=== PATIENT | female | born 1985 | race Caucasian/White ===

== ENCOUNTER 2016-04-05 01:48 | Emergency (ER) | payer OTHER ==
[~2016-04-05] VITALS: Ht 157.5 cm; Wt 62.4 kg
[~2016-04-05 01:48] MED LIST: IBUP-1449 PO; PENI-82 PO
[2016-04-05 01:55] VITALS: TEMP 36.9; Ht 157.5 cm; Wt 62.4 kg
[2016-04-05] MEDS ORDERED: KETOROLAC TROMETHAMINE 30 MG/ML VIAL IV STA (02:29)
[2016-04-05] MEDS ORDERED: ALBUT/IPRATROP 3MG/0.5MG NEB 3 ML VIAL INH STA (02:29)
[2016-04-05 02:33] LABS: BASO % 0.5 %; BASO ABS # 0.04 K/uL (0-0.2); COMPLETE YES; EOS % 1.8 %; HEMATOCRIT 38.6 % (37-47); IG% 0.1 %; LYMPH % 39.4 %; LYMPH ABS # 3.27 K/uL (1.2-3.4); MEAN CELL VOLUME 78.8 fL (80-100); MEAN CORPUSCULAR HEMOGLOBIN 26.7 pg (25-34); MEAN CORPUSCULAR HGB CONC 33.9 g/dl (32-36); MEAN PLATELET VOLUME 10.9 fL (7.4-10.4); MONO % 9.5 %; NEUT % 48.7 %; PLATELET COUNT 268 K/uL (130-400); WHITE BLOOD COUNT 8.31 K/uL (4.8-10.8)
--- NOTE | 2016-04-05 02:34 | EMERGENCY ROOM VISIT NOTE ---
History Report prepared by Paula: Priyanka Davis Under the Supervision of: Dr. Lebron Byrd D.O. First contact with patient: 01:51 Chief Complaint: CHEST PAIN Stated Complaint: CHEST PAIN Nursing Triage Summary: Pt presents als for evaluation of chest pain starting 1 hour prior to arrival. Radiates into right neck. Productive cough for yellow sputum. History of Present Illness The patient is a 30 year old female who presents to the Emergency Room with complaints of constant right sided chest pain for the past hour. She was getting ready to go to sleep when her pain started. It quickly worsened. She states that the pain is present all the time with occasional sharp waves of pain. She rates her pain as a 10/10 in severity. The patient's pain radiates into her right shoulder and neck. She took Percocet [employer] for pain. Taking a deep breath exacerbates her pain. She notes a cough with productive yellow sputum that just started tonight. She has not been around anyone with influenza. She reports some nausea. The patient denies vomiting and any personal history of blood clots. She has never had pain like this before. Her LNMP was March 09. She was brought to the ED by ambulance. She was given 4 aspirin and nitro en route that did not alleviate her pain. Source of History: patient Onset: 1 hour ago Position: chest (right) Symptom Intensity: 10/10 Quality: sharp Timing: constant, worsening Modifying Factors (Worsening): breathing Associated Symptoms: + cough (productive), + nausea, No vomiting Note: Pt denies any personal history of blood clots. Review of Systems See HPI for pertinent positives & negatives. A total of 10 systems reviewed and were otherwise negative. Past Medical & Surgical Medical Problems: (1) Acute liver failure (2) BREECH PRESENTAT-DELIVER (3) Deliver-Single Liveborn (4) DENTAL DISORDER NOS (5) FEM PELV INFLAM DIS NOS (6) Hepatitis C (7) Prev Delivry W/ Or W/O Ment Antepart Cond Family History FH: HTN (hypertension) FH: cancer FH: diabetes mellitus FH: seizures Heart disease Social History Smoking Status: Current Every Day Smoker Alcohol Use: none Drug Use: none Marital Status: single Housing Status: lives with family Occupation Status: employed Current/Historical Medications Scheduled Albuterol Hfa (Ventolin Hfa), 1 PUFF INH Q4 Allergies Coded Allergies: Tramadol (Verified Adverse Reaction, Intermediate, HEADACHE-MIGRAINES, ) Physical Exam Vital Signs Date Time Temp Pulse Resp B/P Pulse Ox O2 Delivery O2 Flow Rate FiO2 04/05/16 04:42 88 18 121/68 99 04/05/16 02:44 Room Air 04/05/16 02:44 Room Air 04/05/16 02:08 86 04/05/16 01:55 36.9 100 18 119/71 98 Room Air Physical Exam GENERAL: Patient is awake, alert, somewhat anxious appearing and uncomfortable. EYES: The conjunctivae are clear. The pupils are round and reactive. EARS, NOSE, MOUTH AND THROAT: The nose is without any evidence of any deformity. Mucous membranes are moist tongue is midline NECK: The neck is nontender and supple. RESPIRATORY: Splinting respirations were noted without evidence of wheezing rhonchi or rales. CARDIOVASCULAR: Regular rate and rhythm noted there no murmurs rubs or gallops normal S1 normal S2 GASTROINTESTINAL: The abdomen is soft. Bowel sounds are present in all quadrants. Abdomen is nontender MUSCULOSKELETAL/EXTREMITIES: There is no evidence of gross deformity full range of motion is noted in the hips and shoulders SKIN: There is no obvious evidence of any rash. There are no petechiae, pallor or cyanosis noted. NEUROLOGIC: Patient is awake alert and oriented x3 Medical Decision & Procedures ER Provider Diagnostic Interpretation: Chest x-ray as interpreted by myself reveals no free air, no pneumothorax, no infiltrate, no acute disease. Laboratory Results 04/05/16 01:45 Red Blood Count 4.90, Mean Corpuscular Volume 78.8, Mean Corpuscular Hemoglobin 26.7, Mean Corpuscular Hemoglobin Concent 33.9, Mean Platelet Volume 10.9, Neutrophils (%) (Auto) 48.7, Lymphocytes (%) (Auto) 39.4, Monocytes (%) (Auto) 9.5, Eosinophils (%) (Auto) 1.8, Basophils (%) (Auto) 0.5, Neutrophils # (Auto) 4.05, Lymphocytes # (Auto) 3.27, Monocytes # (Auto) 0.79, Eosinophils # (Auto) 0.15, Basophils # (Auto) 0.04 04/05/16 01:45 Test 04/05/16 01:45 04/05/16 02:00 White Blood Count 8.31 K/uL (4.8-10.8) Red Blood Count 4.90 M/uL (4.2-5.4) Hemoglobin 13.1 g/dL (12.0-16.0) Hematocrit 38.6 % (37-47) Mean Corpuscular Volume 78.8 fL (80-100) Mean Corpuscular Hemoglobin 26.7 pg (25-34) Mean Corpuscular Hemoglobin Concent 33.9 g/dl (32-36) Platelet Count 268 K/uL (130-400) Mean Platelet Volume 10.9 fL (7.4-10.4) Neutrophils (%) (Auto) 48.7 % Lymphocytes (%) (Auto) 39.4 % Monocytes (%) (Auto) 9.5 % Eosinophils (%) (Auto) 1.8 % Basophils (%) (Auto) 0.5 % Neutrophils # (Auto) 4.05 K/uL (1.4-6.5) Lymphocytes # (Auto) 3.27 K/uL (1.2-3.4) Monocytes # (Auto) 0.79 K/uL (0.11-0.59) Eosinophils # (Auto) 0.15 K/uL (0-0.5) Basophils # (Auto) 0.04 K/uL (0-0.2) RDW Standard Deviation 38.9 fL (36.4-46.3) RDW Coefficient of Variation 13.7 % (11.5-14.5) Immature Granulocyte % (Auto) 0.1 % Immature Granulocyte # (Auto) 0.01 K/uL (0.00-0.02) Prothrombin Time 11.0 SECONDS (9.0-12.0) Prothromb Time International Ratio 1.0 (0.9-1.1) Activated Partial Thromboplast Time 26.0 SECONDS (21.0-31.0) Partial Thromboplastin Ratio 1.0 Anion Gap 10.0 mmol/L (3-11) Est Creatinine Clear Calc Drug Dose 104.7 ml/min Estimated GFR () 134.8 Estimated GFR (Non- 116.3 BUN/Creatinine Ratio 8.9 (10-20) Calcium Level 8.8 mg/dl (8.5-10.1) Total Bilirubin 0.3 mg/dl (0.2-1) Aspartate Amino Transf (AST/SGOT) 124 U/L (15-37) Alanine Aminotransferase (ALT/SGPT) 215 U/L (12-78) Alkaline Phosphatase 74 U/L (45-117) Troponin I < 0.015 ng/ml (0-0.045) Total Protein 8.0 gm/dl (6.4-8.2) Albumin 3.9 gm/dl (3.4-5.0) Globulin 4.1 gm/dl (2.5-4.0) Albumin/Globulin Ratio 1.0 (0.9-2) Human Chorionic Gonadotropin, Qual NEG (NEG) Urine Color YELLOW Urine Appearance CLEAR (CLEAR) Urine pH 8.0 (4.5-7.5) Urine Specific [place] 1.009 (1.000-1.030) Urine Protein NEG (NEG) Urine Glucose (UA) NEG (NEG) Urine Ketones NEG (NEG) Urine Occult Blood 2+ (NEG) Urine Nitrite NEG (NEG) Urine Bilirubin NEG (NEG) Urine Urobilinogen NEG (NEG) Urine Leukocyte Esterase NEG (NEG) Urine WBC (Auto) 5-10 /hpf (0-5) Urine RBC (Auto) 10-30 /hpf (0-4) Urine Hyaline Casts (Auto) 1-5 /lpf (0-5) Urine Epithelial Cells (Auto) >30 /lpf (0-5) Urine Bacteria (Auto) 2+ (NEG) Laboratory results per my review. Medications Administered Medications (Trade) Dose Ordered Sig/Aury Route Start Time Stop Time Status Last Admin Dose Admin Ketorolac Tromethamine (Toradol Inj) 30 mg NOW STAT IV 04/05/16 02:29 04/05/16 02:30 DC 04/05/16 02:47 30 MG Albuterol/ Ipratropium (Duoneb) 3 ml NOW STAT INH 04/05/16 02:29 04/05/16 02:30 DC 04/05/16 02:47 3 ML ECG Indication: chest pain Rate (beats per minute): 91 Rhythm: normal sinus Findings: no acute ischemic change, no ectopy Comparison ECG Date: 05/27/15 Change: no significant change ED Course 0217: The patient was evaluated in room A12B. A complete history and physical examination were performed. 0229: Duoneb 3 ml INH, Toradol 30 mg IV 0413: I reassessed the patient at this time. She is feeling better and resting comfortably. I discussed the results and treatment plan with the patient. I answered all pertaining questions that she had. She expressed understanding and verbalized agreement. The patient will be discharged home. 0415: Oxycodone HCl 1 homepack PO Medical Decision Differential diagnosis: Etiologies such as cardiac ischemia, aortic dissection, pulmonary embolism, pneumonia, pneumothorax, musculoskeletal, infections, pericarditis, myocarditis , esophageal rupture, gastrointestinal, as well as others were entertained. Nursing notes reviewed. The patient is a 30-year-old female who presented to the emergency department for an evaluation of chest pain. The patient developed right-sided chest pain. The pain was very reproducible especially with deep breathing. The patient was not tachycardic or hypoxic. Her d-dimer was negative. Her EKG did not show any acute changes from previous and her cardiac biomarkers were negative. She was treated with IV pain medication and a DuoNeb in the emergency department. On subsequent reevaluation she was feeling much better and sleeping comfortably. I discussed the patient's laboratory and radiographic studies with her. I discussed the limitations of the emergency department workup for chest pain with her. At this time she was encouraged to rest and avoid any strenuous activity. She was also encouraged to call her family doctor in the morning to schedule a follow-up appointment. She was also encouraged to return to the emergency Department immediately if symptoms change worsen or the need arises. Impression Primary Impression: Right-sided chest pain Additional Impression: Pleurisy Scribe Attestation The scribe's documentation has been prepared under my direction and personally reviewed by me in its entirety. I confirm that the note above accurately reflects all work, treatment, procedures, and medical decision making performed by me. Departure Information Dispostion Home / Self-Care Prescriptions Albuterol Hfa (VENTOLIN HFA) 200 Puffs/[id number] Mcg Aers 1 PUFF INH Q4, #1 INHALER Prov: Lebron Byrd, DO 04/05/16 Referrals Angela Santizo (PCP) Forms HOME CARE DOCUMENTATION FORM, IMPORTANT VISIT INFORMATION, Work Instructions Patient Instructions [facility], [place] Additional Instructions Continue using Motrin and Tylenol as directed for pain. Call your family doctor in the morning to schedule a follow-up appointment. Rest and avoid any strenuous activity. Have your liver function studies rechecked again in 1 week and cousin were elevated in the emergency department this evening. Problem Qualifiers
[2016-04-05 02:47] LABS: PREG INTERNAL NEGATIVE QC NEG CLEAR BACKGROUND; PREG INTERNAL POSITIVE QC POS CONTROL LINE
[2016-04-05 02:50] LABS: ALT/SGPT 215 U/L (12-78); AST/SGOT 124 U/L (15-37); BLOOD UREA NITROGEN 6 mg/dl (7-18); BUN/CREATININE RATIO 8.9 (10-20); CALCIUM 8.8 mg/dl (8.5-10.1); CARBON DIOXIDE 24 mmol/L (21-32); CHLORIDE 107 mmol/L (98-107); CREATININE 0.67 mg/dl (0.60-1.20); GLUCOSE 90 mg/dl (70-99); POTASSIUM 3.6 mmol/L (3.5-5.1); SODIUM 141 mmol/L (136-145)
[2016-04-05 02:54] LABS: ALKALINE PHOSPHATASE 74 U/L (45-117)
[2016-04-05 03:50] LABS: URINE APPEARANCE CLEAR (CLEAR); URINE BILIRUBIN NEG (NEG); URINE COLOR YELLOW; URINE EPITHELIAL CELL AUTO >30 /lpf (0-5); URINE NITRITE NEG (NEG); URINE SPECIFIC GRAVITY 1.009 (1.000-1.030); UROBILINOGEN NEG (NEG)
[2016-04-05 03:53] LABS: MANUAL MICROSCOPIC REQUIRED? NO; REVIEW REQ? NO
[2016-04-05] MEDS ORDERED: VNTHFA/IN INH (04:15)
[2016-04-05] MEDS ORDERED: OXYCODONE IR HOME PACK PO ONE (04:15)
[2016-04-05 04:42] VITALS: BP 121/68; PULSE 88; O2SAT 99
--- NOTE | 2016-04-05 07:13 | DIAGNOSTIC IMAGING REPORT ---
SINGLE VIEW CHEST CLINICAL HISTORY: Dyspnea. Atypical chest pain. FINDINGS: An AP, portable, upright chest radiograph is compared to study dated 11/27/2015 and correlated with chest CT dated 11/19/2015. The examination is degraded by portable technique and patient rotation. The cardiomediastinal silhouette is unremarkable. The lungs and pleural spaces are clear. No pneumothorax is seen. The bony thorax is grossly intact. IMPRESSION: No active disease in the chest. Electronically signed by: Jameel Mckeon M.D. 04/05/2016 7:11 AM Dictated Date/Time: 04/05/2016 7:11 AM
== END 2016-04-05 04:42 | disposition home or self-care (01) ==
LOC: EDBD 01:48 → C.EDA 01:49
DX: R07.9 Chest pain, unspecified (principal); R09.1 Pleurisy; F17.200 Nicotine dependence, unspecified, uncomplicated; Z86.19 Personal history of other infectious and parasitic diseases; Z82.49 Family history of ischemic heart disease and other diseases of the circulatory system; Z83.3 Family history of diabetes mellitus; Z82.0 Family history of epilepsy and other diseases of the nervous system

== ENCOUNTER 2016-06-24 22:44 | Emergency (ER) | payer OTHER ==
[~2016-06-24] VITALS: Ht 157.5 cm; Wt 63.9 kg
[~2016-06-24 22:44] MED LIST changes: -IBUP-1449 PO; -PENI-82 PO; +VNTHFA/IN INH
[2016-06-24 22:55] VITALS: TEMP 37; Ht 157.5 cm; Wt 63.9 kg
[2016-06-24] MEDS ORDERED: KETOROLAC TROMETHAMINE 60 MG/2 ML VIAL IM STA (23:17)
--- NOTE | 2016-06-25 00:22 | EMERGENCY ROOM VISIT NOTE ---
History Report prepared by Paula: Yaw Zuluaga Under the Supervision of: Dr. Man Solis D.O. First contact with patient: 23:13 Chief Complaint: FACIAL PAIN/INJURY Stated Complaint: FELL HIT HEAD AND FACE AND CHIPPED TOOTH BAD History of Present Illness The patient is a 31 year old female who presents to the Emergency Room with complaints of persistent headaches secondary to a fall that occurred 2 days ago. The patient was walking down her steps when she fell face foreword. Associated symptoms include pain to left side of face, and feeling pressure behind her left eye. The patient adds that she chipped her tooth and cut her lip during the fall as well. She rates her discomfort an 8/10 in intensity. Source of History: patient Onset: 2 days ago Position: head Symptom Intensity: 8/10 Timing: other (Persistent ) Modifying Factors (Relieving): other (None ) Note: Associated symptoms include pain to left side of face, and feeling pressure behind her left eye Review of Systems See HPI for pertinent positives & negatives. A total of 10 systems reviewed and were otherwise negative. Past Medical & Surgical Medical Problems: (1) Acute liver failure (2) BREECH PRESENTAT-DELIVER (3) Deliver-Single Liveborn (4) DENTAL DISORDER NOS (5) FEM PELV INFLAM DIS NOS (6) Hepatitis C (7) Prev Delivry W/ Or W/O Ment Antepart Cond Family History FH: HTN (hypertension) FH: cancer FH: diabetes mellitus FH: seizures Heart disease Social History Smoking Status: Current Every Day Smoker Alcohol Use: none Drug Use: none Marital Status: single Housing Status: lives with family Occupation Status: employed Current/Historical Medications No Active Prescriptions or Reported Meds Allergies Coded Allergies: Tramadol (Verified Adverse Reaction, Intermediate, HEADACHE-MIGRAINES, 06/24) Physical Exam Vital Signs Date Time Temp Pulse Resp B/P Pulse Ox O2 Delivery O2 Flow Rate FiO2 06/25/16 00:32 95 18 106/76 99 06/24/16 22:55 37.0 105 19 129/80 98 Room Air Physical Exam CONSTITUTIONAL/VITAL SIGNS: Reviewed / noted above. GENERAL: Non-toxic in appearance. INTEGUMENTARY: Warm, dry, and [place]. HEAD: Normocephalic. EYES: without scleral icterus or trauma. ENT/OROPHARYNX: clear and moist. LYMPHADENOPATHY/NECK: Is supple without lymphadenopathy or meningismus. RESPIRATORY: Lungs clear and equal. CARDIOVASCULAR: Regular rate and rhythm. GI/ABDOMEN: Soft and nontender. No organomegaly or pulsatile mass. No rebound or guarding. Normal bowel sounds. EXTREMITIES: Warm and well perfused. BACK: No CVA tenderness. NEUROLOGICAL: Intact without focal deficits. PSYCHIATRIC: normal affect. MUSCULOSKELETAL: Normally developed with good muscle tone. Medical Decision & Procedures ER Provider Diagnostic Interpretation: CT report per my review and statrad interpretation; CT HEAD: No intracranial hemorrhage or skull fracture. Radiologist: Joey Easton M.D. Medications Administered Medications (Trade) Dose Ordered Sig/Aury Route Start Time Stop Time Status Last Admin Dose Admin Ketorolac Tromethamine (Toradol Inj) 60 mg NOW STAT IM 06/24/16 23:17 06/24/16 23:18 DC 06/24/16 23:38 60 MG ED Course 2313: Previous medical records were reviewed. The patient was evaluated in room B12. A complete history and physical examination was performed. 2317: Ordered Toradol Injection 60 mg IM. 0032: On reevaluation, the patient is resting more comfortably. I discussed the results and findings with the patient. She verbalized agreement of the treatment plan. She was discharged home. Medical Decision Differential includes close head injury, intracranial bleed, facial trauma, cervical spine trauma, chest and thoracic trauma, abdominal and intra-abdominal trauma, spine neurologic trauma, extremity trauma. . This is a 31-year-old female who presents to the ED with a chief complaint of pain in her head after slipping and falling down some steps. She states that she hit the back of her head on the steps. She states this occurred 2 days ago. Her vital signs are normal. Physical exam did not reveal any obvious trauma. CT scan of the brain did not show any acute process. She was treated with Toradol IM. She is felt to be stable for discharge. Impression Primary Impression: Head contusion Scribe Attestation The scribe's documentation has been prepared under my direction and personally reviewed by me in its entirety. I confirm that the note above accurately reflects all work, treatment, procedures, and medical decision making performed by me. Departure Information Dispostion Home / Self-Care Prescriptions No Active Prescriptions or Reported Meds Referrals Angela Santizo (PCP) Patient Instructions My [facility] Additional Instructions Follow-up with your doctor for further care and evaluation in 1-2 days. Return to the emergency department for worsening or new symptoms or any concerns. You have been examined and treated today on an emergency basis only. This is not a substitute for, or an effort to provide, complete comprehensive medical care. It is impossible to recognize and treat all injuries or illnesses in a single emergency department visit. It is therefore important that you follow up closely with your doctor. Call as soon as possible for an appointment. Take Ibuprofen 600mg every 6 hours for pain as needed.
[2016-06-25 00:32] VITALS: BP 106/76; PULSE 95; O2SAT 99
--- NOTE | 2016-06-25 07:16 | DIAGNOSTIC IMAGING REPORT ---
CT SCAN OF THE BRAIN WITHOUT IV CONTRAST CLINICAL HISTORY: Fall with head injury. COMPARISON STUDY: CT of the brain dated 05/31/2012. TECHNIQUE: Unenhanced axial CT scan of the brain is performed from the vertex to the skull base. Automated dose control exposure was utilized. CT DOSE: 537.48 mGy.cm FINDINGS: Brain parenchyma: The brain parenchyma is normal in appearance. There is no hemorrhage, mass effect, or evidence of acute territorial ischemia by CT criteria. [place]-white matter is preserved. No extra-axial fluid collection is seen. Ventricles, sulci, cisterns: Normal in configuration. Intracranial vasculature: The visualized intracranial vasculature at the skull base is normal in appearance. Calvarium: There is no depressed calvarial fracture. Sinuses and mastoids: The visualized paranasal sinuses are clear. The mastoid air cells are well pneumatized. Orbits: The bony orbits are grossly intact. IMPRESSION: No acute intracranial abnormality. Electronically signed by: Jameel Mckeon M.D. 06/25/2016 7:14 AM Dictated Date/Time: 06/25/2016 7:13 AM
[2016-12-19] MEDS ORDERED: OXYC-57 PO (14:01)
== END 2016-06-25 00:33 | disposition home or self-care (01) ==
LOC: C.EDB 22:46
DX: S00.93XA Contusion of unspecified part of head, initial encounter (principal); W10.8XXA Fall (on) (from) other stairs and steps, initial encounter; B19.20 Unspecified viral hepatitis C without hepatic coma; K76.9 Liver disease, unspecified; F17.200 Nicotine dependence, unspecified, uncomplicated; Z88.8 Allergy status to other drugs, medicaments and biological substances; Z82.49 Family history of ischemic heart disease and other diseases of the circulatory system; Z80.9 Family history of malignant neoplasm, unspecified; Z83.3 Family history of diabetes mellitus; Z82.0 Family history of epilepsy and other diseases of the nervous system

== ENCOUNTER 2016-11-13 11:58 | Emergency (ER) | payer OTHER ==
[~2016-11-13] VITALS: Ht 157.5 cm; Wt 66.9 kg
[2016-11-13 12:06] VITALS: TEMP 36.7; Ht 157.5 cm; Wt 66.9 kg
[2016-11-13] MEDS ORDERED: ONDANSETRON INJ 2 MG/ML 2 ML VIAL IV STA (12:13)
[2016-11-13] MEDS ORDERED: SODIUM CHLORIDE 0.9% 1000ML 1,000 ML IV STA (12:13)
[2016-11-13] MEDS ORDERED: KETOROLAC TROMETHAMINE 30 MG/ML VIAL IV STA (12:13)
--- NOTE | 2016-11-13 12:22 | EMERGENCY ROOM VISIT NOTE ---
History Report prepared by Paula: Daya Villagomez Under the Supervision of: Dr. Jameel Anand M.D. First contact with patient: 12:09 Chief Complaint: ABDOMINAL PAIN Stated Complaint: KIDNEY PAIN, LOWER ABDOMINAL PAIN History of Present Illness The patient is a 31 year old female who presents to the Emergency Room with complaints of sharp right back pain which radiates to her abdomen beginning yesterday. The patient has a history of kidney stones and states her current pain feels similar to when she had kidney stones. She ranks her pain as a 7/10. The patient notes nausea, burning when peeing, and a slight fever. She denies vomiting and diarrhea. The patient has a history of a cholecystectomy. Source of History: patient Onset: yesterday Position: abdomen Symptom Intensity: 7/10 Quality: sharp Associated Symptoms: + fevers, + nausea, + abdominal pain, + urinary symptoms, No vomiting, No diarrhea Review of Systems See HPI for pertinent positives & negatives. A total of 10 systems reviewed and were otherwise negative. Past Medical & Surgical Medical Problems: (1) Acute liver failure (2) BREECH PRESENTAT-DELIVER (3) Deliver-Single Liveborn (4) DENTAL DISORDER NOS (5) FEM PELV INFLAM DIS NOS (6) Hepatitis C (7) Prev Delivry W/ Or W/O Ment Antepart Cond Surgical Problems: (1) Hx of cholecystectomy Family History FH: HTN (hypertension) FH: cancer FH: diabetes mellitus FH: seizures Heart disease Social History Smoking Status: Former Smoker Alcohol Use: none Drug Use: none Marital Status: single Housing Status: lives with family Occupation Status: employed Current/Historical Medications Scheduled PRN Oxycodone Ir (Roxicodone Ir), 1 TAB PO Q4H PRN for Pain Allergies Coded Allergies: Tramadol (Verified Adverse Reaction, Intermediate, HEADACHE-MIGRAINES, ) Physical Exam Vital Signs Date Time Temp Pulse Resp B/P (MAP) Pulse Ox O2 Delivery O2 Flow Rate FiO2 11/13/16 14:53 73 18 107/67 97 11/13/16 14:04 71 18 104/75 100 Room Air 11/13/16 12:06 36.7 110 16 107/68 98 Room Air Physical Exam GENERAL: Patient is in no acute distress. HEENT: No acute trauma, normocephalic atraumatic, mucous membranes moist, no nasal congestion, no scleral icterus. NECK: No stridor, no adenopathy, no meningismus, trachea is midline. LUNGS: Clear to auscultation bilaterally, no wheeze, no rhonchi, breath sounds equal. HEART: Without murmurs gallops or rubs, regular rate and rhythm. ABDOMEN: Soft, nontender, bowel sounds positive, no hernias, no peritonitis. BACK: Mild right flank discomfort with percussion, pain also present with palpation. EXTREMITIES: No cyanosis or edema, full range of motion of all the joints without pain or difficulty, no signs for acute trauma. NEUROLOGIC: Oriented x 3, no acute motor or sensory deficits, no focal weakness. SKIN: No rash, no jaundice, no diaphoresis. Medical Decision & Procedures ER Provider Diagnostic Interpretation: Radiology results as stated below per my review and radiologist interpretation: RENAL ULTRASOUND FINDINGS: The right kidney measures 10.8 cm in maximal dimension and the left measures 11.1 cm. There is no hydronephrosis or hydroureter. Renal echogenicity, size and cortical thickness are normal. Both ureteral jets were identified. No renal calculi or masses are identified by sonography. Incidental note is made of a 4.9 x 3.8 x 3.7 cm right ovarian cyst that contains a few thin septations. IMPRESSION: 1. Normal sonographic appearance of the kidneys. No hydronephrosis. 2. 4.9 cm right renal cyst which contains a few thin septations. Electronically signed by: Shaan Cortez M.D. KUB FINDINGS: The bowel gas pattern is non-obstructive. There is no organomegaly. The previously noted punctate left-sided renal calculi are not seen on today's study. Renal shadows are partially obscured by formed colonic stool. There are phleboliths within the pelvis. No pneumoperitoneum or pneumatosis. No fracture. Cholecystectomy clips are noted. Mild convex left curvature of the lumbar spine is noted. IMPRESSION: 1. Previously noted punctate left renal calculi are not identified. No definite ureterolithiasis seen. 2. Nonobstructive bowel gas pattern. Electronically signed by: Brandon Bowie M.D. Laboratory Results 11/13/16 12:22 11/13/16 12:22 Test 11/13/16 12:20 11/13/16 12:22 Urine Color YELLOW Urine Appearance CLOUDY (CLEAR) Urine pH 6.5 (4.5-7.5) Urine Specific [place] 1.018 (1.000-1.030) Urine Protein NEG (NEG) Urine Glucose (UA) NEG (NEG) Urine Ketones NEG (NEG) Urine Occult Blood 3+ (NEG) Urine Nitrite NEG (NEG) Urine Bilirubin NEG (NEG) Urine Urobilinogen NEG (NEG) Urine Leukocyte Esterase NEG (NEG) Urine WBC (Auto) 10-30 /hpf (0-5) Urine RBC (Auto) >30 /hpf (0-4) Urine Hyaline Casts (Auto) 1-5 /lpf (0-5) Urine Epithelial Cells (Auto) >30 /lpf (0-5) Urine Bacteria (Auto) 1+ (NEG) Urine Yeast (Auto) (NONE PRSENT) Red Blood Count 5.52 M/uL (4.2-5.4) Mean Corpuscular Volume 80.6 fL (80-100) Mean Corpuscular Hemoglobin 25.2 pg (25-34) Mean Corpuscular Hemoglobin Concent 31.2 g/dl (32-36) RDW Standard Deviation 40.3 fL (36.4-46.3) RDW Coefficient of Variation 13.7 % (11.5-14.5) Mean Platelet Volume 11.0 fL (7.4-10.4) Anion Gap 7.0 mmol/L (3-11) Est Creatinine Clear Calc Drug Dose 105.6 ml/min Estimated GFR () 133.2 Estimated GFR (Non- 114.9 BUN/Creatinine Ratio 16.6 (10-20) Calcium Level 9.3 mg/dl (8.5-10.1) Total Bilirubin 0.3 mg/dl (0.2-1) Direct Bilirubin < 0.1 mg/dl (0-0.2) Aspartate Amino Transf (AST/SGOT) 30 U/L (15-37) Alanine Aminotransferase (ALT/SGPT) 46 U/L (12-78) Alkaline Phosphatase 74 U/L (45-117) Total Protein 8.8 gm/dl (6.4-8.2) Albumin 3.9 gm/dl (3.4-5.0) Lipase 130 U/L (73-393) Human Chorionic Gonadotropin, Qual NEG (NEG) Laboratory results reviewed by me. Medications Administered Medications (Trade) Dose Ordered Sig/Aury Route Start Time Stop Time Status Last Admin Dose Admin Ondansetron HCl (Zofran Inj) 4 mg NOW STAT IV 11/13/16 12:13 11/13/16 12:19 DC 11/13/16 12:49 4 MG Sodium Chloride 1,000 ml @ 999 mls/hr Q1H1M STAT IV 11/13/16 12:13 11/13/16 13:13 DC 11/13/16 12:49 999 MLS/HR Morphine Sulfate (MoRPHine SULFATE INJ) 4 mg Q15M PRN IV 11/13/16 12:15 11/13/16 15:17 DC 11/13/16 14:08 4 MG Ketorolac Tromethamine (Toradol Inj) 30 mg NOW STAT IV 11/13/16 12:13 11/13/16 12:19 DC 11/13/16 12:49 30 MG ED Course 1212: The patient was evaluated in room B3B. A complete history and physical exam was performed. 1213: Toradol Inj 30 mg Iv, Sodium Chloride 1000 ml @ 999 mls/hr IV, Zofran Inj 4 mg IV. 1215: Morphine Sulfate 4 mg IV. 1530: I reevaluated on the patient she states she is feeling fine and is ready to go home. 1545: Reevaluated the patient. Discussed results and discharge instructions: She verbalized understanding and agreement. The patient is ready for discharge. Medical Decision Differential diagnosis includes but is not limited too: renal colic, UTI or pyelonephritis, musculoskeletal pain, hydronephrosis, and renal failure. There is no leukocytosis or concerning anemia. No significant electrolyte abnormality, kidney failure or hepatitis. There is no pancreatitis. Urinalysis shows hematuria and what seems to be contamination, no infection. KUB does not show any ureteral stones. Renal ultrasound does not show hydronephrosis. A cyst was seen on the right kidney. The patient received IV Toradol, IV saline, IV Zofran and IV morphine, she feels improved. The cause for the pain is unclear. She may be passing a small ureteral stone. Her pain could be musculoskeletal. I'm discharging her with rest, hydration, she will strain her urine. If things are worsening, she will return for reassessment. Outpatient family doctor recheck was suggested this week. [place] Drug Monitoring [place] Search Results: patient reviewed within database, no issues identified Medication Reconcilliation Current Medication List: was personally reviewed by me Blood Pressure Screening Patient's blood pressure: Normal blood pressure Impression Primary Impression: Right flank pain Additional Impression: Hematuria Scribe Attestation The scribe's documentation has been prepared under my direction and personally reviewed by me in its entirety. I confirm that the note above accurately reflects all work, treatment, procedures, and medical decision making performed by me. Departure Information Dispostion Home / Self-Care Prescriptions Oxycodone Ir (Roxicodone Ir) 5 Mg Tab 1 TAB PO Q4H Y for Pain, #8 TAB Prov: Jameel Anand M.D. 11/13/16 Referrals No Doctor, Assigned (PCP) Forms Call Back Authorization, HOME CARE DOCUMENTATION FORM, IMPORTANT VISIT INFORMATION Patient Instructions My [facility] [place] Additional Instructions motrin and or tylenol for pain heat to the area may help oxy ir 1 tab every 4 hours as needed for severe pain see opal peace for recheck this week for the kidney cyst and the blood in the urine strain all the urine for a stone return for fever, vomiting or uncontrolled pain Problem Qualifiers
[2016-11-13 12:47] LABS: HEMATOCRIT 44.5 % (37-47); MEAN CELL VOLUME 80.6 fL (80-100); MEAN CORPUSCULAR HEMOGLOBIN 25.2 pg (25-34); MEAN CORPUSCULAR HGB CONC 31.2 g/dl (32-36); PLATELET COUNT 274 K/uL (130-400); RED BLOOD COUNT 5.52 M/uL (4.2-5.4); WHITE BLOOD COUNT 8.29 K/uL (4.8-10.8)
[2016-11-13 12:49] LABS: URINE APPEARANCE CLOUDY (CLEAR); URINE BILIRUBIN NEG (NEG); URINE COLOR YELLOW; URINE EPITHELIAL CELL AUTO >30 /lpf (0-5); URINE NITRITE NEG (NEG); URINE PH 6.5 (4.5-7.5); URINE SPECIFIC GRAVITY 1.018 (1.000-1.030); UROBILINOGEN NEG (NEG); ZZUR CULT IF INDIC CLEAN CATCH YES
[2016-11-13 12:53] LABS: MANUAL MICROSCOPIC REQUIRED? NO; REVIEW REQ? YES
[2016-11-13 13:07] LABS: ALT/SGPT 46 U/L (12-78); BLOOD UREA NITROGEN 11 mg/dl (7-18); BUN/CREATININE RATIO 16.6 (10-20); CALCIUM 9.3 mg/dl (8.5-10.1); CARBON DIOXIDE 24 mmol/L (21-32); CHLORIDE 108 mmol/L (98-107); CREATININE 0.68 mg/dl (0.60-1.20); GLUCOSE 96 mg/dl (70-99); POTASSIUM 3.9 mmol/L (3.5-5.1); SODIUM 139 mmol/L (136-145)
[2016-11-13] MEDS: MoRPHine SULFATE 4 MG/ML 1 ML CARP\\VIAL IV PRN ×2 (13:08→14:08)
[2016-11-13 13:10] LABS: ALKALINE PHOSPHATASE 74 U/L (45-117); AST/SGOT 30 U/L (15-37)
[2016-11-13 13:18] LABS: PREG INTERNAL NEGATIVE QC NEG CLEAR BACKGROUND; PREG INTERNAL POSITIVE QC POS CONTROL LINE
--- NOTE | 2016-11-13 13:40 | DIAGNOSTIC IMAGING REPORT ---
KUB HISTORY: Acute right flank pain, posse stone COMPARISON: CT abdomen and pelvis 02/06/2016 FINDINGS: The bowel gas pattern is non-obstructive. There is no organomegaly. The previously noted punctate left-sided renal calculi are not seen on today's study. Renal shadows are partially obscured by formed colonic stool. There are phleboliths within the pelvis. No pneumoperitoneum or pneumatosis. No fracture. Cholecystectomy clips are noted. Mild convex left curvature of the lumbar spine is noted. IMPRESSION: 1. Previously noted punctate left renal calculi are not identified. No definite ureterolithiasis seen. 2. Nonobstructive bowel gas pattern. Electronically signed by: Brandon Bowie M.D. 11/13/2016 1:38 PM Dictated Date/Time: 11/13/2016 1:36 PM
--- NOTE | 2016-11-13 14:11 | DIAGNOSTIC IMAGING REPORT ---
RENAL ULTRASOUND CLINICAL HISTORY: Right flank pain. Possible hydronephrosis. COMPARISON STUDY: Renal ultrasound October 09, [address] of the abdomen and pelvis February 06, 2016. TECHNIQUE: Sonography of the kidneys and the urinary bladder was performed. FINDINGS: The right kidney measures 10.8 cm in maximal dimension and the left measures 11.1 cm. There is no hydronephrosis or hydroureter. Renal echogenicity, size and cortical thickness are normal. Both ureteral jets were identified. No renal calculi or masses are identified by sonography. Incidental note is made of a 4.9 x 3.8 x 3.7 cm right ovarian cyst that contains a few thin septations. IMPRESSION: 1. Normal sonographic appearance of the kidneys. No hydronephrosis. 2. 4.9 cm right renal cyst which contains a few thin septations. Electronically signed by: Shaan Cortez M.D. 11/13/2016 2:10 PM Dictated Date/Time: 11/13/2016 1:58 PM
[2016-11-13] MEDS ORDERED: OXYC1TAB3 PO (14:46)
[2016-11-13 14:53] VITALS: BP 107/67; PULSE 73; O2SAT 97
[2016-12-19] MEDS ORDERED: OXYC-57 PO (14:01)
== END 2016-11-13 14:56 | disposition home or self-care (01) ==
LOC: C.EDB 11:59
DX: R10.30 Lower abdominal pain, unspecified (principal); R31.9 Hematuria, unspecified; N28.1 Cyst of kidney, acquired; B19.20 Unspecified viral hepatitis C without hepatic coma; Z90.49 Acquired absence of other specified parts of digestive tract; Z87.891 Personal history of nicotine dependence; Z88.8 Allergy status to other drugs, medicaments and biological substances; Z82.49 Family history of ischemic heart disease and other diseases of the circulatory system; Z80.9 Family history of malignant neoplasm, unspecified; Z83.3 Family history of diabetes mellitus; Z82.0 Family history of epilepsy and other diseases of the nervous system

== ENCOUNTER → 2016-12-12 | Outpatient (CLI) | payer OTHER ==
[~2016-12-12] MED LIST changes: +OXYC-57 PO; -VNTHFA/IN INH
== END | disposition home or self-care (01) ==
LOC: C.PAPS 14:08
PROVIDERS: ATTEND Obstetrics & Gynecology
DX: Z01.419 Encounter for gynecological examination (general) (routine) without abnormal findings (principal)

== ENCOUNTER → 2016-12-12 | Outpatient (CLI) | payer OTHER ==
[2016-12-12 14:21] LABS: URINE APPEARANCE CLEAR (CLEAR); URINE BILIRUBIN NEG (NEG); URINE COLOR YELLOW; URINE NITRITE NEG (NEG); URINE PH 7.5 (4.5-7.5); URINE SPECIFIC GRAVITY 1.018 (1.000-1.030); UROBILINOGEN NEG (NEG)
[2016-12-12 14:27] LABS: MANUAL MICROSCOPIC REQUIRED? NO; REVIEW REQ? NO
[2016-12-15 01:27] LABS: CHLAMYDIA TRACH RNA*** NOT DETECTED (NOT DETECTED); GC (NEIS GONORRHOEAE)RNA** NOT DETECTED (NOT DETECTED)
== END | disposition home or self-care (01) ==
LOC: C.LABSPEC 13:43
PROVIDERS: ATTEND Obstetrics & Gynecology
DX: N89.8 Other specified noninflammatory disorders of vagina (principal); N39.0 Urinary tract infection, site not specified

== ENCOUNTER → 2016-12-19 | Day surgery (SDC) | payer OTHER ==
[2016-11-21 15:30] VITALS: Ht 157.5 cm; Wt 61.4 kg
[2016-12-12 12:37] LABS: HEMATOCRIT 37.4 % (37-47); MEAN CELL VOLUME 80.8 fL (80-100); MEAN CORPUSCULAR HEMOGLOBIN 26.6 pg (25-34); MEAN CORPUSCULAR HGB CONC 32.9 g/dl (32-36); MEAN PLATELET VOLUME 11.3 fL (7.4-10.4); PLATELET COUNT 254 K/uL (130-400); RED BLOOD COUNT 4.63 M/uL (4.2-5.4); WHITE BLOOD COUNT 8.45 K/uL (4.8-10.8)
--- NOTE | 2016-12-16 21:04 | HISTORY & PHYSICAL EXAMINATION ---
DATE OF ADMISSION: 12/19/2016 CHIEF COMPLAINT: Abdominal mass and dysmenorrhea. HISTORY OF PRESENT ILLNESS: The patient is a 31-year-old white female 3, para 3, whose last menstrual period was 12/02/2016. Her menses have been extremely painful. She is status post 3 sections. She had a tubal ligation done with her last . The patient complains of an abdominal lump, which she has had for at least 6 months. It is very tender to touch. ALLERGIES: THE PATIENT REPORTS AN ALLERGY TO ULTRAM. MEDICATIONS: The patient takes no medications at this time. ILLNESSES: The patient is presently being treated for Gardnerella vaginalis. She gives a history of hepatitis C. She has also been treated for cervical dysplasia in the past. PAST SURGICAL HISTORY: The patient is status post LEEP of the cervix, 3 C-sections as above and a tubal ligation. She has also undergone laparoscopic cholecystectomy. FAMILY HISTORY: Her father had prostate cancer. Her sister has diabetes and heart problems. Her brother has diabetes. Her aunt had ovarian cancer and breast cancer. She has an uncle with lung cancer. SOCIAL HISTORY: The patient smokes cigarettes, one half pack per day. She denies drinking alcohol or using drugs. PHYSICAL EXAMINATION: VITAL SIGNS: Height 5 foot 2-3/4 inches, weight 144 pounds. HEENT: Grossly within normal limits. NECK: Supple without masses. CHEST: Her lungs are clear without wheezing. HEART: Regular rate and rhythm. No murmurs, gallops or rubs. ABDOMEN: Soft. Along her suprapubic scar, there is a 1-2 cm mass just to the right of midline. This is tender to palpation. It seems to be rather superficial to muscle and fascia. PELVIC: External genitalia normal. Vagina pink and stimulated moderate amount of thin white discharge. Cervix, no lesions visible. Uterus within normal limits and some tenderness to palpation. Adnexa mild tenderness bilaterally. No masses palpable. EXTREMITIES: No cyanosis, clubbing or edema. IMPRESSION: 1. Abdominal wall mass. 2. Chronic dysmenorrhea. PLAN: The patient is for removal of a scar mass as well as diagnostic laparoscopy with possible operative laparoscopy to include placement of the scope into the abdomen with or without lysis of adhesions, laser ablation, fulguration or excision of endometrial implants. The patient is aware of the risks of infection, bleeding, possible recurrence of her scar mass, possible perforation of the uterus, possible injury to internal organs requiring additional surgery or treatment, possible persistence of chronic dysmenorrhea. The patient is aware of the risks of no surgery and the option of not performing surgery as well as the option for medical treatment of her dysmenorrhea. WERO
[~2016-12-19] VITALS: Ht 157.5 cm; Wt 61.4 kg
[~2016-12-19] MED LIST changes: +ATROPINE SULFATE 0.1 MG/ML 5ML SYR IV PRN; +DEXAMETHASONE SOD INJ 4 MG/ML VIAL ONE; +EpHEDrine SULFATE INJ 50 MG/ML AMP IV PRN; +FENTANYL CITRATE INJ 50 MCG/1 ML 2 ML VIAL ONE; +FLUMAZENIL 0.1 MG/1 ML 10 ML VIAL IV PRN; +GLYCOPYRROLATE INJ 0.2 MG/ML VIAL ONE; +HYDROmorphone INJ 2 MG/ML SYR/VIAL IV PRN; +KETOROLAC TROMETHAMINE 30 MG/ML VIAL ONE; +LABETALOL HCL IV 5 MG/ML 20ML IV PRN; +LACTATED RINGER'S 1000ML 1,000 ML IV SCH; +LIDOCAINE HCL 2% 2 ML VIAL (20MG/ML) ONE; +MEPERIDINE HCL 25 MG/ML CARP IV PRN; +MIDAZOLAM HCL 1 MG/ML 2ML VIAL ONE; +NALOXONE HCL 0.4 MG/1 ML VIAL/CARP IV PRN; +NEOSTIGMINE METHYLSULFATE 5 MG/5 ML SYR ONE; +ONDANSETRON INJ 2 MG/ML 2 ML VIAL IV PRN; +ONDANSETRON INJ 2 MG/ML 2 ML VIAL ONE; +OXYCODONE/ACETAMINOPHEN 5-325 TAB PO PRN; +PHENYLEPHRINE 100MCG/ML 5ML SYR IV PRN; +PROPOFOL IV EMULSION 10 MG/ML 20 ML VIAL IV ONE; +ROCURONIUM BROMIDE 10 MG/ML 5 ML VIAL IV ONE; +SODIUM CHLORIDE 0.9% 1000ML 1,000 ML IV SCH
--- NOTE | 2016-12-19 11:38 | History & Physical Bridge - SC ---
H&P Re-Evaluation Bridge Note: I have examined the patient, reviewed the History & Physical and in the interval since the performance of the History & Physical I have noted the following changes of clinical significance: No changes noted
--- NOTE | 2016-12-19 13:40 | [facility] Post Operative Brief Note ---
Immediate Operative Summary Operative Date Dec 19, 2016. Pre-Operative Diagnosis Abdominal Wall Lump, Dysmenorrhea Post-Operative Diagnosis Same with pathology pending. Pelvic adhesions, right ovarian cyst Procedure(s) Performed Diagnostic Laparoscopy With Lysis of Adhesions And Removal Of Scar Mass Surgeon Dr Paulino Beef Cattle Farmer Surgeon(s) None Estimated Blood Loss 25ml Findings See dictated note. Specimens A: Scar Mass Complication(s) None Disposition Recovery Room / PACU
--- NOTE | 2016-12-19 13:54 | Discharge Instructions-SurgCtr ---
Discharge Instructions Date of Service Dec 19, 2016. Visit Reason for Visit: Abdominal Wall Lump, Dysmenorrhea Discharge Discharge Diagnosis / Problem: S/P excision of abdominal wall lump, diagnositic laparoscopy Discharge Goals Goal(s): Diagnostic testing, Therapeutic intervention Activity Recommendations Activity Limitations: per Instructions/Follow-up section Anesthesia . Post Anesthesia Instructions: If you have had General Anesthesia or IV Sedation: * Do not drive today. * Resume driving when surgeon permits. * Do not make important decisions or sign legal documents today. * Call surgeon for: 1. Temperature elevations greater than 101 degrees F. 2. Uncontrollable pain. 3. Excessive bleeding. 4. Persistent nausea and vomiting. 5. Medication intolerance (nausea, vomiting or rash). * For nausea and vomiting use only clear liquids such as: tea, soda, bouillon until nausea subsides, then gradually increase diet as tolerated. * If you have any concerns or questions, call your surgeon's office. If physician is unavailable and it is an emergency, call 911 or go to the nearest emergency room. . Instructions / Follow-Up Instructions / Follow-Up ACTIVITY RECOMMENDATIONS: * Rest the first 2-3 days. You should be back to your normal activity levels by day 3. * No heavy lifting for 2 weeks. * No intercourse, tampons or douching for 2 weeks. * You may shower in 24 hours. * Do not drive anytime that you are taking narcotic pain medicines. RETURN TO SCHOOL/WORK: * May return to school or work after 3 days. DIET: Nausea may occur in the immediate post-operative period. If so, take clear liquids such as tea, bouillon, apple juice until all nausea has subsided, then resume usual diet. MEDICATIONS: Resume previous medications unless instructed otherwise by your surgeon. Ibuprofen 200mg 2-3 tablets every 4-6 hours as needed -- OR -- Aleve 2 tablets every 8-12 hours as needed for post-operative discomfort Medications are over the counter. Tylenol may be used if above medications are contraindicated or not preferred. Medication should be taken with food or milk. Do not take on an empty stomach. SPECIAL CARE INSTRUCTIONS: * Check temperature twice daily for one week. report any elevation over 101 degrees. * You may experience some vagina spotting and/or bleeding. This is normal for 1 -2 weeks and should not be heavier than a normal period. If it is unusual in amount, call your physician. * Post-operative discomfort may consist of a sore throat, a "bloated" feeling and pain in the shoulders. these are normal symptoms, which usually only last for 2-3 days. * Remove band-aids tomorrow and shower. Use new bandaids daily for 3-4 days. FOLLOW UP VISIT: Call your doctor's office for a post-operative 3-4 week visit if not already scheduled. Call [phone] Diet Recommendations Home Diet: resume previous diet Procedures Procedures Performed: Diagnostic Laparoscopy With Lysis of Adhesions And Removal Of Scar Mass Pending Studies Studies pending at discharge: yes List of pending studies: The office will call you with the pathology report on the scar lump. Medical Emergencies . Who to Call and When: Medical Emergencies: If at any time you feel your situation is an emergency, please call 911 immediately. . Non-Emergent Contact Non-Emergency issues call your: Pharmaceutical Officer Call Non-Emergent contact if: temperature is above 100.5, wound has increased drainage, wound has increased redness, wound has increased pain . . "Provider Documentation" section prepared by Maranda Paulino. . [place] Drug Monitoring [place] Search Results: patient reviewed within database Drug Monitoring Findings: Prescriptions for narcotics noted and discussed with patient.
[2016-12-19] MEDS: FENTANYL CITRATE INJ 50 MCG/1 ML 2 ML VIAL IV PRN ×4 (14:04→14:22)
[2016-12-19 14:42] VITALS: TEMP 36.6
--- NOTE | 2016-12-19 14:46 | OPERATIVE REPORT ---
DATE OF OPERATION: 12/19/2016 PREOPERATIVE DIAGNOSES: Abdominal wall lump at section scar and chronic dysmenorrhea. POSTOPERATIVE DIAGNOSES: Same with pathology pending. Pelvic adhesions and right ovarian cyst. PROCEDURES: Excision of section scar mass and diagnostic laparoscopy with lysis of adhesions. DESCRIPTION OF PROCEDURE: The patient was taken to the operating room, where general anesthesia was administered. After an adequate level was obtained, she was placed in dorsal lithotomy position. Abdomen, vulva, vagina, and cervix were prepped with Betadine solution. The patient was draped. Hulka clamp was inserted into the uterus and a Hannon catheter placed in the bladder, so that the bladder could drain during the procedure. A scalpel was then used to make a 3-cm incision over the area of the scar mass. The incision was carried down through the subcutaneous tissues, both bluntly and sharply. It was finally possible to remove the hard mass. The mass itself felt approximately 1.5 cm in diameter, though tissue removed was a 2-3 cm in size. Fascia was palpated following removal of this mass and there was no defect palpable. Subcutaneous tissues were reapproximated with interrupted sutures of 3-0 Vicryl. A subcuticular stitch of 3-0 Vicryl was placed to close the skin. Diagnostic laparoscopy was then carried out. An incision was made at the lower edge of the umbilicus extending inferiorly. The incision was carried down through the subcutaneous tissue to the fascia. Fascia was incised vertically at the midline. The fascial incision was extended approximately 2-2.5 cm. The peritoneum was entered sharply. The sheath for the scope was then placed and the abdomen insufflated with CO2. The scope was placed. There was a thick band of adhesions across the anterior wall of the abdomen, no more than about 6 cm inferior to the umbilical incision. It was possible to get beyond the adhesions on the left side of the abdomen and it was possible to visualize the pelvic organs from there. A 1 cm incision was made suprapubically and a trocar and port inserted under direct visualization. Probe was used through this port to help visualize the pelvic organs. The uterus appeared normal. The right fallopian tube appeared normal, although the right ovary appeared to be enlarged with a benign appearing cyst. There were no excrescences or papillations on the external surface of the cyst. The left fallopian tube was adherent to the left side of the pelvic wall, but otherwise normal in appearance. It should be noted that both fallopian tubes showed evidence of prior tubal. The left ovary appeared normal with evidence of a corpus luteum cyst. There was no obvious evidence of endometriosis in the pelvis. There was another smaller band of omentum adherent to the anterior abdominal wall in the right lower quadrant. After photos were taken, a decision was made to try to lyse the adhesions of the fallopian tube and the small band of adhesions in the right lower quadrant. This was done with the ball tip and a hook tip wire cautery. There was no unexpected bleeding. It should be noted that the appendix was visualized and appeared normal. In examining the wide band of omental adhesions inferior to the umbilicus, a decision was made by me that the risk of bleeding and possible injury to bowel in attempting to lyse the adhesions would not be worth the risk. At this point, the procedure was ended. Gas was allowed to escape from the abdomen. The fascia was closed with 2 sutures of 0 Vicryl. The subcutaneous sutures of 3-0 Vicryl were placed at the umbilical incision. Steri-Strips and Band-Aids were placed on the wounds. The patient tolerated the procedure well. ESTIMATED BLOOD LOSS: Less than 25 mL. I attest to the content of the Intraoperative Record and any orders documented therein. Any exceptions are noted below. WERO
--- NOTE | 2016-12-19 15:05 | Anesthesia Progress Nt - [facility] ---
Anesthesia Post Op Note Date & Time Dec 19, 2016 at 15:05 Vital Signs Pain Intensity: 3 Vital Signs Past 12 Hours Date Time Temp Pulse Resp B/P (MAP) Pulse Ox O2 Delivery O2 Flow Rate FiO2 12/19/16 14:42 36.6 68 16 120/86 (97) 100 Room Air 12/19/16 14:37 36.4 71 20 123/73 99 Room Air 12/19/16 14:31 73 18 12/19/16 14:31 74 18 112/76 98 12/19/16 14:29 115/59 12/19/16 14:26 61 10 12/19/16 14:26 60 10 115/59 100 12/19/16 14:21 65 12 12/19/16 14:21 65 12 108/66 100 12/19/16 14:16 59 14 114/70 100 12/19/16 14:16 58 14 12/19/16 14:11 62 16 12/19/16 14:11 61 16 100 12/19/16 14:10 125/78 12/19/16 14:07 103/56 12/19/16 14:06 82 15 12/19/16 14:06 82 15 100 12/19/16 14:01 73 25 110/87 100 12/19/16 14:01 73 25 12/19/16 13:56 71 13 12/19/16 13:56 72 13 100 12/19/16 13:55 114/69 12/19/16 13:51 72 20 100 12/19/16 13:51 73 20 12/19/16 13:50 115/78 12/19/16 13:49 118/76 12/19/16 13:48 36.5 76 16 118/76 98 Room Air 12/19/16 13:48 80 98 12/19/16 13:48 80 12/19/16 11:04 36.8 77 16 108/62 (77) 98 Room Air Notes Mental Status: alert / awake / arousable, participated in evaluation Pt Amnestic to Procedure: Yes Nausea / Vomiting: adequately controlled Pain: adequately controlled Airway Patency, RR, SpO2: stable & adequate BP & HR: stable & adequate Hydration State: stable & adequate Anesthetic Complications: no major complications apparent
[2016-12-19 15:23] VITALS: BP 127/78; PULSE 81; O2SAT 100
== END | disposition home or self-care (01) ==
LOC: X.SURG 10:37
PROVIDERS: ATTEND Obstetrics & Gynecology
DX: R19.00 Intra-abdominal and pelvic swelling, mass and lump, unspecified site (principal); N94.6 Dysmenorrhea, unspecified; N80.9 Endometriosis, unspecified; B19.20 Unspecified viral hepatitis C without hepatic coma; Z98.890 Other specified postprocedural states; Z98.51 Tubal ligation status; Z90.49 Acquired absence of other specified parts of digestive tract; Z83.3 Family history of diabetes mellitus; Z82.49 Family history of ischemic heart disease and other diseases of the circulatory system; Z80.3 Family history of malignant neoplasm of breast; F17.200 Nicotine dependence, unspecified, uncomplicated

== ENCOUNTER 2016-12-21 13:32 | Emergency (ER) | payer OTHER ==
[~2016-12-21] VITALS: Ht 157.5 cm; Wt 68.7 kg
[~2016-12-21 13:32] MED LIST changes: -ATROPINE SULFATE 0.1 MG/ML 5ML SYR IV PRN; -DEXAMETHASONE SOD INJ 4 MG/ML VIAL ONE; -EpHEDrine SULFATE INJ 50 MG/ML AMP IV PRN; -FENTANYL CITRATE INJ 50 MCG/1 ML 2 ML VIAL ONE; -FLUMAZENIL 0.1 MG/1 ML 10 ML VIAL IV PRN; -GLYCOPYRROLATE INJ 0.2 MG/ML VIAL ONE; -HYDROmorphone INJ 2 MG/ML SYR/VIAL IV PRN; -KETOROLAC TROMETHAMINE 30 MG/ML VIAL ONE; -LABETALOL HCL IV 5 MG/ML 20ML IV PRN; -LACTATED RINGER'S 1000ML 1,000 ML IV SCH; -LIDOCAINE HCL 2% 2 ML VIAL (20MG/ML) ONE; -MEPERIDINE HCL 25 MG/ML CARP IV PRN; -MIDAZOLAM HCL 1 MG/ML 2ML VIAL ONE; -NALOXONE HCL 0.4 MG/1 ML VIAL/CARP IV PRN; -NEOSTIGMINE METHYLSULFATE 5 MG/5 ML SYR ONE; -ONDANSETRON INJ 2 MG/ML 2 ML VIAL IV PRN; -ONDANSETRON INJ 2 MG/ML 2 ML VIAL ONE; -OXYCODONE/ACETAMINOPHEN 5-325 TAB PO PRN; -PHENYLEPHRINE 100MCG/ML 5ML SYR IV PRN; -PROPOFOL IV EMULSION 10 MG/ML 20 ML VIAL IV ONE; -ROCURONIUM BROMIDE 10 MG/ML 5 ML VIAL IV ONE; -SODIUM CHLORIDE 0.9% 1000ML 1,000 ML IV SCH
[2016-12-21 13:34] VITALS: TEMP 36.9; Ht 157.5 cm; Wt 68.7 kg
[2016-12-21] MEDS ORDERED: PERCOCET HOME PACK PO ONE (14:00)
[2016-12-21] MEDS ORDERED: OXYCODONE/ACETAMINOPHEN 5-325 TAB PO ONE (14:00)
--- NOTE | 2016-12-21 14:18 | EMERGENCY ROOM VISIT NOTE ---
History Report prepared by Paula: Manny Grove Under the Supervision of: Dr. Sin Luis D.O. First contact with patient: 13:42 Chief Complaint: OTHER COMPLAINT Stated Complaint: COMPLICATIONS FROM SURGERY History of Present Illness The patient is a 31 year old female who presents to the Emergency Room with complaints of constant abdominal pain starting earlier today. The patient states that she had abdominal surgery two days ago, and today she fell and tried to catch herself. She states that she felt something tear, and she states that it hurts all around the area. Source of History: patient Onset: this morning Position: abdomen Quality: other (tear) Timing: constant Note: Associated symptoms: fall Review of Systems See HPI for pertinent positives & negatives. A total of 10 systems reviewed and were otherwise negative. Past Medical & Surgical Medical Problems: (1) Acute liver failure (2) BREECH PRESENTAT-DELIVER (3) Deliver-Single Liveborn (4) DENTAL DISORDER NOS (5) FEM PELV INFLAM DIS NOS (6) Hepatitis C (7) Prev Delivry W/ Or W/O Ment Antepart Cond Surgical Problems: (1) Hx of cholecystectomy Family History FH: HTN (hypertension) FH: cancer FH: diabetes mellitus FH: seizures Heart disease Social History Smoking Status: Current Every Day Smoker Alcohol Use: none Drug Use: none Marital Status: single Housing Status: lives with family Occupation Status: employed Current/Historical Medications No Active Prescriptions or Reported Meds Allergies Coded Allergies: Tramadol (Verified Adverse Reaction, Intermediate, HEADACHE-MIGRAINES, 12/21/16) Physical Exam Vital Signs Date Time Temp Pulse Resp B/P (MAP) Pulse Ox O2 Delivery O2 Flow Rate FiO2 12/21/16 13:34 36.9 110 16 121/83 99 Room Air Physical Exam CONSTITUTIONAL/VITAL SIGNS: Reviewed / noted above. GENERAL: Non-toxic in appearance. INTEGUMENTARY: Warm, dry, and [place]. HEAD: Normocephalic. EYES: without scleral icterus or trauma. ENT/OROPHARYNX: clear and moist. LYMPHADENOPATHY/NECK: Is supple without lymphadenopathy or meningismus. RESPIRATORY: Lungs clear and equal. CARDIOVASCULAR: Regular rate and rhythm. GI/ABDOMEN: Some post-surgical changes in the abdomen without evidence of new injury related to a fall. Soft and nontender. No organomegaly or pulsatile mass. No rebound or guarding. Normal bowel sounds. EXTREMITIES: Warm and well perfused. BACK: No midline tenderness to the spine. N obvious redness, bruising, or tenderness. No CVA tenderness. NEUROLOGICAL: Intact without focal deficits. PSYCHIATRIC: normal affect. MUSCULOSKELETAL: Normally developed with good muscle tone. Medical Decision & Procedures Medications Administered Medications (Trade) Dose Ordered Sig/Aury Route Start Time Stop Time Status Last Admin Dose Admin Oxycodone/ Acetaminophen (Percocet 5-325mg Tab) 1 tab NOW ONCE PO 12/21/16 14:00 12/21/16 14:01 DC 12/21/16 14:05 1 TAB ED Course 1342: Previous medical records were reviewed. The patient was evaluated in room B7. A complete history and physical examination was performed. 1400: Oxycodone/ Acetaminophen 1 Home Pack PO, Oxycodone/Acetaminophen 1 Tab PO Medical Decision Differential includes close head injury, intracranial bleed, facial trauma, cervical spine trauma, chest and thoracic trauma, abdominal and intra-abdominal trauma, spine neurologic trauma, extremity trauma. This is a 31-year-old female who presents to the ED after slipping down her steps. The patient states that she had laparoscopic surgery a couple of days ago. I did review that record. The patient states that she slipped down a few steps today causing some increased discomfort in her abdomen where she had the surgery. The actual incisions look well. There is no obvious trauma to the patient's back or buttocks. She has no ecchymosis, redness or obvious deformity. There is no tenderness to palpation the back or midline. No obvious abnormalities are noted to the abdomen other than the expected postsurgical changes with some mild ecchymosis and clean incisions. Abdomen was slightly tender in the areas of the incision. The patient did not strike her head or lose consciousness. After exam, there is no obvious injuries. She is felt to be stable for discharge. She has run out of her Percocet that was provided to her with discharge. She was given a Percocet here and a Percocet home pack. Medication Reconcilliation Current Medication List: was personally reviewed by me Blood Pressure Screening Patient's blood pressure: Normal blood pressure Impression Primary Impression: Fall Additional Impression: Pain Scribe Attestation The scribe's documentation has been prepared under my direction and personally reviewed by me in its entirety. I confirm that the note above accurately reflects all work, treatment, procedures, and medical decision making performed by me. Departure Information Dispostion Home / Self-Care Prescriptions No Active Prescriptions or Reported Meds Referrals Angela Santizo (PCP) Forms HOME CARE DOCUMENTATION FORM, IMPORTANT VISIT INFORMATION, WORK / SCHOOL INSTRUCTIONS Patient Instructions My [facility] Additional Instructions Follow-up with your doctor for further care and evaluation in 1-2 days. Return to the emergency department for worsening or new symptoms or any concerns. You have been examined and treated today on an emergency basis only. This is not a substitute for, or an effort to provide, complete comprehensive medical care. It is impossible to recognize and treat all injuries or illnesses in a single emergency department visit. It is therefore important that you follow up closely with your doctor. Call as soon as possible for an appointment. Percocet provided. No driving within 6 hours of use. Do not take additional Tylenol while taking Percocet. Problem Qualifiers
[2016-12-21 14:42] VITALS: BP 120/81; PULSE 98; O2SAT 99
== END 2016-12-21 14:45 | disposition home or self-care (01) ==
LOC: C.EDB 13:33
DX: R52 Pain, unspecified (principal); W19.XXXA Unspecified fall, initial encounter; B19.20 Unspecified viral hepatitis C without hepatic coma; Z82.49 Family history of ischemic heart disease and other diseases of the circulatory system; Z83.3 Family history of diabetes mellitus; Z82.0 Family history of epilepsy and other diseases of the nervous system; F17.200 Nicotine dependence, unspecified, uncomplicated

== ENCOUNTER 2017-01-14 15:15 | Emergency (ER) | payer OTHER ==
[~2017-01-14] VITALS: Ht 157.5 cm; Wt 66.4 kg
[2017-01-14 15:25] VITALS: TEMP 36.8; Ht 157.5 cm; Wt 66.4 kg
[2017-01-14] MEDS ORDERED: KETOROLAC TROMETHAMINE 60 MG/2 ML VIAL IM STA (16:19)
[2017-01-14 16:34] LABS: URINE APPEARANCE CLEAR (CLEAR); URINE BILIRUBIN NEG (NEG); URINE COLOR YELLOW; URINE NITRITE NEG (NEG); URINE SPECIFIC GRAVITY 1.009 (1.000-1.030); UROBILINOGEN NEG (NEG); ZZUR CULT IF INDIC CLEAN CATCH YES
[2017-01-14 16:35] LABS: URINE EPITHELIAL CELL AUTO >30 /lpf (0-5)
[2017-01-14 16:37] LABS: MANUAL MICROSCOPIC REQUIRED? NO; REVIEW REQ? YES
--- NOTE | 2017-01-14 17:03 | EMERGENCY ROOM VISIT NOTE ---
ED Visit Note First contact with patient: 16:09 CHIEF COMPLAINT: RLQ abdominal pain, right ovarian cyst, dysuria, hematuria, urinary urgency/frequency HISTORY OF PRESENT ILLNESS: This 31-year-old female patient presents to the emergency department ambulatory, with her mother, complaining of right lower quadrant abdominal pain, right flank pain, dysuria, urinary frequency, urinary hesitancy, and hematuria. She states she was seen at [facility] last week for similar symptoms because she thought she may have a kidney stone. The patient states a CT scan of her Abdomen and pelvis was performed and she was told she has a 6cm ovarian cyst. Patient states her abdominal pain has been present and intermittent since last week. She states the urinary symptoms began at approximately 1:30 AM. States at this time, she was awoken to go to the bathroom, and as she was urinating, she heard a "clunk" sound in the toilet. She states she looked in the toilet and there was nothing there. She describes nausea associated with her symptoms. She states she constantly feels like she has to urinate, however when she goes she is only able to go a small amount, and continues to have urinary retention. The patient denies any fever, chills, chest pain, dyspnea, dizziness, lightheadedness, vomiting, diarrhea, constipation, pus in her urine, or other concerning symptoms. REVIEW OF SYSTEMS: A 10 system review of systems was performed with positives and pertinent negatives listed in the history of present illness. All other systems were reviewed and are negative. ALLERGIES: Tramadol MEDICATIONS: Clindamycin, penicillin, amoxicillin. The patient states she is on all 3 of these antibiotics which have been prescribed by her oral surgeon in [place]. She states she was instructed to take all of these medications twice daily for 2 weeks. PMH: Dental abscess SOCIAL HISTORY: The patient lives locally with family. She denies drug, alcohol use. She admits to smoking approximately one half pack cigarettes per day. PHYSICAL EXAM: VITALS: Vitals are noted on the nurse's note and reviewed by myself. Vital signs stable. GENERAL: This is a 31-year-old white female, in no acute distress, nondiaphoretic, well-developed well-nourished. SKIN: The skin was without rashes, erythema, edema, or bruising. There is no tenting of the skin. Capillary reflex less than 2 seconds. HEAD: Normocephalic atraumatic. EARS: External auditory canals clear, tympanic membranes pearly bryant without erythema or effusion bilaterally. EYES: Pupils equal round and reactive to light and accommodation. Conjunctivae without injection, sclerae without icterus. Extraocular movements intact. NOSE: Patent, turbinates without inflammation or discharge. No sinus tenderness. MOUTH: Mucous membranes moist. Tonsils are not enlarged. Pharynx without erythema or exudate. Uvula midline. Airway patent. Tongue does not deviate. NECK: Supple without nuchal rigidity. No lymphadenopathy. No thyromegaly. Cervical spine is nontender. No JVD. HEART: Regular rate and rhythm without murmurs gallops or rubs. LUNGS: Clear to auscultation bilaterally without wheezes, rales or rhonchi. No dullness to percussion. No retractions or accessory muscle use. ABDOMEN: Positive bowel sounds x 4. Normal tympanic percussion. The patient does complain of tenderness in the right lower quadrant and right flank. Otherwise, the abdomen was soft, nontender, without masses or organomegaly. Martin sign negative. No guarding or rebound tenderness. MUSCULOSKELETAL: No muscle atrophy, erythema, or edema noted. Full range of motion without joint tenderness in all extremities. No tenderness to palpation. Normal gait. Strength 5/5 throughout. NEURO: Patient was alert and oriented to person place and time. Normal sensation to light and sharp touch. Deep tendon reflexes 2+ throughout. No focal neurological deficits. RADIOLOGY: PELVIC COMPLETE NON OB CLINICAL HISTORY: Right flank pain/Right ovarian cyst on CT at PAIN COMPARISON STUDY: 09/26/2015 FINDINGS: The uterus measured 8.0 cm. The endometrial stripe measured 12 mm with a trace amount central canal fluid. The right ovary measured 7 x 6 cm with normal vascular flow. This dimension include a 6 x 7 cm septated cyst. The left ovary measured 2.8 cm maximum dimension with normal vascular flow. There is no ultrasonographic evidence of ovarian torsion. It should be noted that ovarian torsion can be present with normal Doppler ultrasonographic findings. There was no evidence of pathologic free pelvic fluid. IMPRESSION: 1 7 x 6 cm septated right ovarian cyst. 2. Mild endometrial thickening at 12 mm which may indicate the secretory phase of menstrual cycle. 3. Remainder the study is unremarkable. 4. Monitoring of the dominant right ovarian septated cyst is suggested The above report was generated using voice recognition software. It may contain grammatical, syntax or spelling errors. Electronically signed by: Arie Martinez M.D. 01/14/2017 5:35 PM Dictated Date/Time: 01/14/2017 5:33 PM RENAL ULTRASOUND CLINICAL HISTORY: Right flank pain/pressure, dysuria. COMPARISON STUDY: Renal ultrasound November 13, [address] of the abdomen and pelvis February 06, 2016. TECHNIQUE: Sonography of the kidneys and the urinary bladder was performed. FINDINGS: The right kidney measures 10.6 cm in maximal dimension and the left measures 11.1 cm. There is no hydronephrosis. No calculi or masses are identified by sonography. No bladder abnormality is identified by sonography. IMPRESSION: Normal sonographic appearance of the kidneys. No hydronephrosis. Electronically signed by: Shaan Cortez M.D. 01/14/2017 5:31 PM Dictated Date/Time: 01/14/2017 5:29 PM EMERGENCY DEPARTMENT COURSE: The patient was seen and evaluated as above. Patient was given 60 mg Toradol IM. Urinalysis did show mild bacteria, white blood cells, and moderate blood. Ultrasound of the pelvis including retroperitoneal ultrasound was performed and revealed the 6 cm right ovarian cyst, but no other abnormalities. I do feel that the patient's symptoms are related to an early urinary tract infection, which could be why her urinalysis does not reveal any significant abnormalities at this time. I discussed all these findings with the patient, which is when she told me that she is currently on 3 antibiotics for a dental infection. I did consult with the patient's pharmacy in [place], and was advised that the only antibiotic they had from the oral surgeon in [place] was clindamycin 150 mg to be taken 4 times daily. They state this was just refilled 2 days ago. They state the last prescription for penicillin was the beginning of November and was for a 7 day course, and states the last prescription for amoxicillin that they felt was in January of last year. I discussed this with the patient, and advised her that there is no reason for her to be taking all 3 of the antibiotics she is currently taking, and advised her that she is currently taking them incorrectly. I encouraged the patient to take the clindamycin 4 times daily as prescribed and discontinue all other antibiotics. I did obtain records from [facility] due to recent CT scan. She was seen on 01/10 for painful urination and urgency, associated with RLQ abdominal pain. While in the emergency department, the patient was given morphine for pain management. Her labs were unremarkable, and urinalysis revealed only a small amount of ketones and trace blood. CT scan showed only a single simple right ovarian cyst which was not ruptured. This measured 6 cm. There was no surrounding inflammatory change. There were no kidney stones noted. The patient was discharged home with a prescription for Vicodin and was encouraged to follow up with her PCP today. The patient states she does not have a PCP, but does have a line prep cook. She has not scheduled an appointment. The patient will be started on Bactrim to cover for her urinary tract infection symptoms. She was encouraged to take this medication in addition to the clindamycin. Advised her to use Tylenol and/or Motrin to help with pain. She was encouraged to follow up this week outpatient with her line prep cook regarding follow-up and management of the ovarian cyst. Discharge instructions were reviewed and the patient was discharged home in good condition. I did review PDMP due to patient's complaints of pain and visit to several hospitals and providers in the past few days. The patient does have multiple prescriptions for narcotics from multiple providers, which were all filled at multiple different pharmacies over the past year. I am slightly concerned for possible drug-seeking behavior. The patient will not receive narcotics prescription today. I attest that I have personally reviewed the patient's current medication list. Patient was found to have normal blood pressure on screening and does not require follow-up. DIFFERENTIAL DIAGNOSIS: Urinary tract infection, hydronephrosis, pyelonephritis , nephrolithiasis, ovarian cyst, ovarian torsion, abscess, malignancy, and others DIAGNOSIS: Dysuria, ovarian cyst Problem List Medical Problems: (1) Acute liver failure Status: Resolved (2) BREECH PRESENTAT-DELIVER Status: Resolved (3) Deliver-Single Liveborn Status: Resolved (4) DENTAL DISORDER NOS Status: Resolved (5) FEM PELV INFLAM DIS NOS Status: Resolved (6) Hepatitis C Status: Chronic (7) Prev Delivry W/ Or W/O Ment Antepart Cond Status: Resolved Surgical Problems: (1) Hx of cholecystectomy Status: Chronic Current/Historical Medications Scheduled Sulfa/Trimethoprim (Bactrim Ds 800MG/160MG), 1 TAB PO BID Allergies Coded Allergies: Tramadol (Verified Adverse Reaction, Intermediate, HEADACHE-MIGRAINES, 12/21/16) Vital Signs Date Time Temp Pulse Resp B/P (MAP) Pulse Ox O2 Delivery O2 Flow Rate FiO2 01/14/17 17:37 65 18 89/62 98 Room Air 01/14/17 15:25 36.8 103 20 123/87 99 Room Air Laboratory Results Test 01/14/17 16:15 Urine Color YELLOW Urine Appearance CLEAR (CLEAR) Urine pH 8.0 (4.5-7.5) Urine Specific Raven 1.009 (1.000-1.030) Urine Protein NEG (NEG) Urine Glucose (UA) NEG (NEG) Urine Ketones NEG (NEG) Urine Occult Blood 3+ (NEG) Urine Nitrite NEG (NEG) Urine Bilirubin NEG (NEG) Urine Urobilinogen NEG (NEG) Urine Leukocyte Esterase NEG (NEG) Urine WBC (Auto) 5-10 /hpf (0-5) Urine RBC (Auto) 0-4 /hpf (0-4) Urine Hyaline Casts (Auto) 1-5 /lpf (0-5) Urine Epithelial Cells (Auto) >30 /lpf (0-5) Urine Bacteria (Auto) 1+ (NEG) Urine Test NEG (NEG) Medications Administered Medications (Trade) Dose Ordered Sig/Aury Route Start Time Stop Time Status Last Admin Dose Admin Ketorolac Tromethamine (Toradol Inj) 60 mg NOW STAT IM 01/14/17 16:19 01/14/17 16:20 DC 01/14/17 16:30 60 MG Departure Information Impression Primary Impression: Dysuria Dispostion Home / Self-Care Condition GOOD Prescriptions Sulfa/Trimethoprim (Bactrim Ds 800MG/160MG) Tab 1 TAB PO BID for 7 Days, #14 TAB Prov: Pam Malone, RON 01/14/17 Referrals No Doctor, Assigned (PCP) Patient Instructions ED Cyst Ovarian, ED UTI Cystitis Female, My [facility] Additional Instructions You have been treated in the Emergency Department for a Urinary Tract Infection (UTI). You have been prescribed Bactrim to be taken twice daily for 7 days. This is an antibiotic. All antibiotics have the potential to cause diarrhea. Stop this medication and contact a medical provider if you were to develop any significant adverse side effects including: wheezing, shortness of breath, passing out, vomiting, or a diffuse rash. Always take antibiotics as directed and COMPLETE the ENTIRE course regardless of the improvement of your symptoms. As discussed, for your dental infection, you should only be taking one antibiotic. It appears that your oral surgeon prescribed clindamycin to be taken 4 times daily. Please only take this medication in addition to the Bactrim which I have prescribed for your urinary tract infection. Please discontinue penicillin and amoxicillin which you were also on. Drink plenty of water and stay well hydrated. As with any trip to the Emergency Department, you should follow-up with your Primary Care Provider/Office Communication Professor from today's visit. I do recommend you follow up with your line prep cook this week regarding the ovarian cyst and urinary tract infection symptoms. Return to the emergency department if your symptoms persist despite treatment plan outlined above or if the following symptoms occur: increased fevers, chills , low back pain, nausea/vomiting, or blood in your urine.
--- NOTE | 2017-01-14 17:32 | DIAGNOSTIC IMAGING REPORT ---
RENAL ULTRASOUND CLINICAL HISTORY: Right flank pain/pressure, dysuria. COMPARISON STUDY: Renal ultrasound November 13, [address] of the abdomen and pelvis February 06, 2016. TECHNIQUE: Sonography of the kidneys and the urinary bladder was performed. FINDINGS: The right kidney measures 10.6 cm in maximal dimension and the left measures 11.1 cm. There is no hydronephrosis. No calculi or masses are identified by sonography. No bladder abnormality is identified by sonography. IMPRESSION: Normal sonographic appearance of the kidneys. No hydronephrosis. Electronically signed by: Shaan Cortez M.D. 01/14/2017 5:31 PM Dictated Date/Time: 01/14/2017 5:29 PM
[2017-01-14 17:37] VITALS: BP 89/62; PULSE 65; O2SAT 98
--- NOTE | 2017-01-14 17:37 | DIAGNOSTIC IMAGING REPORT ---
PELVIC COMPLETE NON OB CLINICAL HISTORY: Right flank pain/Right ovarian cyst on CT at [facility] PAIN COMPARISON STUDY: 09/26/2015 FINDINGS: The uterus measured 8.0 cm. The endometrial stripe measured 12 mm with a trace amount central canal fluid. The right ovary measured 7 x 6 cm with normal vascular flow. This dimension include a 6 x 7 cm septated cyst. The left ovary measured 2.8 cm maximum dimension with normal vascular flow. There is no ultrasonographic evidence of ovarian torsion. It should be noted that ovarian torsion can be present with normal Doppler ultrasonographic findings. There was no evidence of pathologic free pelvic fluid. IMPRESSION: 1 7 x 6 cm septated right ovarian cyst. 2. Mild endometrial thickening at 12 mm which may indicate the secretory phase of menstrual cycle. 3. Remainder the study is unremarkable. 4. Monitoring of the dominant right ovarian septated cyst is suggested The above report was generated using voice recognition software. It may contain grammatical, syntax or spelling errors. Electronically signed by: Arie Martinez M.D. 01/14/2017 5:35 PM Dictated Date/Time: 01/14/2017 5:33 PM
[2017-01-14] MEDS ORDERED: SULF800T23 PO (18:05)
== END 2017-01-14 18:19 | disposition home or self-care (01) ==
LOC: C.EDB 15:16 → C.EDD 18:19
DX: R30.0 Dysuria (principal)

== ENCOUNTER → 2017-02-11 | Outpatient (CLI) | payer OTHER | END | disposition home or self-care (01) | LOC: C.LAB1850 14:43 | PROVIDERS: ATTEND Obstetrics & Gynecology | DX: N83.299 Other ovarian cyst, unspecified side (principal) ==

== ENCOUNTER → 2017-02-14 | Outpatient (CLI) | payer OTHER ==
[~2017-02-14] MED LIST changes: +HYDR-5688 PO; -OXYC-57 PO
== END | disposition home or self-care (01) ==
LOC: C.PATHSPEC 15:34
PROVIDERS: ATTEND Obstetrics & Gynecology
DX: N92.0 Excessive and frequent menstruation with regular cycle (principal)

== ENCOUNTER 2017-02-16 15:07 | Emergency (ER) | payer OTHER ==
[~2017-02-16] VITALS: Ht 157.5 cm; Wt 63.6 kg
[2017-02-16 15:10] VITALS: TEMP 36.6; Ht 157.5 cm; Wt 63.6 kg
[2017-02-16] MEDS ORDERED: SODIUM CHLORIDE 0.9% 1000ML 1,000 ML IV STA (15:29)
[2017-02-16] MEDS ORDERED: MoRPHine SULFATE 10 MG/ML CARP/VIAL IV STA (15:29)
[2017-02-16] MEDS ORDERED: ONDANSETRON INJ 2 MG/ML 2 ML VIAL IV STA (15:29)
[2017-02-16 15:58] LABS: URINE APPEARANCE CLEAR (CLEAR); URINE BILIRUBIN NEG (NEG); URINE COLOR ORANGE; URINE EPITHELIAL CELL AUTO >30 /lpf (0-5); URINE NITRITE NEG (NEG); URINE PH 7.5 (4.5-7.5); URINE SPECIFIC GRAVITY 1.014 (1.000-1.030); UROBILINOGEN NEG (NEG)
[2017-02-16 15:59] LABS: MANUAL MICROSCOPIC REQUIRED? NO; REVIEW REQ? NO
[2017-02-16 16:01] VITALS: O2SAT 99
[2017-02-16 16:15] LABS: BASO % 0.5 %; BASO ABS # 0.04 K/uL (0-0.2); COMPLETE YES; EOS % 1.2 %; HEMATOCRIT 40.6 % (37-47); IG% 0.1 %; LYMPH % 32.2 %; LYMPH ABS # 2.41 K/uL (1.2-3.4); MEAN CELL VOLUME 81.9 fL (80-100); MEAN CORPUSCULAR HEMOGLOBIN 26.6 pg (25-34); MEAN CORPUSCULAR HGB CONC 32.5 g/dl (32-36); MEAN PLATELET VOLUME 11.3 fL (7.4-10.4); MONO % 5.9 %; NEUT % 60.1 %; PLATELET COUNT 267 K/uL (130-400); RED BLOOD COUNT 4.96 M/uL (4.2-5.4); WHITE BLOOD COUNT 7.48 K/uL (4.8-10.8)
[2017-02-16 16:27] LABS: BUN/CREATININE RATIO 11.6 (10-20); CALCIUM 8.9 mg/dl (8.5-10.1); CREATININE 0.61 mg/dl (0.60-1.20); POTASSIUM 3.7 mmol/L (3.5-5.1)
[2017-02-16 16:29] LABS: ALB/GLOB RATIO 0.8 (0.9-2)
--- NOTE | 2017-02-16 17:14 | DIAGNOSTIC IMAGING REPORT ---
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 FINDINGS: TRANSABDOMINAL: Anteflexed uterus measures 8.0 x 4.2 x 5.2 cm. Endometrium measures 5 mm. Large cystic structure of the right ovary redemonstrated. Arterial inflow to the bilateral ovaries is documented. TRANSVAGINAL: Uterus measures 8.5 x 4.0 x 5.0 cm. No myometrial mass lesion identified. Endometrium measures 0.6 cm and is homogeneous. scar noted. Nabothian cysts are seen. Mild amount of free pelvic fluid is noted within the cul-de-sac and adjacent to the left ovary. The left ovary measures 3.4 x 2.2 x 3.4 cm and is unremarkable with normal-appearing follicles and arterial inflow documented. Large septated cystic structure of the right adnexa is noted measuring up to 7.1 x 4.6 x 7.8 cm, previously measuring 6 x 7 cm. Right ovary measures 7.1 x 5.4 x 8.7 cm demonstrates arterial inflow. IMPRESSION: 1. Large septated cyst of the right ovary redemonstrated measuring up to 7.8 cm which appears stable from comparison considering difference in measurement technique. Follow-up study in 2 menstrual cycles is recommended to document resolution. 2. Unremarkable sonographic appearance of the left ovary. No evidence of ovarian torsion. 3. Unremarkable sonographic appearance of the uterus and endometrium. 4. Trace free pelvic fluid, likely physiologic. The above report was generated using voice recognition software. It may contain grammatical, syntax or spelling errors. Electronically signed by: Brandon Bowie M.D. 02/16/2017 5:13 PM Dictated Date/Time: 02/16/2017 5:08 PM
[2017-02-16 17:27] LABS: INR 1.1 (0.9-1.1); PROTHROMBIN TIME (PATIENT) 11.8 SECONDS (9.0-12.0)
[2017-02-16] MEDS ORDERED: MoRPHine SULFATE 4 MG/ML 1 ML CARP\\VIAL IV STA (18:06)
--- NOTE | 2017-02-16 18:07 | EMERGENCY ROOM VISIT NOTE ---
History First contact with patient: 15:14 Chief Complaint: VAGINAL BLEEDING Stated Complaint: MASSIVE ABD PAIN, BLEEDING, NAUSEA History of Present Illness The patient is a 31 year old female who presents to the Emergency Room with complaints of right sided abdominal pain and heavy vaginal bleeding for the past 3 days. Patient has a known large right ovarian cyst that she has had for several months, she states she is supposed to have a hysterectomy done to remove the cyst and her uterus for abnormal uterine bleeding, but this has not yet been scheduled. She states that she had a colposcopy procedure by her cafe associate 3 days ago, ever since that time she has had vaginal bleeding and increased right-sided abdominal pain. She states her last menstrual period was 2 weeks ago, she is not due for her period yet. She states that she has been having bright red bleeding with some clots, but no heavy bleeding, she has been changing her pad 3-4 times a day. She describes her abdominal pain as constant , sharp and cramping, worse with certain positions and movement, better with rest, 8/10. She has been taking ibuprofen for the pain with minimal relief. She denies any symptoms of fevers, chills, headache, chest pain, shortness of breath, back pain, vomiting, diarrhea, dysuria or urinary frequency, rash. Review of Systems A complete 10 point review of systems was reviewed with the patient with pertinent positives and negatives as per history of present illness. All else were negative. Past Medical/Surgical History Medical Problems: (1) Acute liver failure (2) BREECH PRESENTAT-DELIVER (3) Deliver-Single Liveborn (4) DENTAL DISORDER NOS (5) FEM PELV INFLAM DIS NOS (6) Hepatitis C (7) Prev Delivry W/ Or W/O Ment Antepart Cond Surgical Problems: (1) Hx of cholecystectomy Family History FH: HTN (hypertension) FH: cancer FH: diabetes mellitus FH: seizures Heart disease Social History Smoking Status: Current Every Day Smoker Alcohol Use: none Drug Use: none Marital Status: single Housing Status: lives with family Occupation Status: employed Current/Historical Medications Scheduled PRN Hydrocodone/Acetaminophen 5MG/325MG ([place] 5MG/325MG), 1 TABLET PO Q6H PRN for Pain Allergies Reviewed in chart Physical Exam Vital Signs Date Time Temp Pulse Resp B/P (MAP) Pulse Ox O2 Delivery O2 Flow Rate FiO2 02/16/17 19:12 91 105/67 98 02/16/17 17:28 81 116/74 100 Room Air 02/16/17 16:07 77 02/16/17 16:01 99 Room Air 02/16/17 15:10 36.6 123 20 131/86 95 Room Air Physical Exam CONSTITUTIONAL: No acute distress. Mildly dehydrated, but otherwise well appearing and well nourished. Alert and oriented X 4 with normal affect. HEENT: Normocephalic, atraumatic. Pupils equal, round and reactive to light, EOMI. TMs normal. Pharynx normal. Tacky mucous membranes NECK: Supple, full active range of motion without discomfort. RESPIRATORY: Clear to auscultation bilaterally with no wheezing, crackles, rhonchi or stridor. Equal expansion bilaterally. CARDIOVASCULAR: Regular rate and rhythm with no murmurs, rubs or gallops. Normal peripheral perfusion. No edema. GASTROINTESTINAL: Moderately tender in the right lower quadrant and suprapubic area, no guarding or rebound tenderness. Soft, nondistended. Bowel sounds present in all quadrants. GENITOURINARY: VULVA: No ulcers, vesicles or atrophy. VAGINA: Clear discharge , no foul odor, small amount of dark blood and small clots. CERVIX: Closed, pink, nontender, no cervical motion tenderness, no purulent discharge. UTERUS: Normal size, nontender. ADNEXA: Right adnexal tenderness and fullness. No masses or tenderness of the left adnexa. A nurse was present as a med aide during the examination. MUSCULOSKELETAL: Full range of motion of all joints without discomfort. INTEGUMENTARY: No rash or other significant dermatologic conditions noted. NEUROLOGIC: Cranial nerves II-XII grossly intact. No focal neurologic deficits noted. Medical Decision & Procedures Laboratory Results 02/16/17 15:52 Red Blood Count 4.96, Mean Corpuscular Volume 81.9, Mean Corpuscular Hemoglobin 26.6, Mean Corpuscular Hemoglobin Concent 32.5, Mean Platelet Volume 11.3, Neutrophils (%) (Auto) 60.1, Lymphocytes (%) (Auto) 32.2, Monocytes (%) (Auto) 5.9, Eosinophils (%) (Auto) 1.2, Basophils (%) (Auto) 0.5, Neutrophils # (Auto) 4.49, Lymphocytes # (Auto) 2.41, Monocytes # (Auto) 0.44, Eosinophils # (Auto) 0.09, Basophils # (Auto) 0.04 02/16/17 15:52 Test 02/16/17 15:40 02/16/17 15:52 02/16/17 17:08 Urine Color ORANGE Urine Appearance CLEAR (CLEAR) Urine pH 7.5 (4.5-7.5) Urine Specific [place] 1.014 (1.000-1.030) Urine Protein NEG (NEG) Urine Glucose (UA) NEG (NEG) Urine Ketones NEG (NEG) Urine Occult Blood 3+ (NEG) Urine Nitrite NEG (NEG) Urine Bilirubin NEG (NEG) Urine Urobilinogen NEG (NEG) Urine Leukocyte Esterase NEG (NEG) Urine WBC (Auto) 1-5 /hpf (0-5) Urine RBC (Auto) 0-4 /hpf (0-4) Urine Hyaline Casts (Auto) 0 /lpf (0-5) Urine Epithelial Cells (Auto) >30 /lpf (0-5) Urine Bacteria (Auto) NEG (NEG) Urine Test NEG (NEG) White Blood Count 7.48 K/uL (4.8-10.8) Red Blood Count 4.96 M/uL (4.2-5.4) Hemoglobin 13.2 g/dL (12.0-16.0) Hematocrit 40.6 % (37-47) Mean Corpuscular Volume 81.9 fL (80-100) Mean Corpuscular Hemoglobin 26.6 pg (25-34) Mean Corpuscular Hemoglobin Concent 32.5 g/dl (32-36) Platelet Count 267 K/uL (130-400) Mean Platelet Volume 11.3 fL (7.4-10.4) Neutrophils (%) (Auto) 60.1 % Lymphocytes (%) (Auto) 32.2 % Monocytes (%) (Auto) 5.9 % Eosinophils (%) (Auto) 1.2 % Basophils (%) (Auto) 0.5 % Neutrophils # (Auto) 4.49 K/uL (1.4-6.5) Lymphocytes # (Auto) 2.41 K/uL (1.2-3.4) Monocytes # (Auto) 0.44 K/uL (0.11-0.59) Eosinophils # (Auto) 0.09 K/uL (0-0.5) Basophils # (Auto) 0.04 K/uL (0-0.2) RDW Standard Deviation 43.5 fL (36.4-46.3) RDW Coefficient of Variation 14.6 % (11.5-14.5) Immature Granulocyte % (Auto) 0.1 % Immature Granulocyte # (Auto) 0.01 K/uL (0.00-0.02) Anion Gap 7.0 mmol/L (3-11) Est Creatinine Clear Calc Drug Dose 114.9 ml/min Estimated GFR () 138.1 Estimated GFR (Non- 119.1 BUN/Creatinine Ratio 11.6 (10-20) Calcium Level 8.9 mg/dl (8.5-10.1) Total Bilirubin 0.3 mg/dl (0.2-1) Aspartate Amino Transf (AST/SGOT) 40 U/L (15-37) Alanine Aminotransferase (ALT/SGPT) 110 U/L (12-78) Alkaline Phosphatase 70 U/L (45-117) Total Protein 8.3 gm/dl (6.4-8.2) Albumin 3.7 gm/dl (3.4-5.0) Globulin 4.6 gm/dl (2.5-4.0) Albumin/Globulin Ratio 0.8 (0.9-2) Prothrombin Time 11.8 SECONDS (9.0-12.0) Prothromb Time International Ratio 1.1 (0.9-1.1) Activated Partial Thromboplast Time 26.6 SECONDS (21.0-31.0) Partial Thromboplastin Ratio 1.0 Medications Administered Medications (Trade) Dose Ordered Sig/Aury Route Start Time Stop Time Status Last Admin Dose Admin Ondansetron HCl (Zofran Inj) 4 mg NOW STAT IV 02/16/17 15:29 02/16/17 15:35 DC 02/16/17 15:59 4 MG Sodium Chloride 1,000 ml @ 999 mls/hr Q1H1M STAT IV 02/16/17 15:29 02/16/17 16:29 DC 02/16/17 15:29 999 MLS/HR Morphine Sulfate (MoRPHine SULFATE INJ) 4 mg NOW STAT IV 02/16/17 15:29 02/16/17 15:35 DC 02/16/17 15:59 4 MG Morphine Sulfate (MoRPHine SULFATE INJ) 4 mg NOW STAT IV 02/16/17 18:06 02/16/17 18:07 DC 02/16/17 18:17 4 MG Acetaminophen/ Hydrocodone Bitart ([place] 5/325mg Home Pack) 1 homepack UD ONCE PO 02/16/17 19:00 02/16/17 19:01 DC 02/16/17 19:07 1 HOMEPACK Medical Decision CC: Patient presenting with complaint of pelvic pain and vaginal bleeding Interpretation of Labs: No leukocytosis, no anemia, no significant electrolyte abnormality, normal renal function, normal liver enzymes. UA negative for infection, urine negative. Differential Diagnosis: Includes, but not limited to dysfunctional uterine bleeding, ovarian cyst, ovarian torsion, PID, infection secondary to colposcopy , anemia, chronic pain, among others. Medication Reconciliation: I attest that I have personally reviewed the patient' s current medication list. Vital signs review: I reviewed the patient's vital signs and interpret them as follows: T: Afebrile; BP: Normotensive; HR: Tachycardic; RR: Within normal limits; Pulse Ox: Within normal limits on room air. Blood pressure screening: The patient was found to have normal blood pressure on screening and does not require follow-up for repeat blood pressure check. Summary: Patient was evaluated at bedside, history and physical exam performed. Patient is alert and oriented, no acute distress but does appear uncomfortable and in pain. Patient is tender in the right lower abdomen and suprapubic area. Orders were placed at bedside for labs, UA and , IV fluids for hydration, IV morphine and Zofran for pain and nausea, pelvic ultrasound to evaluate for ovarian torsion and other abnormalities. Patient discussed with Dr. Luis, who agrees with my assessment and plan. Labs reviewed as above, no significant abnormalities. She is not anemic. Pelvic exam is unremarkable, no active bleeding, no cervical motion tenderness or purulent discharge to suggest infection. Pelvic ultrasound appears largely unchanged from previous imaging. I spoke on the phone with Dr. Grimaldo, FAMILY SUPPORT WORKER, and discussed all lab and ultrasound results. She will arrange for the patient to follow up closely this week. Patient reassessed multiple times throughout ED stay, the patient reports improved pain and nausea. Tachycardia improved after IV fluids and pain management. Patient was updated on all results and plan for discharge home, she was also encouraged to keep her follow-up with FAMILY SUPPORT WORKER. Patient was given strict return precautions should her symptoms worsen, she verbalized understanding. She was provided with a small prescription of Pres[place] for pain management, and was advised to follow-up with her PCP for any further pain management needs. The patient was discharged home in stable condition and ambulatory. Impression Primary Impression: Vaginal bleeding Additional Impression: Right ovarian cyst Departure Information Dispostion Home / Self-Care Condition GOOD Prescriptions Hydrocodone/Acetaminophen 5MG/325MG ([place] 5MG/325MG) Tab 1 TABLET PO Q6H Y for Pain, #10 TAB For Initial Treatment Prov: Jasmyne George CRNP 02/16/17 Referrals No Doctor, Assigned (PCP) Karis Grimaldo M.D. Patient Instructions ED Bleed Irregular Vaginal, My [facility] Additional Instructions Please keep your follow-up with your OB office as scheduled for your repeat ultrasound this week. They will call you to set up any additional follow-up appointments. You may take ibuprofen 600 mg every 6-8 hours as needed for pain. Do not take more than 2400 mg in a 24 hour period. For severe pain, you may take the [place], one tablet every 6 hours. This is a narcotic, do not drive, operate machinery, or drink alcohol while you are taking this medication. This is a temporary medication to help manage your acute pain, and will not be continued by your FAMILY SUPPORT WORKER provider. Please return to the ER for worsening symptoms, including sudden severe or worsening pain, persistent heavy bleeding (soaking through 2 or more pads/ tampons per hour), fever/chills, severe dizziness or passing out, or any other concerns. Work Instructions Return To Work: 1 day Problem Qualifiers
[2017-02-16] MEDS ORDERED: HYDR-5688 PO (18:59)
[2017-02-16] MEDS ORDERED: NORCO 5/325MG HOME PACK PO ONE (19:00)
[2017-02-16 19:12] VITALS: BP 105/67; PULSE 91; O2SAT 98
== END 2017-02-16 19:14 | disposition home or self-care (01) ==
LOC: C.EDB 15:08 → C.EDC 19:14
DX: N93.9 Abnormal uterine and vaginal bleeding, unspecified (principal); N83.201 Unspecified ovarian cyst, right side; K72.00 Acute and subacute hepatic failure without coma; B19.20 Unspecified viral hepatitis C without hepatic coma; Z82.49 Family history of ischemic heart disease and other diseases of the circulatory system; Z80.9 Family history of malignant neoplasm, unspecified; Z83.3 Family history of diabetes mellitus; F17.210 Nicotine dependence, cigarettes, uncomplicated

== ENCOUNTER → 2017-02-19 | Outpatient (CLI) | payer OTHER ==
[~2017-02-19] MED LIST changes: +ACET500T58 PO; +AMOX500C3 PO; +AMX500 PO; +GABA-113 PO; +MTR500 PO; +OXYC1TAB3 PO; +RXC/5 PO; +RXC5 PO
== END | disposition home or self-care (01) ==
LOC: C.LAB 13:29
PROVIDERS: ATTEND Urology
DX: R31.0 Gross hematuria (principal)

== ENCOUNTER → 2017-02-22 | Outpatient (CLI) | payer OTHER ==
[~2017-02-22] MED LIST changes: -ACET500T58 PO; -AMOX500C3 PO; -GABA-113 PO; -MTR500 PO; +OPTIRAY 320 IV PRN; -RXC/5 PO; -RXC5 PO
--- NOTE | 2017-02-22 11:54 | DIAGNOSTIC IMAGING REPORT ---
CT ABD/PELVIS COMBO CLINICAL HISTORY: R31.0 gross hematuria COMPARISON STUDY: None. TECHNIQUE: Unenhanced images were obtained through the abdomen and pelvis. The patient was injected with 50 cc Optiray 320. After 5 minute delay, the patient was reimaged in a dynamic helical fashion during the additional administration of 69 cc of Optiray 320. A dose lowering technique was utilized adhering to the principles of ALARA. CT DOSE: 810.06 mGycm FINDINGS: Lower chest: The heart is normal in size and configuration, without pericardial effusion. The lung bases and pleural spaces are clear. Liver: The contrast-enhanced liver is normal in size, contour, and attenuation. There is no intrahepatic biliary ductal dilatation. The hepatic veins and portal veins are patent. Gallbladder: Surgically absent Spleen: Normal in size and attenuation. Pancreas: Unremarkable. Adrenal glands: Unremarkable. Kidneys: No renal, ureteral, or bladder calculi are visualized. No renal masses are visualized. No collecting system lesions are visualized. 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 2 ureters can be followed down to near the level of the ureterovesical junction. I suspect but am not certain that the 2 ureters join distally. There is no hydronephrosis. No ureteral filling defects are visualized. Bowel: There are no transition zones indicate bowel obstruction. There is no acute diverticulitis. The appendix appears normal. Peritoneum: There is trace free fluid likely physiologic. There is no free intraperitoneal air. Vasculature: The abdominal aorta is normal in course and caliber. Adenopathy: None. Pelvic viscera: There is a large septated 9 cm cystic pelvic mass located anterior to the uterus in the midline. This likely originates from the right ovary. This was described on a prior ultrasound study dated February 16, 2017. This was not present on the prior CT scan dated 02/06/2016. Normal appearing left ovarian follicles are visualized. Skeletal structures: No destructive osseous lesions are seen. IMPRESSION: 1. No renal, ureteral, or bladder calculi identified 2. No renal masses identified 3. 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 I suspect but am not certain that the 2 ureters join distally. 4. No uroepithelial lesions are visualized 5. Large septated cystic pelvic mass, likely of right ovarian origin. This measures 9 cm in maximal diameter. Gynecological follow-up is recommended. Electronically signed by: Dale Araujo M.D. 02/22/2017 11:52 AM Dictated Date/Time: 02/22/2017 11:42 AM
== END | disposition home or self-care (01) ==
LOC: C.CTS 10:50
PROVIDERS: ATTEND Urology
DX: R31.0 Gross hematuria (principal); R93.8 Abnormal findings on diagnostic imaging of other specified body structures; R19.09 Other intra-abdominal and pelvic swelling, mass and lump

== ENCOUNTER 2017-02-27 12:23 | Emergency (ER) | payer OTHER ==
[~2017-02-27] VITALS: Ht 157.5 cm; Wt 63.5 kg
[~2017-02-27 12:23] MED LIST changes: -AMX500 PO; -OPTIRAY 320 IV PRN; -OXYC1TAB3 PO
[2017-02-27 12:37] VITALS: TEMP 36.9; Ht 157.5 cm; Wt 63.5 kg
[2017-02-27] MEDS ORDERED: AMOXICILLIN 250 MG CAP PO STA (12:56)
[2017-02-27] MEDS ORDERED: LIDOCAINE/EPINEPHRINE 1% 20 ML VIAL INFIL STA (12:56)
--- NOTE | 2017-02-27 13:31 | EMERGENCY ROOM VISIT NOTE ---
ED Visit Note First contact with patient: 12:41 Chief Complaint: "Tooth went through lip". History of Present Illness: This patient is a 31-year-old female who presents to the Emergency Department via private vehicle accompanied by friend for evaluation of their left facial laceration. Patient sustained the laceration while ascending a flight of steps and tripped over her socks following for striking her face off of the steps. They report a moderate amount of bleeding initially. They report no loss of consciousness. They deny any headache, visual disturbance, nausea, vomiting, or neck pain. \\Patient rates her current discomfort as a 6/10. She is unsure of her tetanus status but declines immunization today. Medications: As noted below Allergies: Tramadol PMH: Liver failure SHx: Patient lives locally. ROS: All pertinent positive and negative review of systems are appropriately documented in the History of Present Illness. Physical Exam: VITAL SIGNS - Vital signs and nursing notes were reviewed. Stable. GENERAL -31-year-old female appearing her stated age. Communicates well with provider and answers questions appropriately. SKIN - There is a 0.75 cm laceration noted to the left external upper lip as well as a 2 cm intraoral laceration is communicating with this. The edges gape apart with traction. There is minimal active bleeding appreciated. No deep structures including vessels, musculature, or bony structures are appreciated. No retained tooth. HEAD - Normocephalic. No Lincoln's Sign or Raccoon's Eyes. EYES -no hyphema. EARS - No deformities of external structures noted on gross examination bilaterally. NOSE - Midline and without cyanosis. No epistaxis or clear watery discharge noted. S MOUTH/OROPHARYNX - Without perioral cyanosis. There is a dental fracture of tooth #10 the left lateral cuspid. This appears to have pierced the skin treating the communicate laceration. ED Course: Patient was seen and evaluated by myself. Patient had no focal neurological deficits. Patient's exam is otherwise unremarkable. Patient reports no headaches , visual disturbances, nausea, vomiting, or over-lethargy. Risks and benefits of performing primary wound closure versus no repair were discussed with the patient who verbalizes understanding. Verbal consent was obtained prior to performing the procedure. 4 cc of 1% buffered lidocaine with epinephrine was used to anesthetize the intraoral and external facial laceration. The wound was cleansed and prepped in the typical sterile fashion utilizing normal saline and Betadine. The wound was sterilely draped. Once proper anesthetization was established, the wound was further examined and demonstrated no deep involvement and no retained tooth product. The wound was copiously irrigated with normal saline and Betadine. The wound was closed using one simple, 6-0 nylon suture externally and 2, 6-0 Vicryl sutures with the wound edges being well approximated. She'll be given amoxicillin for infection prophylaxis secondary to the communicating laceration and dental fracture. She'll be given oxycodone for the pain associated with a dental fracture. She was also given wax to help with the exposed fractured tooth. Patient tolerated the procedure well. No complications were met. The wound was cleansed and dressed with a Bacitracin dressing. Patient educated on worrisome symptoms for return visit to the Emergency Department. Patient discharged to home in good condition. She is to follow with her dentist. IMPRESSION: Closed Head Injury In the evaluation and treatment of this patient, the following differential diagnoses were considered: Concussion, Contrecoup Injury, Brain Tumor, Depression, Encephalitis, Hypothyroidism, Meningitis, CVA, TIA, Migraine, Cluster Headache, Intracranial Abnormality, Intracranial Hemorrhage, Subdural Hematoma, Subarachnoid Hemorrhage, Hydrocephalus. Problem List Medical Problems: (1) Acute liver failure Status: Resolved (2) BREECH PRESENTAT-DELIVER Status: Resolved (3) Deliver-Single Liveborn Status: Resolved (4) DENTAL DISORDER NOS Status: Resolved (5) FEM PELV INFLAM DIS NOS Status: Resolved (6) Hepatitis C Status: Chronic (7) Prev Delivry W/ Or W/O Ment Antepart Cond Status: Resolved Surgical Problems: (1) Hx of cholecystectomy Status: Chronic Current/Historical Medications Scheduled Amoxicillin (Amoxicillin), 500 MG PO TID Scheduled PRN Oxycodone Ir (Roxicodone Ir), 1-2 TAB PO Q4H PRN for Pain Allergies Coded Allergies: Tramadol (Verified Adverse Reaction, Intermediate, HEADACHE-MIGRAINES, 12/21/16) Vital Signs Date Time Temp Pulse Resp B/P (MAP) Pulse Ox O2 Delivery O2 Flow Rate FiO2 02/27/17 13:59 87 127/75 99 02/27/17 12:37 36.9 91 20 111/70 100 Room Air Medications Administered Medications (Trade) Dose Ordered Sig/Aury Route Start Time Stop Time Status Last Admin Dose Admin Amoxicillin (Amoxil Cap) 500 mg NOW STAT PO 02/27/17 12:56 02/27/17 12:58 DC 02/27/17 13:08 500 MG Departure Information Impression Primary Impression: Facial laceration Dispostion Home / Self-Care Condition GOOD Prescriptions Oxycodone Ir (Roxicodone Ir) 5 Mg Tab 1-2 TAB PO Q4H Y for Pain, #15 TAB For Initial Treatment Prov: Bari Mcqueen PA-C 02/27/17 Amoxicillin (Amoxicillin) 500 Mg Cap 500 MG PO TID for 5 Days, #15 TABS Prov: Brai Mcqueen PA-C 02/27/17 Referrals No Doctor, Assigned (PCP) Patient Instructions My [facility] [address] Additional Instructions Discharge Instructions: You have received 1 sutures on your face that will need to be removed the other 2 will dissolve. These sutures are NOT dissolvable and WILL need to be removed by a health care provider in 6-7 days. You can return to the Emergency Department or contact your Primary Care Provider to have the sutures removed. Amoxicillin every 8 hours for infection prevention next tablet around 10 pm. Oxy IR for pain. NO driving while on this. Proper wound care is essential for adequate wound healing and infection prevention. You can shower and clean the wound with soap and water. Do not scour over the wound, pat dry with a towel. Do not submerse the wound (i.e. bathe or dish wash) until the sutures have been removed. You can use an antibiotic ointment with a dressing over the wound for the next 2-3 days. After this time you may leave the wound dry and open to the air. If crust develops over the wound you can use a Q-tip to apply a 1:1 peroxide:water solution to clean the wound. Look for signs of infection of the wound including: increased pain, swelling, foul discharge, streaking, or increased temperature. If any of these are noticed you should return to the Emergency Department for further assessment and treatment. As with any laceration you may have received nerve damage to the surrounding tissues. This damage may or may not be permanent. You should keep the area covered with sunscreen for the first 6 months to 1 year when at risk for exposure to help minimize scarring. You can also use scar reducing creams or Vitamin E oil to help minimize scarring. Please follow up with dentist for tooth Return to the emergency department if your symptoms worsen despite treatment course outlined above.
[2017-02-27] MEDS ORDERED: AMX500 PO (13:32)
[2017-02-27] MEDS ORDERED: OXYC1TAB3 PO (13:32)
[2017-02-27 13:59] VITALS: BP 127/75; PULSE 87; O2SAT 99
[2017-02-28] MEDS ORDERED: OXYC1TAB3 PO (13:48)
[2017-02-28] MEDS ORDERED: AMOX500C3 PO (13:48)
[2017-02-28] MEDS ORDERED: ACET500T58 PO (13:50)
== END 2017-02-27 13:45 | disposition home or self-care (01) ==
LOC: C.EDB 12:23 → C.EDD 13:45
DX: S01.511A Laceration without foreign body of lip, initial encounter (principal); S02.5XXA Fracture of tooth (traumatic), initial encounter for closed fracture; W10.9XXA Fall (on) (from) unspecified stairs and steps, initial encounter

== ENCOUNTER 2017-03-08 09:18 | Observation (INO) | payer OTHER ==
[2017-02-28 13:50] VITALS: BMI 25.0
--- NOTE | 2017-02-28 13:53 | PAT Medication Instructions ---
Service Date Feb 28, 2017. Current Home Medication List Acetaminophen (Acetaminophen), 1 TAB PO UD PRN for Pain Amoxicillin (Amoxil), 1 CAP PO TID Oxycodone Ir (Roxicodone Ir), 5 MG PO Q4 PRN for Pain Medication Instructions For Your Scheduled Surgery - Continue as directed: Amoxicillin (Amoxil), 1 CAP PO TID - Take the following medications the morning of surgery with a sip of water OTHERWISE NOTHING TO EAT OR DRINK AFTER MIDNIGHT: Acetaminophen (Acetaminophen), 1 TAB PO UD PRN for Pain (may take if needed up to 4 hours prior to surgery) Oxycodone Ir (Roxicodone Ir), 5 MG PO Q4 PRN for Pain (may take if needed up to 4 hours prior to surgery) Amoxicillin (Amoxil), 1 CAP PO TID (if still taking) - Take the following medications as scheduled the night before surgery: Acetaminophen (Acetaminophen), 1 TAB PO UD PRN for Pain Oxycodone Ir (Roxicodone Ir), 5 MG PO Q4 PRN for Pain Amoxicillin (Amoxil), 1 CAP PO TID (if still taking) If you have any questions please call us at [phone] or [phone] or [phone]
[2017-02-28 14:05] LABS: BASO % 0.2 %; BASO ABS # 0.02 K/uL (0-0.2); EOS % 1.1 %; EOS ABS # 0.09 K/uL (0-0.5); HEMATOCRIT 38.7 % (37-47); HEMOGLOBIN 12.7 g/dL (12.0-16.0); IG# 0.01 K/uL (0.00-0.02); LYMPH % 28.6 %; MEAN CELL VOLUME 80.6 fL (80-100); MEAN CORPUSCULAR HEMOGLOBIN 26.5 pg (25-34); MEAN CORPUSCULAR HGB CONC 32.8 g/dl (32-36); MEAN PLATELET VOLUME 10.8 fL (7.4-10.4); MONO % 8.1 %; MONO ABS # 0.65 K/uL (0.11-0.59); NEUT % 61.9 %; NEUT ABS # 4.97 K/uL (1.4-6.5); PLATELET COUNT 225 K/uL (130-400); RED CELL DISTRIBUTION WIDTH CV 14.5 % (11.5-14.5); RED CELL DISTRIBUTION WIDTH SD 42.6 fL (36.4-46.3); WHITE BLOOD COUNT 8.04 K/uL (4.8-10.8)
[~2017-03-08] VITALS: Ht 157.5 cm; Wt 63.9 kg
[~2017-03-08 09:18] MED LIST changes: +ACET500T58 PO; +AMOX500C3 PO; +ATROPINE SULFATE 0.1 MG/ML 5ML SYR IV PRN; +CEFAZOLIN 2000MG IV PUSH 10 ML IV SCH; +EpHEDrine SULFATE INJ 50 MG/ML AMP IV PRN; +FENTANYL CITRATE INJ 50 MCG/1 ML 2 ML VIAL IV PRN; -HYDR-5688 PO; +LACTATED RINGER'S 1000ML 1,000 ML IV SCH; +ONDANSETRON INJ 2 MG/ML 2 ML VIAL IV PRN; +OXYC-90 PO; +PROMETHAZINE HCL INJ 12.5 MG in SODIUM CHLORIDE 0.9% 50ML 50 ML IV PRN
[2017-03-08 09:48] VITALS: PULSE 74; TEMP 36.7; Ht 157.5 cm; Wt 63.9 kg
[2017-03-08] MEDS ORDERED: GABA-113 PO (10:12)
[2017-03-08] MEDS ORDERED: RXC/5 PO (11:12)
--- NOTE | 2017-03-08 11:14 | History & Physical Bridge Note ---
H&P Re-Evaluation Bridge Note: I have examined the patient, reviewed the History & Physical and in the interval since the performance of the History & Physical I have noted the following changes of clinical significance: No changes noted. I reviewed her pa pdmp reports. she claims that due to allergy to tylenol (due to history of liver failure) she has not filled the multiple about 50tabs of tylenol based narcotic that she has been prescribed. I will call ja[facility] pharmacy to confirm. We will give her small prescription of narcotic alone, oxycodone, given to her friend Asim Ojeda the prescription to fill in case of late discharge today.
[2017-03-08] MEDS ORDERED: MIDAZOLAM HCL 1 MG/ML 2ML VIAL ONE (11:43)
[2017-03-08] MEDS ORDERED: HYDROmorphone INJ 2 MG/ML SYR/VIAL ONE ×2 (11:43→13:57)
[2017-03-08] MEDS ORDERED: FENTANYL CITRATE INJ 50 MCG/1 ML 2 ML VIAL ONE ×4 (11:43→15:07)
[2017-03-08] MEDS ORDERED: METHYLENE BLUE 0.5% 10 ML VIAL ONE (12:46)
[2017-03-08] MEDS ORDERED: BUPIVACAINE 0.5 % 5 MG/1 ML MPF 30ML VIAL ONE (12:47)
[2017-03-08] MEDS ORDERED: KETAMINE HCL INJ 50 MG/ML 10 ML VIAL ONE (13:41)
[2017-03-08] MEDS ORDERED: LIDOCAINE HCL 2% 2 ML VIAL (20MG/ML) ONE (13:44)
[2017-03-08] MEDS ORDERED: NEOSTIGMINE METHYLSULFATE 5 MG/5 ML SYR ONE (13:44)
[2017-03-08] MEDS ORDERED: DEXAMETHASONE SOD INJ 4 MG/ML VIAL ONE (13:44)
[2017-03-08] MEDS ORDERED: ONDANSETRON INJ 2 MG/ML 2 ML VIAL ONE (13:44)
[2017-03-08] MEDS ORDERED: PROPOFOL IV EMULSION 10 MG/ML 20 ML VIAL IV ONE (13:44)
[2017-03-08] MEDS ORDERED: GLYCOPYRROLATE INJ 0.2 MG/ML VIAL ONE (13:44)
[2017-03-08] MEDS ORDERED: SURGICEL ABSORB HEMOSTAT 2IN X 14IN TOP ONE (14:29)
--- NOTE | 2017-03-08 14:59 | Discharge Instructions ---
Discharge Instructions Date of Service Mar 08, 2017. Admission Reason for Admission: Ovarian Cyst Complex, Menorrhagia, Endometriosis Discharge Discharge Diagnosis / Problem: after surgery Discharge Goals Goal(s): Routine recovery after surgery Activity Recommendations Activity Limitations: as noted below . Instructions / Follow-Up Instructions / Follow-Up POST OPERATIVE: BOWEL FUNCTION/MEDICATIONS: 1. Constipation pain and discomfort are the most common complaints 5-7 days after surgery. Points 2-6 address the things that can help. 2. Chewing gum can help stimulate the gut and help improve digestion and motility. 3. Milk of Magnesia 1-2 times per day until return of bowel function. 4. Colace is a stool softener that helps. Taking this 2-3 times per day until bowel function returns to normal is highly recommended. 5. Dulcolax is a laxative that may be used if several days have passed without a bowel movement. Alternatively Miralax may be used daily instead. 6. Drink plenty of fluids as this will also reduce constipation. 7. Narcotic pain medications will be prescribed by your physician. They are safe to use and we encourage you to use them. If you are not allergic, ibuprofen will also be prescribed. Many patients will be able to transition off of the narcotic medications to ibuprofen by postoperative day 3. ACTIVITY RECOMMENDATIONS: 1. Get plenty of rest and listen to your body. If you are tired, take a nap. 2. You may shower, but do not take a tub bath until you see your doctor at the 2 week post operative visit. 3. Absolutely NO intercourse and nothing in the vagina until you are examined by your doctor at the 8 week visit. At that visit it will be determined when such activities can be resumed. This can range from 6-12 weeks after your surgery depending on healing time. 4. The main physical activity in the first week should be walking. By the second week you can slowly increase activity. There are no limits on walking up and down stairs. 5. Do not lift more than 5-10 lbs for 4 weeks. Remember the "one-handed rule", i.e. if you can lift something with only one hand it's likely okay. 6. Minimize tobacco shaker like vacuuming and exercising for 4 weeks. "Overdoing it" can lead to incisions not healing, pain and vaginal bleeding , so again, listen to your body. 7. Driving can be resumed when you feel able. Do not drive within 24 hours of taking a narcotic medication. EXPECTATIONS: 1. Vaginal spotting, bleeding and discharge are common after surgery. There may even be an odor to the discharge which is often related to sutures used in the vagina. If you experience heavy vaginal bleeding, call the office number day or night [phone]. 2. Bladder discomfort is common after surgery from the catheter. This usually resolves in 1-2 weeks. 3. By the end of the 3rd or 4th week you should be feeling much better. It may take up to 6 weeks for your energy levels to return to normal. 4. Narcotic medications have side effects such as: dizziness, headache, nausea and/or vomiting. If you suspect your pain medication is causing problems, call our office and we may be able to prescribe an alternate medication. 5. The skin incisions are often covered with a liquid bandage. This will gradually peel off over time. CALL THE OFFICE IF YOU HAVE ANY OF THE FOLLOWIN. Temperature of 101 degrees or higher. 2. Severe abdominal or pelvic pain not relieved by pain medication. 3. Persistent nausea or vomiting. 4. Increased pain with urination or difficulty urinating. 5. Bright red bleeding that soaks more than 1 pad per hour. CONTACT PHONE NUMBERS: Main Office: [phone] Surgical Nurse: [phone] extension [phone] FOLLOW-UP: Post-Operative Appointments: * Individual instructions will have been given about the timing of your first examination, but this is usually at the end of the second week home. * You will need to call the office at soon after discharge to make the appointment for your post-op check-up if it has not already been scheduled. * Additional information regarding activity, sexual intercourse and when to return to work will be given at this appointment. WE WISH YOU A SPEEDY RECOVERY! Current Hospital Diet Patient's current hospital diet: Discharge Diet Recommended Diet: Regular Diet Procedures Procedures Performed: Total Laparoscopic Hysterectomy, Right Salpingo-Oophorectomy, Left Salpingectomy, Lysis of Adhesions, Cystoscopy DaVinci Pending Studies Studies pending at discharge: yes List of pending studies: pathology Medical Emergencies . Who to Call and When: Medical Emergencies: If at any time you feel your situation is an emergency, please call 911 immediately. . Non-Emergent Contact Non-Emergency issues call your: Pre Wave Assembler . . "Provider Documentation" section prepared by Cristal Oscar. . VTE Core Measure Inpt VTE Proph given/why not?: SCD's [place] Drug Monitoring Program Search Results: patient reviewed within database, see additional documentation ([facility], pt took home all narcotic scripts that they have filled. this is counter to what patient told me which was when the script had acetominophen she did not have filled. )
[2017-03-08] MEDS ORDERED: KETOROLAC TROMETHAMINE 30 MG/ML VIAL IV. PRN (15:00)
[2017-03-08] MEDS ORDERED: PROMETHAZINE HCL INJ 25 MG in SODIUM CHLORIDE 0.9% 50ML 50 ML IV PRN (15:00)
[2017-03-08] MEDS ORDERED: OXYCODONE HCL IR 5 MG TAB (IMMEDIATE RELEASE) PO PRN (15:00)
[2017-03-08] MEDS ORDERED: IBUPROFEN 600 MG TAB PO PRN ×2 (15:00)
[2017-03-08] MEDS ORDERED: SIMETHICONE 80 MG CHEW PO PRN (15:00)
[2017-03-08] MEDS ORDERED: ONDANSETRON 4MG OD TAB PO PRN (15:00)
[2017-03-08] MEDS ORDERED: HYDROmorphone INJ 1 MG/ML SYR ONE (15:06)
--- NOTE | 2017-03-08 15:09 | [facility] Post Operative Brief Note ---
Immediate Operative Summary Operative Date Mar 08, 2017. Pre-Operative Diagnosis Menorrhagia, Right Ovarian Cyst, complex, Dysmenorrhea, Bladder Pain, Endometriosis Post-Operative Diagnosis Menorrhagia, Right Ovarian Cyst, complex, Dysmenorrhea, Bladder Pain, History of Endometriosis, Pelvic omental adhesions Procedure(s) Performed Total Laparoscopic Hysterectomy, Right Salpingo-Oophorectomy, Left Salpingectomy, Lysis of Adhesions, Cystoscopy Juan Jose Surgeon Dr. Cristal Oscar Welding Specialist Surgeon(s) Dr. Roberto Carlos Suarez Estimated Blood Loss 10 mL Findings uterus top normal size, mobile in pelvis. nl left ovary. bilateral fallopian tubes normal appearing except for evidence of tubal ligation. right ovary enlarged, mobile, smooth capsule and contained clear fluid, about 6x7cm size. no evidence of endometriosis. nl liver edge. omental adhesions both filmy and dense to anterior midline abdominal wall. cystoscopy finding with nl ureteral jets x 3, 2 on left and one on right. also normal dome. Fluids (cc crystalloids) 1600 Specimens Permanent specimens A: Uterus, cervix, right fallopian tube, right ovary, left fallopian tube Drains fontanez Anesthesia general Complication(s) None Disposition Recovery Room / PACU
--- NOTE | 2017-03-08 15:31 | OPERATIVE REPORT ---
DATE OF OPERATION: 03/08/2017 PREOPERATIVE DIAGNOSES: 1. Menorrhagia. 2. Complex ovarian cyst on the right. 3. Dysmenorrhea. 4. Bladder pain. 5. History of endometriosis. POSTOPERATIVE DIAGNOSIS: 1. Same. 2. Omental adhesions. PROCEDURES: 1. Total laparoscopic hysterectomy. 2. Right salpingo-oophorectomy. 3. Left salpingectomy. 4. Lysis of adhesions. 5. Cystoscopy. 6. Robotic assistance. SURGEON: Dr. Cristal Oscar. HOLLOW HANDLE BENCH WORKER: Dr. Filiberto Suarez. INTRAVENOUS FLUIDS: 1,500 mL. ESTIMATED BLOOD LOSS: 10 mL. FINDINGS: Uterus top normal size, mobile in the pelvis. Normal left ovary and fallopian tube. Fallopian tubes both consistent with prior tubal ligation. The right ovary enlarged filling pelvis but mobile. No adhesions of the ovary. Surface looks smooth. Clear fluid extruding upon puncture of the ovarian cyst. No evidence of endometriosis implants. Omental adhesions to the anterior abdominal wall in the midline, some dense and some filmy. Cystoscopy findings with normal bladder filling and normal ureteral jets x3, 2 on the left side and 1 on the right. INDICATIONS: A 31-year-old 3, para 3 with a history of abnormal uterine bleeding including menometrorrhagia as well as a persistent right complex ovarian cyst who desires surgical management. The patient had seen Dr. Paulino and recently underwent a laparoscopy after having a lesion of her scar removed that was thought to be endometriosis. She has painful periods and was offered a diagnostic laparoscopy at the same time. She had a large right ovarian cyst and endometriosis at that time. She had a persistence of a right-sided ovarian cyst that was thought to be complex of 6 x 7 cm. She complained of intolerable bleeding with her period and had a previous history of a tubal ligation. She desired removal of her uterus for management of her heavy menses and was well aware of her options for management of that diagnosis. In addition, she desired removal of the right ovary because of persistent right ovarian cyst. PROCEDURE: The patient was taken to the operating room and identified. After adequate general anesthesia was obtained, she was placed in the dorsal lithotomy position and prepped and draped in the usual sterile fashion. A weighted speculum and anterior retractor used to visualize the cervix after Hannon catheter was placed under sterile conditions. The cervix was grasped in its anterior lip with an Allis clamp. A single interrupted suture of 0 Vicryl was placed at the 3 o'clock position. The cervix was sequentially dilated using Hegar dilators to 23. The uterus sounded to 9 cm. The FFFavsare uterine manipulator was gently placed through the cervical os into the uterine cavity and its balloon was inflated. Its initial cup was tied down and stabilizing cup was secured. All vaginal retractors were then removed. Attention was then turned to the patient's abdomen. A supraumbilical skin incision was made with a scalpel. The Veress needle was placed intraperitoneally with an opening pressure of 1 mmHg. A CO2 pneumoperitoneum was created. The optical trocar 12 mm was then placed under direct visualization into the peritoneal cavity. The patient was placed in steep Trendelenburg. The abdominal findings were as noted above. The right upper quadrant was inspected with a normal liver edge noted. The uterus was manipulated and the findings are as noted above. Two da Loco trocar sites left and right of the midline were created by first creating skin incisions and then placing under direct visualization da Loco trocar. The da Loco robot was then brought to the patient's bedside and the appropriate instrument arms were connected to the appropriate trocars. The camera was introduced. The monopolar temo was brought through instrument arm #1 and a fenestrated bipolar cautery was brought through instrument arm #2. The adhesions in the midline were taken down with care and there was no evidence of bowel contents in the adhesions. It was purely dense adhesions related to omental fat. Once these were taken down, the ureter was seen coursing well below the planned operative site on the right side. The infundibulopelvic ligament was identified and coagulated in sequence with the bipolar cautery. The monopolar temo were then used to cut the ligament as well as the remaining round ligament broad ligament attachments. The anterior and posterior leaves of the broad ligament on the right side were then opened up into and the bladder flap was begun from the right side across the midline. The uterine artery pedicle was skeletonized and it was coagulated in sequence with the bipolar cautery. Attention was then turned to the patient's left fallopian tube which was dissected in its mesosalpinx. The ureters were seen coursing well away from the planned operative site on the left side. 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 The uterine ovarian ligament, round ligament attachments were further coagulated and transected. The anterior and posterior leaves of the broad ligament on the left side were dissected and the bladder flap was begun from the left side towards the midline. The uterine artery pedicles were skeletonized. They were coagulated and then transected. The cardinal ligament attachments were further coagulated and transected after the bladder was reflected well away from the planned operative site. The colpotomy anteriorly was completely cleared. Attention was returned to the right uterine artery pedicle which was further coagulated and transected. The cardinal ligament attachments on this side were then coagulated and transected. The planned anterior colpotomy site was completely cleared. The colpotomy was begun from the posterior cuff. It was carried around circumferentially and the cervix was carved away from the upper vagina. The specimen was brought out vaginally. A sponge was then replaced in the vagina to allow for maintenance of the pneumoperitoneum. Small bleeding sites were coagulated. The 2-0 V-Loc 90 suture was brought in through the vagina and the #1 instrument arm was replaced with a large needle hire car driver. The vaginal cuff was then closed in the routine fashion using the suture material and back stitches were placed. The large needle hire car driver was removed from instrument arm #1 and a scissor followed by a needle hire car driver was used through this trocar site to remove the needle. The suction news videotape editor was then brought in through this site and the pelvis was irrigated. Small bleeding sites were noted and coagulated. Hemostasis was good. The pneumoperitoneum was allowed to be released and hemostasis was good. There was small oozing from the right aspect of the vaginal cuff and therefore a small amount of Surgicel was applied to this area by bringing it through the trocar on the right and laying it down using the instrument on the left. At this point the procedure was terminated. All the instruments were removed. The robot was undocked and moved away from the patient's bedside. The CO2 gas was allowed to escape from the patient's abdomen. The patient was returned to the supine position and the trocars had been removed. The fascia was reapproximated at the supraumbilical incision site using a single interrupted suture of 0 Vicryl. All incision sites were injected with Marcaine and then stitched in a subcuticular fashion with 4-0 Vicryl. Dermabond was applied. A new Hannon catheter had been placed after cystoscopy was performed with the findings as noted above. The patient was returned to the supine position and awoken from anesthesia. She was transferred to the recovery room in stable condition. I attest to the content of the Intraoperative Record and any orders documented therein. Any exceptions are noted below. MTDD
[2017-03-08] MEDS: HYDROmorphone INJ 1 MG/ML SYR IV PRN ×3 (15:40→15:55)
[2017-03-08] MEDS ORDERED: IV FLUIDS COMPLETED PRN (15:45)
[2017-03-08] MEDS ORDERED: SODIUM CHLORIDE 0.9% 1000ML 1,000 ML IV SCH (16:00)
[2017-03-08] MEDS ORDERED: LACTATED RINGER'S 1000ML 1,000 ML IV SCH (16:00)
[2017-03-08] MEDS ORDERED: LORAZEPAM INJ 1 MG in SYRINGE 0.5 ML IV STA (16:07)
[2017-03-08] MEDS ORDERED: LORAZEPAM 2 MG/ML 1 ML VIAL IV STA (16:11)
--- NOTE | 2017-03-08 16:31 | Anesthesiology Progress Note ---
Anesthesia Post Op Note Date & Time Mar 08, 2017 at 16:31 Vital Signs Pain Intensity: 7 Vital Signs Past 12 Hours Date Time Temp Pulse Resp B/P (MAP) Pulse Ox O2 Delivery O2 Flow Rate FiO2 03/08/17 16:20 76 16 125/92 99 Nasal Cannula 2 03/08/17 16:10 74 14 111/78 99 Room Air 03/08/17 16:00 68 16 114/77 96 Room Air 03/08/17 15:50 76 15 101/70 100 Nasal Cannula 2 03/08/17 15:40 72 20 126/80 100 Nasal Cannula 2 03/08/17 15:30 69 20 123/79 100 Nasal Cannula 2 03/08/17 15:20 93 20 122/69 100 Oxymask 8 03/08/17 15:10 88 22 142/93 100 Oxymask 8 03/08/17 15:00 92 16 127/81 100 Oxymask 8 03/08/17 14:56 36.7 106 16 140/96 100 Oxymask 8 03/08/17 09:48 36.7 74 18 Notes Mental Status: alert / awake / arousable, participated in evaluation Pt Amnestic to Procedure: Yes Nausea / Vomiting: adequately controlled Pain: adequately controlled Airway Patency, RR, SpO2: stable & adequate BP & HR: stable & adequate Hydration State: stable & adequate Anesthetic Complications: no major complications apparent
[2017-03-08 16:45] VITALS: BP 112/68; PULSE 75; TEMP 37.1; O2SAT 97
--- NOTE | 2017-03-08 16:45 | NUR ---
OBS: Pt arrived to 476-2 from PACU on bed at 1645. VS WNL, sats 97% on RA. Denies nausea, c/o abdominal cramping pain of 8/10. Requests roxicodone. Hannon draining clear green urine. SCDs on. LR infusing. Pt requesting to go home, discharge criteria discussed and pt verbalized understanding. Friend accompanying pt already has prescription.
[2017-03-08 17:15] VITALS: BP 115/85; PULSE 68; TEMP 36.5; O2SAT 99
[2017-03-08 17:45] VITALS: BP 116/74; PULSE 85; O2SAT 96; O2SAT 97
[2017-03-08 18:19] VITALS: BP 116/74; PULSE 85; TEMP 36.5; O2SAT 96
[2017-03-08 18:35] VITALS: BP 136/85; PULSE 89; TEMP 37; O2SAT 98
--- NOTE | 2017-03-08 18:45 | NUR ---
OBS: Hannon d/c at 1700 and pt ambulated to bathroom x3 without difficulty, voided total of 400 ml green urine. Pt consumed 100% of dinner without nausea, drank 2 tosin ales. LR d/c at 1800 and saline locksx2 removed. Continued to rate pain 7/10 at discharge but refused longer stay for pain management. Pt accurately described use of triflow but declined demonstrating prior to discharge. Encouraged to use 10x per hour while awake until back to normal activity level. Discharge instructions given and pt verbalized understanding. Discharged to [facility] in [facility] accompanied by volunteer at 1845.
--- NOTE | 2017-03-11 17:07 | Discharge Summary ---
Discharge Summary Date of Service Mar 08, 2017. Date of discharge: 03/08/17 Discharge Summary Admission diagnoses: menorrhagia, right complex ovarian cyst, chronic bladder pain, history of endometriosis, dysmenorrhea Discharge diagnoses: same, pelvic adhesions Procedures: total laparoscopic hysterectomy, right salpingoophrectomy, left salpingectomy, cystoscopy, lysis of adhesions, robotic assistance. Brief history and hospital course: 31yo who has completed her childbearing with intolerable bleeding and persistent large right ovarian cyst who desires surgical management. Please see history and physical for more details. She has h /o endometriosis and chronic bladder pain as well. She wanted definitive hysterectomy to manage her abnormal bleeding and pain with periods. She wanted removal of right ovary due to complex cystic mass that was 6 cm x 7cm. She underwent the above stated procedures without incident and was stable to discharge to home later that day. She was given discharge instructions, appropriate pain medicine prescriptions and instructions for followup in 2 weeks.
[2017-04-22] MEDS ORDERED: MTR500 PO (08:25)
[2017-04-22] MEDS ORDERED: RXC5 PO (08:25)
== END 2017-03-08 18:45 | disposition home or self-care (01) ==
LOC: C.ACU 09:18 → ENRESERV 16:04 → C.MS4N 16:59
PROVIDERS: ADMIT Obstetrics & Gynecology; ATTEND Obstetrics & Gynecology
DX: N92.0 Excessive and frequent menstruation with regular cycle (principal); D27.0 Benign neoplasm of right ovary; N73.6 Female pelvic peritoneal adhesions (postinfective); N70.11 Chronic salpingitis; N94.6 Dysmenorrhea, unspecified; F17.200 Nicotine dependence, unspecified, uncomplicated; R39.89 Other symptoms and signs involving the genitourinary system; N80.9 Endometriosis, unspecified; Z80.42 Family history of malignant neoplasm of prostate; Z82.49 Family history of ischemic heart disease and other diseases of the circulatory system; Z83.3 Family history of diabetes mellitus; Z80.3 Family history of malignant neoplasm of breast; Z80.41 Family history of malignant neoplasm of ovary; Z80.1 Family history of malignant neoplasm of trachea, bronchus and lung
CPT/HCPCS: 58571; S2900

== ENCOUNTER 2017-03-31 12:36 | Emergency (ER) | payer OTHER ==
[~2017-03-31] VITALS: Ht 157.5 cm; Wt 61.0 kg
[~2017-03-31 12:36] MED LIST changes: -ACET500T58 PO; -AMOX500C3 PO; -ATROPINE SULFATE 0.1 MG/ML 5ML SYR IV PRN; -CEFAZOLIN 2000MG IV PUSH 10 ML IV SCH; -EpHEDrine SULFATE INJ 50 MG/ML AMP IV PRN; -FENTANYL CITRATE INJ 50 MCG/1 ML 2 ML VIAL IV PRN; +GABA-113 PO; -LACTATED RINGER'S 1000ML 1,000 ML IV SCH; -ONDANSETRON INJ 2 MG/ML 2 ML VIAL IV PRN; -OXYC-90 PO; -PROMETHAZINE HCL INJ 12.5 MG in SODIUM CHLORIDE 0.9% 50ML 50 ML IV PRN; +RXC/5 PO
[2017-03-31 12:42] VITALS: BP 131/77; PULSE 72; TEMP 36.8; O2SAT 98; Ht 157.5 cm; Wt 61.0 kg
[2017-03-31] MEDS ORDERED: DIPHTHERIA/TETANUS/PERTUSSIS 0.5 ML SYR/VIAL IM. ONE (13:00)
[2017-03-31] MEDS ORDERED: NAPROXEN 250 MG TAB PO STA (13:16)
--- NOTE | 2017-03-31 13:26 | DIAGNOSTIC IMAGING REPORT ---
LEFT KNEE 3 VIEWS HISTORY: L knee contusion COMPARISON: None. FINDINGS: There is no fracture or dislocation. Mild prepatellar soft tissue swelling. No knee effusion. IMPRESSION: No fracture or dislocation within the left knee. Electronically signed by: Salazar Osborne M.D. 03/31/2017 1:25 PM Dictated Date/Time: 03/31/2017 1:24 PM
--- NOTE | 2017-03-31 15:52 | EMERGENCY ROOM VISIT NOTE ---
History First contact with patient: 12:46 Chief Complaint: FALL Stated Complaint: FALL ON ICE,LEFT KNEE SWELLED,PAIN DOWN LEG History of Present Illness The patient is a 31 year old female who presents to the Emergency Room with complaints of an injury to her left knee after she slipped on ice and fell yesterday afternoon. The patient reports landing directly on the front of her left knee. She complains of pain over the inner aspect of the knee, and outer aspect of the leg. She denies any paresthesias or numbness of the left leg, foot or toes. She denies any other injuries from this fall, including head injury, neck pain, back pain or other extremity injuries. Weightbearing worsens her pain to a 6 out of 10. The patient denies any prior history of left knee injuries. Patient is uncertain of her last tetanus immunization. Review of Systems 10 system review was performed and was negative except for pertinent positives and negatives as indicated in history of present illness Past Medical/Surgical History Medical Problems: (1) Acute liver failure (2) BREECH PRESENTAT-DELIVER (3) Chronic bladder pain (4) Complex cyst of right ovary (5) Deliver-Single Liveborn (6) DENTAL DISORDER NOS (7) Dysmenorrhea (8) FEM PELV INFLAM DIS NOS (9) Hepatitis C (10) Menometrorrhagia (11) Prev Delivry W/ Or W/O Ment Antepart Cond Surgical Problems: (1) Hx of cholecystectomy Family History FH: HTN (hypertension) FH: cancer FH: diabetes mellitus FH: lung disease FH: seizures Heart disease Social History Smoking Status: Current Every Day Smoker Alcohol Use: none Drug Use: none Marital Status: single Housing Status: lives with family Occupation Status: employed Current/Historical Medications No Active Prescriptions or Reported Meds Physical Exam Vital Signs Date Time Temp Pulse Resp B/P (MAP) Pulse Ox O2 Delivery O2 Flow Rate FiO2 03/31/17 12:42 36.8 72 18 131/77 98 Room Air Physical Exam CONSTITUTIONAL: Healthy and well nourished. Alert and oriented X 3 with positive affect. Patient appears in mild discomfort on exam. HEENT: Normocephalic, atraumatic. Pupils equal, round and reactive. NECK: Full active range of motion without discomfort. MUSCULOSKELETAL: Examination of the left knee shows an abrasion/scab over the patellar region. No joint effusion noted. Passive flexion and extension worsens discomfort. Ligamentous exam is normal. No tenderness to palpation through the hamstrings or gastroc muscle. Pedal pulses are intact. INTEGUMENTARY: No rash or other significant dermatologic conditions noted. NEUROLOGIC: No focal neurologic deficits noted. Left foot and toes are sensory intact. Medical Decision & Procedures ER Provider Diagnostic Interpretation: My interpretation of left knee x-rays does not show any acute fractures, dislocations, subluxations or joint effusion. Radiologist report is as follows: LEFT KNEE 3 VIEWS HISTORY: L knee contusion COMPARISON: None. FINDINGS: There is no fracture or dislocation. Mild prepatellar soft tissue swelling. No knee effusion. IMPRESSION: No fracture or dislocation within the left knee. Medications Administered Medications (Trade) Dose Ordered Sig/Aury Route Start Time Stop Time Status Last Admin Dose Admin Diphtheria/ Pertussis/Tetanus Vacc (Adacel Inj) 0.5 ml ONCE ONCE IM. 03/31/17 13:00 03/31/17 13:01 DC 03/31/17 13:11 0.5 ML Naproxen (Naprosyn Tab) 500 mg NOW STAT PO 03/31/17 13:16 03/31/17 13:20 DC 03/31/17 13:27 500 MG ED Course Patient history and physical exam were performed. Nurse's notes were reviewed. Vital signs were reviewed and were normal. The patient reports that she cannot take Tylenol because of a history of hepatitis C. She usually takes meloxicam as needed for pain. The patient was administered naproxen 500 mg. Review of the [place] Prescription Drug Monitoring Program shows that the patient has received 11 narcotic prescriptions from 8 different providers, filled at 4 different pharmacies over the past year. X-rays of the left knee were normal. A knee immobilizer and crutches were dispensed. The patient was advised that the immobilizer and crutches are her best form of pain management. She was also encouraged to intermittently apply ice. She was instructed to continue with her meloxicam as needed for pain. I did review the patient's prescription history with her, and indicated that I do not feel that narcotic analgesics are indicated for this injury. The patient then stated that her family doctor has always told her to come to the emergency department as needed for pain. The patient was advised that the emergency Department does not provide services solely for providing prescription medications or chronic pain management. She was encouraged to follow-up with her PCP or orthopedics if symptoms are not improving within the next 5-7 days. The patient voiced understanding of all discharge instructions, and rated her pain a 5 out of 10 at the conclusion of my exam. Medical Decision [place] Drug Monitoring Program Search Results: patient reviewed within database, see additional documentation Medication Reconcilliation Current Medication List: was personally reviewed by me Blood Pressure Screening Patient's blood pressure: Normal blood pressure Impression Primary Impression: Contusion of left knee Additional Impression: Fall due to slipping on ice or snow Departure Information Prescriptions No Active Prescriptions or Reported Meds Referrals Angela Santizo (PCP) Patient Instructions My [facility] Problem Qualifiers
== END 2017-03-31 14:02 | disposition home or self-care (01) ==
LOC: C.EDB 12:37 → C.EDD 14:02
DX: S80.02XA Contusion of left knee, initial encounter (principal); W00.0XXA Fall on same level due to ice and snow, initial encounter; Y92.9 Unspecified place or not applicable; B19.20 Unspecified viral hepatitis C without hepatic coma; K72.00 Acute and subacute hepatic failure without coma; Z80.9 Family history of malignant neoplasm, unspecified; Z83.3 Family history of diabetes mellitus; Z83.6 Family history of other diseases of the respiratory system; Z82.49 Family history of ischemic heart disease and other diseases of the circulatory system; F17.210 Nicotine dependence, cigarettes, uncomplicated

== ENCOUNTER 2017-04-16 13:22 | Inpatient (IN) | payer OTHER ==
[~2017-04-16] VITALS: Ht 157.5 cm; Wt 62.0 kg
[2017-04-16] MEDS ORDERED: SODIUM CHLORIDE 0.9% 500ML 500 ML IV STA ×3 (14:17→18:25)
[2017-04-16] MEDS ORDERED: MoRPHine SULFATE 2 MG/ML CARP IV STA (14:17)
[2017-04-16] MEDS ORDERED: ONDANSETRON INJ 2 MG/ML 2 ML VIAL IV STA (14:17)
--- NOTE | 2017-04-16 14:42 | EMERGENCY ROOM VISIT NOTE ---
History Report prepared by Paula: Luis Horta Under the Supervision of: Dr. Jameel Anand M.D. First contact with patient: 13:42 Chief Complaint: ABDOMINAL PAIN Stated Complaint: ABD PAIN, BLEEDING, NAUSEA, VOMITTING Nursing Triage Summary: lower abd pain that started last night +nausea Having a hard time voiding and it hurt real bad when she went today + vag bleeding and discharge History of Present Illness The patient is a 31 year old female who presents to the Emergency Room with complaints of persistent sharp pelvic pain, more so on the right, that began last night. She rates her pain a 10/10 in severity. She has a past medical history of three cesarian sections without complications and a recent hysterectomy with a right oophorectomy and cervix removal secondary to heavy menstrual bleeding and endometriosis. The hysterectomy procedure was completed on March 082016. Last night, the patient experienced vaginal bleeding after sexual intercourse. She felt a sudden popping sensation and began to experience persistent pelvic pain. She states that the vaginal bleeding she was experiencing was less than her past menstrual periods. She tried Motrin and a heating pad without any relief. She recorded a fever of 102 last night as well. She is having some nausea without vomiting. She notes some difficulty urinating secondary to pain. Source of History: patient Onset: last night Position: abdomen (pelvis) Symptom Intensity: 10/10 Quality: sharp Timing: other (Persistent) Associated Symptoms: + fevers, + nausea, + urinary symptoms (difficulty and pain with urination), No vomiting Note: She is experiencing vaginal bleeding. Review of Systems See HPI for pertinent positives & negatives. A total of 10 systems reviewed and were otherwise negative. Past Medical & Surgical Medical Problems: (1) Acute liver failure (2) BREECH PRESENTAT-DELIVER (3) Chronic bladder pain (4) Complex cyst of right ovary (5) Deliver-Single Liveborn (6) DENTAL DISORDER NOS (7) Dysmenorrhea (8) FEM PELV INFLAM DIS NOS (9) Hepatitis C (10) Menometrorrhagia (11) Prev Delivry W/ Or W/O Ment Antepart Cond Surgical Problems: (1) History of hysterectomy (2) Hx of cholecystectomy Family History FH: HTN (hypertension) FH: cancer FH: diabetes mellitus FH: lung disease FH: seizures Heart disease Social History Smoking Status: Current Every Day Smoker Alcohol Use: none Drug Use: none Marital Status: single Housing Status: lives with family Occupation Status: employed Current/Historical Medications No Active Prescriptions or Reported Meds Allergies Coded Allergies: Acetaminophen (Verified Adverse Reaction, Severe, NOT TO HAVE DUE TO POOR LIVER FUNCTION, 04/16/17) Tramadol (Verified Adverse Reaction, Intermediate, HEADACHE-MIGRAINES, ) Physical Exam Vital Signs Date Time Temp Pulse Resp B/P (MAP) Pulse Ox O2 Delivery O2 Flow Rate FiO2 04/16/17 18:07 99 18 128/69 98 04/16/17 16:20 101 14 119/85 99 Room Air 04/16/17 15:22 98 16 132/80 99 Room Air 04/16/17 13:26 36.7 125 20 114/61 99 Physical Exam GENERAL: Patient is in no acute distress. HEENT: No acute trauma, normocephalic atraumatic, mucous membranes moist, no nasal congestion, no scleral icterus. NECK: No stridor, no adenopathy, no meningismus, trachea is midline. LUNGS: Clear to auscultation bilaterally, no wheeze, no rhonchi, breath sounds equal. HEART: Mildly tachycardic with a regular rhythm. No murmurs. ABDOMEN: Soft, tenderness to the bilateral lower pelvis but more so on the right , bowel sounds positive, no hernias, no peritonitis. EXTREMITIES: No cyanosis or edema, full range of motion of all the joints without pain or difficulty, no signs for acute trauma. NEUROLOGIC: Oriented x 3, no acute motor or sensory deficits, no focal weakness. SKIN: No rash, no jaundice, no diaphoresis. Medical Decision & Procedures ER Provider Diagnostic Interpretation: Radiology results as stated below per my review and radiologist interpretation: Laboratory Results 04/16/17 14:51 Red Blood Count 5.17, Mean Corpuscular Volume 81.0, Mean Corpuscular Hemoglobin 26.9, Mean Corpuscular Hemoglobin Concent 33.2, Mean Platelet Volume 11.0, Neutrophils (%) (Auto) 84.0, Lymphocytes (%) (Auto) 10.9, Monocytes (%) (Auto) 4.7, Eosinophils (%) (Auto) 0.0, Basophils (%) (Auto) 0.1, Neutrophils # (Auto) 19.94, Lymphocytes # (Auto) 2.60, Monocytes # (Auto) 1.12, Eosinophils # (Auto) 0.01, Basophils # (Auto) 0.03 04/16/17 14:51 Test 04/16/17 13:52 04/16/17 14:51 04/16/17 15:47 Urine Color YELLOW Urine Appearance CLEAR (CLEAR) Urine pH 5.5 (4.5-7.5) Urine Specific [place] 1.026 (1.000-1.030) Urine Protein NEG (NEG) Urine Glucose (UA) NEG (NEG) Urine Ketones NEG (NEG) Urine Occult Blood 1+ (NEG) Urine Nitrite NEG (NEG) Urine Bilirubin NEG (NEG) Urine Urobilinogen NEG (NEG) Urine Leukocyte Esterase TRACE (NEG) Urine WBC (Auto) 5-10 /hpf (0-5) Urine RBC (Auto) 5-10 /hpf (0-4) Urine Hyaline Casts (Auto) 1-5 /lpf (0-5) Urine Epithelial Cells (Auto) >30 /lpf (0-5) Urine Bacteria (Auto) NEG (NEG) Urine Mucus PRESENT (NONE PRSENT) Urine Yeast (Auto) (NONE PRSENT) White Blood Count 23.76 K/uL (4.8-10.8) Red Blood Count 5.17 M/uL (4.2-5.4) Hemoglobin 13.9 g/dL (12.0-16.0) Hematocrit 41.9 % (37-47) Mean Corpuscular Volume 81.0 fL (80-100) Mean Corpuscular Hemoglobin 26.9 pg (25-34) Mean Corpuscular Hemoglobin Concent 33.2 g/dl (32-36) Platelet Count 227 K/uL (130-400) Mean Platelet Volume 11.0 fL (7.4-10.4) Neutrophils (%) (Auto) 84.0 % Lymphocytes (%) (Auto) 10.9 % Monocytes (%) (Auto) 4.7 % Eosinophils (%) (Auto) 0.0 % Basophils (%) (Auto) 0.1 % Neutrophils # (Auto) 19.94 K/uL (1.4-6.5) Lymphocytes # (Auto) 2.60 K/uL (1.2-3.4) Monocytes # (Auto) 1.12 K/uL (0.11-0.59) Eosinophils # (Auto) 0.01 K/uL (0-0.5) Basophils # (Auto) 0.03 K/uL (0-0.2) RDW Standard Deviation 45.2 fL (36.4-46.3) RDW Coefficient of Variation 15.4 % (11.5-14.5) Immature Granulocyte % (Auto) 0.3 % Immature Granulocyte # (Auto) 0.06 K/uL (0.00-0.02) Prothrombin Time 12.2 SECONDS (9.0-12.0) Prothromb Time International Ratio 1.2 (0.9-1.1) Activated Partial Thromboplast Time 28.3 SECONDS (21.0-31.0) Partial Thromboplastin Ratio 1.1 Anion Gap 5.0 mmol/L (3-11) Est Creatinine Clear Calc Drug Dose 94.9 ml/min Estimated GFR () 125.4 Estimated GFR (Non- 108.2 BUN/Creatinine Ratio 9.3 (10-20) Calcium Level 8.4 mg/dl (8.5-10.1) Total Bilirubin 0.9 mg/dl (0.2-1) Aspartate Amino Transf (AST/SGOT) 35 U/L (15-37) Alanine Aminotransferase (ALT/SGPT) 90 U/L (12-78) Alkaline Phosphatase 65 U/L (45-117) Total Protein 8.5 gm/dl (6.4-8.2) Albumin 3.6 gm/dl (3.4-5.0) Globulin 4.9 gm/dl (2.5-4.0) Albumin/Globulin Ratio 0.7 (0.9-2) Lactic Acid Level 2.0 mmol/L (0.4-2.0) Laboratory results reviewed by me. Medications Administered Medications (Trade) Dose Ordered Sig/Aury Route Start Time Stop Time Status Last Admin Dose Admin Sodium Chloride 500 ml @ 999 mls/hr Q31M STAT IV 04/16/17 14:17 04/16/17 14:47 DC 04/16/17 15:17 999 MLS/HR Ondansetron HCl (Zofran Inj) 4 mg NOW STAT IV 04/16/17 14:17 04/16/17 14:37 DC 04/16/17 15:15 4 MG Morphine Sulfate (MoRPHine SULFATE INJ) 1 mg NOW STAT IV 04/16/17 14:17 1/30/18 14:37 DC 04/16/17 15:15 1 MG Piperacillin Sod/ Tazobactam Sod (Zosyn Iv) 4.5 gm NOW STAT IV 04/16/17 15:18 04/16/17 15:19 DC 04/16/17 16:31 4.5 GM Morphine Sulfate (MoRPHine SULFATE INJ) 4 mg Q15M PRN IV 04/16/17 15:30 04/30/17 15:29 04/16/17 18:04 4 MG Sodium Chloride 500 ml @ 999 mls/hr Q31M STAT IV 04/16/17 15:23 04/16/17 15:57 DC 04/16/17 16:25 999 MLS/HR ED Course 1342: The patient was evaluated in room B5. A complete history and physical exam was performed. 1438: The patient's urine was dipped and showed 50 of blood, trace leukocytes, and a negative . The patient informed me that she does not want to have a pelvic exam because she is concerned for possible pain. 1417: Ordered Morphine Sulfate 1 gm IV, Zofran Inj 4 mg IV, Sodium Chloride 500 ml @ 999 mls/hr IV 1518: Ordered Zosyn Iv 4.5 gm IV 1523: Ordered Sodium Chloride 500 ml @ 999 mls/hr IV 1530: Ordered Morphine Sulfate 4 mg IV Medical Decision Differential diagnosis includes but is not limited to appendicitis, ovarian cyst , abscess, vaginal pouch tear, musculoskeletal pain, UTI, and dehydration. There is a significant leukocytosis with a white count of 23,000. This could be consistent with infection. No concerning anemia. No significant electrolyte abnormality, kidney failure or hepatitis. Urinalysis does not show evidence for infection. Lactic acid level is not elevated making severe sepsis less likely. No concerning coagulopathy. On exam, the patient was not febrile or toxic. She did not have evidence for peritonitis. Abdominal and pelvis CT is pending. The patient presents slightly tachycardic. She did have lower pelvic discomfort on exam. She received IV saline for hydration, she was given IV Zosyn as antibiotic coverage. She received IV morphine and IV Zofran. The patient is more comfortable. I have concerns though for abscess or possibly pouch perforation given her exam and findings. We await the CT results. OB will likely need contacted. Dr. Knowles has assumed care. Medication Reconcilliation Current Medication List: was personally reviewed by me Blood Pressure Screening Patient's blood pressure: Normal blood pressure Blood pressure disposition: Did not require urgent referral Impression Primary Impression: Pelvic pain Additional Impressions: Leukocytosis Status post hysterectomy Scribe Attestation The scribe's documentation has been prepared under my direction and personally reviewed by me in its entirety. I confirm that the note above accurately reflects all work, treatment, procedures, and medical decision making performed by me. Departure Information Dispostion Still a Patient Prescriptions No Active Prescriptions or Reported Meds Referrals Angela Santizo (PCP) Patient Instructions My [facility] Problem Qualifiers
--- NOTE | 2017-04-16 14:50 | EMERGENCY ROOM VISIT NOTE ---
History First contact with patient: 13:44 Chief Complaint: ABDOMINAL PAIN Stated Complaint: ABD PAIN, BLEEDING, NAUSEA, VOMITTING Nursing Triage Summary: lower abd pain that started last night +nausea Having a hard time voiding and it hurt real bad when she went today + vag bleeding and discharge History of Present Illness The patient is a 31 year old female s/p Hysterectomy with Right oophorectomy on 03/08 secondary to heavy menstrual bleeding, endometriosis, large Right complex cyst who presents to the Emergency Room with complaints of Lower Abdominal Pain. Patient reports while engaging sexual intercourse last night around 10:30 PM, she felt a sudden popping sensation with persistent pelvic pain worst on the right. Pain has been 7/10 and constant. She also reports associated moderate vaginal bleeding in addition to fever ( 102 degrees at home) chills, nausea. She also reports difficulty urinating and dysuria with blood noted in urine. Past Psychosocial Rehabilitation Counselor history including abnormal pap followed by colposcopy and LEEP procedure. OB history includes C/S x 3 without complication. She reports previous history of Acute Liver failure secondary to Tylenol overdose ( accidental per patient) Review of Systems Pt denies headache, change in vision, chest pain, shortness of breath, vomiting , diarrhea, and melena. Pt reports fever, abdominal pain, nausea, pain with urination, blood in urine Past Medical/Surgical History Medical Problems: (1) Acute liver failure (2) BREECH PRESENTAT-DELIVER (3) Chronic bladder pain (4) Complex cyst of right ovary (5) Dehiscence of vaginal cuff (6) Deliver-Single Liveborn (7) DENTAL DISORDER NOS (8) Dysmenorrhea (9) FEM PELV INFLAM DIS NOS (10) Hepatitis C (11) Menometrorrhagia (12) Pelvic abscess (13) Prev Delivry W/ Or W/O Ment Antepart Cond Surgical Problems: (1) History of hysterectomy (2) Hx of cholecystectomy Family History FH: HTN (hypertension) FH: cancer FH: diabetes mellitus FH: lung disease FH: seizures Heart disease Social History Smoking Status: Current Every Day Smoker Alcohol Use: none Drug Use: none Marital Status: single Housing Status: lives with family Occupation Status: employed Current/Historical Medications No Active Prescriptions or Reported Meds Physical Exam Vital Signs Date Time Temp Pulse Resp B/P (MAP) Pulse Ox O2 Delivery O2 Flow Rate FiO2 04/16/17 21:04 37.8 106 20 112/67 95 04/16/17 21:01 37.8 106 20 112/67 95 Room Air 04/16/17 18:07 99 18 128/69 98 04/16/17 16:20 101 14 119/85 99 Room Air 04/16/17 15:22 98 16 132/80 99 Room Air 04/16/17 13:26 36.7 125 20 114/61 99 Physical Exam GENERAL: alert ,+distress EYE EXAM: normal conjunctiva, PERRL and EOM's grossly intact NECK: supple, no nuchal rigidity, no adenopathy, non-tender LUNGS: Clear to auscultation. Normal chest wall mechanics HEART: no murmurs, S1 normal and S2 normal ABDOMEN: RUQ/RLQ tenderness to palpation , normo-active bowel sounds, no masses , no rebound or guarding. UPPER EXTREMITIES: upper extremities are grossly normal. LOWER EXTREMITIES: No pitting edema. NEURO EXAM: Normal sensorium, cranial nerves II-XII grossly intact, normal speech Medical Decision & Procedures Laboratory Results 04/16/17 14:51 Red Blood Count 5.17, Mean Corpuscular Volume 81.0, Mean Corpuscular Hemoglobin 26.9, Mean Corpuscular Hemoglobin Concent 33.2, Mean Platelet Volume 11.0, Neutrophils (%) (Auto) 84.0, Lymphocytes (%) (Auto) 10.9, Monocytes (%) (Auto) 4.7, Eosinophils (%) (Auto) 0.0, Basophils (%) (Auto) 0.1, Neutrophils # (Auto) 19.94, Lymphocytes # (Auto) 2.60, Monocytes # (Auto) 1.12, Eosinophils # (Auto) 0.01, Basophils # (Auto) 0.03 04/16/17 14:51 Test 04/16/17 13:52 04/16/17 14:51 04/16/17 15:47 Urine Color YELLOW Urine Appearance CLEAR (CLEAR) Urine pH 5.5 (4.5-7.5) Urine Specific [place] 1.026 (1.000-1.030) Urine Protein NEG (NEG) Urine Glucose (UA) NEG (NEG) Urine Ketones NEG (NEG) Urine Occult Blood 1+ (NEG) Urine Nitrite NEG (NEG) Urine Bilirubin NEG (NEG) Urine Urobilinogen NEG (NEG) Urine Leukocyte Esterase TRACE (NEG) Urine WBC (Auto) 5-10 /hpf (0-5) Urine RBC (Auto) 5-10 /hpf (0-4) Urine Hyaline Casts (Auto) 1-5 /lpf (0-5) Urine Epithelial Cells (Auto) >30 /lpf (0-5) Urine Bacteria (Auto) NEG (NEG) Urine Mucus PRESENT (NONE PRSENT) Urine Yeast (Auto) (NONE PRSENT) White Blood Count 23.76 K/uL (4.8-10.8) Red Blood Count 5.17 M/uL (4.2-5.4) Hemoglobin 13.9 g/dL (12.0-16.0) Hematocrit 41.9 % (37-47) Mean Corpuscular Volume 81.0 fL (80-100) Mean Corpuscular Hemoglobin 26.9 pg (25-34) Mean Corpuscular Hemoglobin Concent 33.2 g/dl (32-36) Platelet Count 227 K/uL (130-400) Mean Platelet Volume 11.0 fL (7.4-10.4) Neutrophils (%) (Auto) 84.0 % Lymphocytes (%) (Auto) 10.9 % Monocytes (%) (Auto) 4.7 % Eosinophils (%) (Auto) 0.0 % Basophils (%) (Auto) 0.1 % Neutrophils # (Auto) 19.94 K/uL (1.4-6.5) Lymphocytes # (Auto) 2.60 K/uL (1.2-3.4) Monocytes # (Auto) 1.12 K/uL (0.11-0.59) Eosinophils # (Auto) 0.01 K/uL (0-0.5) Basophils # (Auto) 0.03 K/uL (0-0.2) RDW Standard Deviation 45.2 fL (36.4-46.3) RDW Coefficient of Variation 15.4 % (11.5-14.5) Immature Granulocyte % (Auto) 0.3 % Immature Granulocyte # (Auto) 0.06 K/uL (0.00-0.02) Prothrombin Time 12.2 SECONDS (9.0-12.0) Prothromb Time International Ratio 1.2 (0.9-1.1) Activated Partial Thromboplast Time 28.3 SECONDS (21.0-31.0) Partial Thromboplastin Ratio 1.1 Anion Gap 5.0 mmol/L (3-11) Est Creatinine Clear Calc Drug Dose 94.9 ml/min Estimated GFR () 125.4 Estimated GFR (Non- 108.2 BUN/Creatinine Ratio 9.3 (10-20) Calcium Level 8.4 mg/dl (8.5-10.1) Total Bilirubin 0.9 mg/dl (0.2-1) Aspartate Amino Transf (AST/SGOT) 35 U/L (15-37) Alanine Aminotransferase (ALT/SGPT) 90 U/L (12-78) Alkaline Phosphatase 65 U/L (45-117) Total Protein 8.5 gm/dl (6.4-8.2) Albumin 3.6 gm/dl (3.4-5.0) Globulin 4.9 gm/dl (2.5-4.0) Albumin/Globulin Ratio 0.7 (0.9-2) Lactic Acid Level 2.0 mmol/L (0.4-2.0) Medications Administered Medications (Trade) Dose Ordered Sig/Aury Route Start Time Stop Time Status Last Admin Dose Admin Sodium Chloride 500 ml @ 999 mls/hr Q31M STAT IV 04/16/17 14:17 04/16/17 14:47 DC 04/16/17 15:17 999 MLS/HR Ondansetron HCl (Zofran Inj) 4 mg NOW STAT IV 04/16/17 14:17 04/16/17 14:37 DC 04/16/17 15:15 4 MG Morphine Sulfate (MoRPHine SULFATE INJ) 1 mg NOW STAT IV 04/16/17 14:17 04/16/17 14:37 DC 04/16/17 15:15 1 MG Piperacillin Sod/ Tazobactam Sod (Zosyn Iv) 4.5 gm NOW STAT IV 04/16/17 15:18 04/16/17 20:02 DC 04/16/17 16:31 4.5 GM Morphine Sulfate (MoRPHine SULFATE INJ) 4 mg Q15M PRN IV 04/16/17 15:30 04/16/17 20:02 DC 04/16/17 18:04 4 MG Sodium Chloride 500 ml @ 999 mls/hr Q31M STAT IV 04/16/17 15:23 04/16/17 15:57 DC 04/16/17 16:25 999 MLS/HR Sodium Chloride 500 ml @ 999 mls/hr Q31M STAT IV 04/16/17 18:25 04/16/17 18:55 DC 04/16/17 18:47 999 MLS/HR Medical Decision 31 yo F s/p Hysterectomy with Right oophorectomy on 03/08 secondary to heavy menstrual bleeding, endometriosis, large Right complex cyst who presents to the Emergency Room with complaints of Right sided Lower Abdominal Pain, vaginal bleeding in the setting of intercourse followed by nausea, afebrile, tachycardic on arrival. Differential diagnoses includes but is not limited to vaginal cuff dehiscence, intraabdominal abscess, gastritis, peptic ulcer disease, GERD, gallbladder disease, pancreatitis, small bowel obstruction, irritable bowel disease, irritable bowel syndrome, appendicitis, CBC: WBC ct: 23.76 PT/INR: 12.2/03/19 PTT: wnl UA: Trace leukocytes, 5-10 WBC, >30 epithelial cells Urine HCG: negative Blood cultures pending Lactate: negative CT abdomen/pelvis: crescentic fluid collection in presacral region, extraluminal gas in pelvis appearing to track to and into vaginal/cervical cuff. Given Morphine IV for pain, Given IV Zofran Given IV Zosyn 4 mg empirically Given 500 mL IV NS x 2 Based on results of CT, findings suggested abscess following recent hysterectomy with possible vaginal cuff dehiscence. This would be consistent with patient's sudden abdominal pain, tachycardia and leukocytosis. Upon reevaluation, the patient's pain, nausea is improved with Morphine, Zofran. I discussed the findings and the treatment plan with the patient. Patient expressed agreement and understanding. I discussed case with Dr. Marino, the on-call [facility]. Patient will be evaluated for further management. Impression Primary Impression: Dehiscence of vaginal cuff Additional Impressions: Pelvic abscess Leukocytosis Departure Information Dispostion Admitted as an inpatient Prescriptions No Active Prescriptions or Reported Meds Referrals Angela Santizo (PCP) Patient Instructions My [facility] Resident Tracking Resident Involvement: Resident Care Provided Care Provided: Adult ED Problem Qualifiers
[2017-04-16 15:00] LABS: BASO % 0.1 %; BASO ABS # 0.03 K/uL (0-0.2); EOS ABS # 0.01 K/uL (0-0.5); HEMATOCRIT 41.9 % (37-47); HEMOGLOBIN 13.9 g/dL (12.0-16.0); IG# 0.06 K/uL (0.00-0.02); LYMPH % 10.9 %; MEAN CORPUSCULAR HEMOGLOBIN 26.9 pg (25-34); MEAN CORPUSCULAR HGB CONC 33.2 g/dl (32-36); MONO % 4.7 %; MONO ABS # 1.12 K/uL (0.11-0.59); NEUT ABS # 19.94 K/uL (1.4-6.5); PLATELET COUNT 227 K/uL (130-400); RED CELL DISTRIBUTION WIDTH CV 15.4 % (11.5-14.5); RED CELL DISTRIBUTION WIDTH SD 45.2 fL (36.4-46.3); WHITE BLOOD COUNT 23.76 K/uL (4.8-10.8)
[2017-04-16 15:09] LABS: INR 1.2 (0.9-1.1); PTT PATIENT 28.3 SECONDS (21.0-31.0)
[2017-04-16] MEDS ORDERED: PIPERACILLIN/TAZOBACTAM 4.5 GM/100ML D5W IV STA (15:18)
[2017-04-16 15:19] LABS: ALBUMIN 3.6 gm/dl (3.4-5.0); CALCIUM 8.4 mg/dl (8.5-10.1); CREATININE 0.73 mg/dl (0.60-1.20); POTASSIUM 3.2 mmol/L (3.5-5.1)
[2017-04-16 15:22] LABS: TOTAL PROTEIN 8.5 gm/dl (6.4-8.2)
[2017-04-16] MEDS ORDERED: OPTIRAY 320 IV PRN (15:30)
[2017-04-16] MEDS: MoRPHine SULFATE 4 MG/ML 1 ML CARP\\VIAL IV PRN ×2 (16:26→18:04)
--- NOTE | 2017-04-16 18:39 | DIAGNOSTIC IMAGING REPORT ---
CT SCAN OF THE ABDOMEN AND PELVIS WITH IV CONTRAST CLINICAL HISTORY: Pelvic pain. Reported history of recent hysterectomy. COMPARISON STUDY: Abdominal CT dated 02/22/2017. TECHNIQUE: Following the IV administration of 115 cc of Optiray 320, CT scan of the abdomen and pelvis is performed from the lung bases to the proximal femora. Images are reviewed in the axial, sagittal, and coronal planes. IV contrast was administered without complication. A dose lowering technique was utilized adhering to the principles of ALARA. CT DOSE: 264.56 mGy.cm FINDINGS: Lung bases: The heart is normal in size and without pericardial effusion. The lung bases are clear. Liver: The contrast-enhanced liver is normal in size, contour, and attenuation. Fatty infiltration is seen adjacent to falciform ligament. There is minimal central intrahepatic biliary ductal dilatation. The hepatic veins and portal veins are patent. Gallbladder: Surgically absent noting clips in the gallbladder fossa. Spleen: The spleen is mildly enlarged measuring 13.4 cm in length. Pancreas: Unremarkable. Adrenal glands: Unremarkable. Kidneys: The contrast enhanced kidneys are normal in size and without hydronephrosis. The kidneys enhance symmetrically. Abdominal vasculature: The abdominal aorta is normal in course and caliber. Bowel: No bowel obstruction is seen. Mildly thick-walled loops of small bowel and colon are noted in the pelvis, likely related to surrounding inflammation. The appendix is well-visualized and normal. Peritoneum: There is no intraperitoneal free air or abdominal ascites. There is a small fat-containing umbilical hernia. Lymphadenopathy: None. Pelvic viscera: The bladder is normal as visualized. The uterus is surgically absent. No adnexal lesion is seen. There are bilateral ovarian follicles. There is infiltration of the pelvic fat with mild wall thickening of the adjacent bowel loops. There is a small peripherally enhancing crescentic fluid collection identified in the presacral region interdigitating between a loop of the sigmoid colon seen on image #339. This measures approximately 3.5 x 5.5 x 2.0 cm as seen on image #339. There are small foci of extraluminal gas identified in the pelvis, best seen on axial image #333. These appear to track down to the vaginal/cervical cuff, best seen on axial image #348. Gas appears to extend through the vaginal/cervical cuff and dehiscence is not excluded. Skeletal structures: No lytic or blastic lesions are seen. IMPRESSION: 1. The uterus is surgically absent. 2. There are is a peripherally enhancing crescentic fluid collection in the presacral region interdigitating around a loop of the sigmoid colon as detailed above. The appearance is highly concerning for abscess. 3. Inflammatory change is seen throughout the pelvic fat. Although some of this may be related to recent surgery, this is likely on an infectious basis. 4. There are small foci of extraluminal gas identified in the pelvis. These appear to track to and into the vaginal/cervical cuff. Dehiscence is not excluded. Clinical correlation will be essential. 5. There is mild wall thickening seen involving loops of small bowel and colon in the pelvis, likely related to surrounding inflammatory change. 6. Mild splenomegaly. 7. Additional findings as above. Electronically signed by: Jameel Mckeon M.D. 04/16/2017 6:38 PM Dictated Date/Time: 04/16/2017 6:24 PM
[2017-04-16] MEDS ORDERED: GENTAMICIN CONSULT ACTIVE PRN (20:00)
--- NOTE | 2017-04-16 21:24 | EMERGENCY ROOM VISIT NOTE ---
ED Visit Note The patient was seen and treated by Dr. Anand and Dr. Reed. Please see their notes for further details. Dr. Anand noted that her CT scan was pending and wanted me to ensure her disposition. The patient had the findings as noted in the EMR with her CAT scan. This was concerning for possible abscess and cuff dehiscence. Dr. Reed contacted Dr. Myrick of [facility]. She was evaluated in the Emergency Room and admitted for further management.
[2017-04-16 21:25] VITALS: BP 107/73; PULSE 100; TEMP 37.7; O2SAT 98; Ht 157.5 cm; Wt 62.0 kg
[2017-04-16] MEDS: OXYCODONE HCL IR 5 MG TAB (IMMEDIATE RELEASE) PO PRN (21:39)
[2017-04-16] MEDS: CLINDAMYCIN IV 600 MG in DEXTROSE 5% 50ML 50 ML IV SCH (22:00)
[2017-04-16] MEDS ORDERED: CLINDAMYCIN 600 MG/54 ML D5W IV SCH (22:00)
[2017-04-16] MEDS: MoRPHine SULFATE 2 MG/ML CARP IV PRN (22:27)
--- NOTE | 2017-04-16 22:39 | Pharmacy Progress Note ---
Pharmacy Abx Initial Consult Date of Service Apr 16, 2017. Pharmacy Dosing Scope Date of Consult: 04/16/17 Consultation requested by: Dr. Myrick Pharmacy is consulted to initiate Gentamicin IV dosing therapy, order appropriate labs and adjust drug dose/frequency. Subjective The patient is a 31 year old female admitted on Apr 16, 2017 at 20:01. Objective Height (Feet): 5 Height (Inches): 2.00 Weight (Kilograms): 62.000 Vital Signs (Past 12Hrs) Vital Signs Past 12 Hours Date Time Temp Pulse Resp B/P (MAP) Pulse Ox O2 Delivery O2 Flow Rate FiO2 04/16/17 21:25 37.7 100 18 107/73 98 Room Air 04/16/17 21:04 37.8 106 20 112/67 95 04/16/17 21:01 37.8 106 20 112/67 95 Room Air 04/16/17 18:07 99 18 128/69 98 04/16/17 16:20 101 14 119/85 99 Room Air 04/16/17 15:22 98 16 132/80 99 Room Air 04/16/17 13:26 36.7 125 20 114/61 99 Lab Results (24Hrs) Laboratory Tests (24 Hours) Test 04/16/17 14:51 04/16/17 15:47 White Blood Count 23.76 K/uL (4.8-10.8) H Red Blood Count 5.17 M/uL (4.2-5.4) Hemoglobin 13.9 g/dL (12.0-16.0) Hematocrit 41.9 % (37-47) Mean Corpuscular Volume 81.0 fL (80-100) Mean Corpuscular Hemoglobin 26.9 pg (25-34) Mean Corpuscular Hemoglobin Concent 33.2 g/dl (32-36) Platelet Count 227 K/uL (130-400) Mean Platelet Volume 11.0 fL (7.4-10.4) H Neutrophils (%) (Auto) 84.0 % Lymphocytes (%) (Auto) 10.9 % Monocytes (%) (Auto) 4.7 % Eosinophils (%) (Auto) 0.0 % Basophils (%) (Auto) 0.1 % Neutrophils # (Auto) 19.94 K/uL (1.4-6.5) H Lymphocytes # (Auto) 2.60 K/uL (1.2-3.4) Monocytes # (Auto) 1.12 K/uL (0.11-0.59) H Eosinophils # (Auto) 0.01 K/uL (0-0.5) Basophils # (Auto) 0.03 K/uL (0-0.2) Lactic Acid Level 2.0 mmol/L (0.4-2.0) Micro Results Date/Time Source Procedure Growth Status 04/16/17 15:47 Blood Blood Culture Pending Received 04/16/17 15:33 Blood Blood Culture Pending Received 04/16/17 13:52 Urine , Clean Catch Urine Culture Pending Received Risk Factors for Resistance * Hospitalization for 48 hours or more within the past 90 days Assessment & Plan Assessment 31 year old female admitted with possible pelvic abscess starting Ampicillin/ Clindamycin/Gentamicin standard regimen. * s/p hysterectomy 03/08/17 * renal function appears normal with Serum creatinine 0.73 mg/dL, ordered serum creatinine levels for 04/18 and 04/19 * will implement Gentamicin extended dosing interval regimen using 7 mg/kg based on adjusted weight dosing * Actual body weight = 62 kg, adjusted dosing weight = 54.9 kg Plan IV Ampicillin/Clindamycin/Gentamicin for treatment of pelvic abscess Gentamicin * Patient meets criteria for extended-interval aminoglycoside dosing per the [place] nomogram * Dose: 380 mg (7 mg/kg) IV every 24 hours * Dosage based on adjusted body weight for patients weighing > 120% of ideal body weight. * Random level ordered for 9 hours after the start of the infusion to ensure dosing interval is appropriate. Pharmacy will continue to follow and will adjust dose/frequency as necessary. Thank you.
[2017-04-16 22:50] VITALS: BP 119/72; PULSE 96; TEMP 37.5; O2SAT 97
[2017-04-16] MEDS: AMPICILLIN IV 1 GM in SODIUM CHLOR 0.9% AD-VAN 50ML 50 ML IV SCH (23:21)
--- NOTE | 2017-04-16 23:43 | HISTORY & PHYSICAL EXAMINATION ---
DATE OF ADMISSION: 04/16/2017 HISTORY OF PRESENT ILLNESS: A 31-year-old G3, P3 status post robotic hysterectomy and right oophorectomy on 03/08/[address] Oscar. The patient presents today with acute onset of pelvic pain x24 hours as well as fever, vaginal drainage and malaise. Her recent history includes the aforementioned hysterectomy on April 08 for endometriosis and chronic pelvic pain following the surgery. It is notable that the patient had contacted our office with some postoperative pain; however, she did not make or keep a 2-week postop check appointment. The patient was sent certified letters as we were unable to reach her and she was then lost to follow up. On March 31, the patient presented to our emergency department with a complaint of falling and hurting her knee. She was evaluated and treated for such. Unfortunately, there is no mention that either the patient disclosed nor that the ER discovered her recent hysterectomy and no lab work appears to have been done. The patient then was at home yesterday evening where she reports engaging in sexual intercourse around 10:30 p.m. She noticed that she felt a pop and sudden onset of pain during sexual intercourse. The pain became persistent and worsening through the evening to a 7/10. She also noted onset of moderate vaginal bleeding at the time of the popping and pain which gradually tapered off through the night as well as fever to 102 degrees at home, chills, nausea, lack of appetite and dysuria. The patient comes to the ER today with a female friend. The friend discloses that the patient lives with her male partner. The patient reports that she has been unable to take any p.o. today. Last oral intake and the only oral intake since she awakened this morning was her CAT scan contrast just shortly before I saw the patient. She has been able to void, although it is incredibly painful and her last bowel movement was yesterday. PAST MEDICAL HISTORY: Notable for endometriosis, hepatitis C, menorrhagia and a complex ovarian cyst which was resulted as a fibroma. She additionally has a history of pelvic inflammatory disease, poor dental health and concern for drug dependency. PAST SURGICAL HISTORY: Notable for cervical LEEP, 3 sections, a laparoscopic cholecystectomy and the aforementioned laparoscopic hysterectomy and RSO as well as a previous tubal ligation. FAMILY HISTORY: Notable for a sister with cardiac disease, 2 siblings with diabetes and uncle with lung cancer and aunt with breast cancer. Her father had prostate cancer and an aunt with ovarian cancer. SOCIAL HISTORY: The patient is currently unemployed. She is unmarried. She has 4 children with her male partner. She denies alcohol use. She denies current drug abuse. ALLERGIES: INCLUDE ACETAMINOPHEN AND ULTRAM TABLETS. CURRENT MEDICATIONS: None. PHYSICAL EXAMINATION: VITAL SIGNS: Temperature ranges from 36.7-37.8, her pulse ranges 99-125, respiratory rate 14-20, blood pressure 112/67-132/80, pulse ox 95-99 on room air. GENERAL: The patient appears alert, somewhat cachectic and in mild distress. Her chest is nontender. She appears to have normal respiration without laboring. ABDOMEN: Soft, however, there is voluntary guarding throughout the bilateral lower quadrants. She is tender in the right and left lower quadrants with positive rebound. There are no palpable masses. GENITOURINARY: Vaginal exam, the labia appear normal, although there is some crusted yellow solitario material as well as some old blood noted on the skin. A lighted sterile speculum was used to examine the vagina. Of note, there was approximately a quarter cup of a lemonade type fluid in the vaginal vault. On opening of the speculum, it was evident immediately that the entire vaginal cuff had dehisced approximately 1 inch x 1 inch in dimension with entrance directly into a cavity of grayish green pus which expressed down into the vagina as the speculum was opened. A sample of the vaginal fluid was collected and sent for culture. Unfortunately, I was later notified that the culture was sent in the wrong tubule and was discarded by the lab. The sterile speculum was withdrawn and the exam was brought to completion without any digital portion of the exam. LABORATORY VALUES: Noted to include a white count of 23.76 today, hemoglobin 13.9, platelets of 227. Her BUN and creatinine appear normal. Her liver function tests currently show an ALT of 90 and an ALT of 35, alkaline phosphatase of 65. The patient states that currently she is not in active hepatitis C infection. I do not see a current viral load. Review of imaging, I have personally reviewed the patient's CAT scan. Her CAT scan is notable for presacral and pericolonic abscess, inflammatory changes throughout the pelvic fat, extraluminal gas in the pelvis, mild splenomegaly and some colitis, likely secondary to the surrounding inflammatory change. ASSESSMENT: A 31-year-old 3, para 3 who is 5 weeks postoperative from a robotic laparoscopic hysterectomy and RSO who presents with a developed, pelvic abscess encasing the sigmoid colon and contiguous with a vaginal cuff which is fully dehisced. PLAN: Given the patient's significant infection, blood cultures are pending, unfortunately, she likely has had this abscess since far longer ago than last night and the acute pain episode last night likely represented rupture of the vaginal cuff with spontaneous drainage of the abscess via the vagina. I have discussed this case with both doctors, Dr. Oscar her original surgeon and Dr. Patel who will be assuming care of the patient tomorrow morning when I go off shift. We are in agreement that given the patient's acute presentation and the current vaginal drainage of the patient's pelvic abscess that the best course of action at this time is to begin triple antibiotic therapy and to defer surgical repair or washout once the patient's acute infection is somewhat controlled by IV antibiotics. A decision may better be able to be made about repairing the vaginal cuff versus allowing healing by secondary intention. In the event that the patient does not respond to antibiotic therapy, a decision would then have to be made about attempting laparotomy for washout or other approach. MTDD
[2017-04-17] MEDS: MoRPHine SULFATE 2 MG/ML CARP IV PRN ×10 (00:31→22:11)
[2017-04-17] MEDS: GENTAMICIN IV SCH (01:46)
[2017-04-17] MEDS: DEXTROSE 5% IV SCH (01:46)
[2017-04-17] MEDS: CLINDAMYCIN IV 600 MG in DEXTROSE 5% 50ML 50 ML IV SCH ×4 (04:23→21:40)
[2017-04-17 05:41] LABS: BASO % 0.1 %; BASO ABS # 0.02 K/uL (0-0.2); EOS % 0.1 %; EOS ABS # 0.02 K/uL (0-0.5); HEMATOCRIT 36.2 % (37-47); HEMOGLOBIN 12.1 g/dL (12.0-16.0); IG# 0.05 K/uL (0.00-0.02); LYMPH % 11.4 %; LYMPH ABS # 1.79 K/uL (1.2-3.4); MEAN CELL VOLUME 80.4 fL (80-100); MEAN CORPUSCULAR HEMOGLOBIN 26.9 pg (25-34); MEAN CORPUSCULAR HGB CONC 33.4 g/dl (32-36); MEAN PLATELET VOLUME 11.2 fL (7.4-10.4); MONO % 7.7 %; MONO ABS # 1.22 K/uL (0.11-0.59); NEUT % 80.4 %; NEUT ABS # 12.65 K/uL (1.4-6.5); PLATELET COUNT 189 K/uL (130-400); RED CELL DISTRIBUTION WIDTH CV 15.5 % (11.5-14.5); RED CELL DISTRIBUTION WIDTH SD 45.4 fL (36.4-46.3); WHITE BLOOD COUNT 15.75 K/uL (4.8-10.8)
[2017-04-17] MEDS: AMPICILLIN IV 1 GM in SODIUM CHLOR 0.9% AD-VAN 50ML 50 ML IV SCH ×3 (06:00→18:33)
[2017-04-17 06:16] VITALS: BP 106/63; PULSE 97; TEMP 36.9; O2SAT 97
[2017-04-17 07:57] VITALS: BP 115/71; PULSE 104; TEMP 37.3; O2SAT 95
[2017-04-17] MEDS: NICOTINE 14 MG/24 HR TDSY TD SCH (08:20)
--- NOTE | 2017-04-17 08:45 | Progress Note ---
Subjective Date of Service: Apr 17, 2017. Subjective Pt evaluation today including: conversation w/ patient, physical exam Pain: Still similar to yesterday PO Intake: Solids OK Voiding: no voiding problems Problem List Medical Problems: (1) Contusion of left knee Status: Acute (2) Dental caries Status: Acute (3) Dysuria Status: Acute (4) Facial laceration Status: Acute (5) Fall Status: Acute (6) Fall due to slipping on ice or snow Status: Acute (7) Head contusion Status: Acute (8) Hematuria Status: Acute (9) Hypokalemia Status: Acute (10) Leukocytosis Status: Acute (11) Pain Status: Acute (12) Pelvic pain Status: Acute (13) Pleurisy Status: Acute (14) Pleuritic chest pain Status: Acute (15) Postoperative abdominal pain Status: Acute (16) Pyelonephritis Status: Acute (17) Recurrent abdominal pain Status: Acute (18) Right upper quadrant abdominal pain Status: Acute (19) Right upper quadrant abdominal pain Status: Acute (20) Right-sided chest pain Status: Acute (21) Right-sided chest pain Status: Acute (22) RUQ abdominal pain Status: Acute (23) Sinus headache Status: Acute (24) Urinary tract infection Status: Acute (25) UTI (urinary tract infection) Status: Acute (26) UTI (urinary tract infection) Status: Acute Social History Problems: (1) Status post hysterectomy Status: Acute Review of Systems Constitutional: No fever, No chills Respiratory: No cough Cardiac: No chest pain Abdomen: + nausea (decreased), No vomiting Female : + vaginal discharge (Continued bryant-green pus discharge) Psychiatric: No problem reported All Other Systems: Reviewed and Negative Objective Vital Signs Date Time Temp Pulse Resp B/P (MAP) Pulse Ox O2 Delivery O2 Flow Rate FiO2 04/17/17 07:57 37.3 104 16 115/71 (86) 95 Room Air 04/17/17 06:16 36.9 97 106/63 (77) 97 Room Air 04/16/17 23:15 Room Air 04/16/17 22:50 37.5 96 16 119/72 (88) 97 Room Air 04/16/17 21:25 37.7 100 18 107/73 98 Room Air 04/16/17 21:04 37.8 106 20 112/67 95 04/16/17 21:01 37.8 106 20 112/67 95 Room Air 04/16/17 18:07 99 18 128/69 98 04/16/17 16:20 101 14 119/85 99 Room Air 04/16/17 15:22 98 16 132/80 99 Room Air 04/16/17 13:26 36.7 125 20 114/61 99 Physical Exam General Appearance: no apparent distress Respiratory/Chest: no respiratory distress, no accessory muscle use Cardiovascular: no edema Abdomen: soft, + guarding (Less than yesterday) Extremities: no pedal edema Neurologic/Psychiatric: alert Laboratory Results Last 24 Hours Test 04/16/17 13:52 04/16/17 14:51 04/16/17 15:47 04/17/17 05:11 Urine Color YELLOW Urine Appearance CLEAR Urine pH 5.5 Urine Specific Hood 1.026 Urine Protein NEG Urine Glucose (UA) NEG Urine Ketones NEG Urine Occult Blood 1+ Urine Nitrite NEG Urine Bilirubin NEG Urine Urobilinogen NEG Urine Leukocyte Esterase TRACE Urine WBC (Auto) 5-10 /hpf Urine RBC (Auto) 5-10 /hpf Urine Hyaline Casts (Auto) 1-5 /lpf Urine Epithelial Cells (Auto) >30 /lpf Urine Bacteria (Auto) NEG Urine Mucus PRESENT Urine Yeast (Auto) White Blood Count 23.76 K/uL 15.75 K/uL Red Blood Count 5.17 M/uL 4.50 M/uL Hemoglobin 13.9 g/dL 12.1 g/dL Hematocrit 41.9 % 36.2 % Mean Corpuscular Volume 81.0 fL 80.4 fL Mean Corpuscular Hemoglobin 26.9 pg 26.9 pg Mean Corpuscular Hemoglobin Concent 33.2 g/dl 33.4 g/dl Platelet Count 227 K/uL 189 K/uL Mean Platelet Volume 11.0 fL 11.2 fL Neutrophils (%) (Auto) 84.0 % 80.4 % Lymphocytes (%) (Auto) 10.9 % 11.4 % Monocytes (%) (Auto) 4.7 % 7.7 % Eosinophils (%) (Auto) 0.0 % 0.1 % Basophils (%) (Auto) 0.1 % 0.1 % Neutrophils # (Auto) 19.94 K/uL 12.65 K/uL Lymphocytes # (Auto) 2.60 K/uL 1.79 K/uL Monocytes # (Auto) 1.12 K/uL 1.22 K/uL Eosinophils # (Auto) 0.01 K/uL 0.02 K/uL Basophils # (Auto) 0.03 K/uL 0.02 K/uL RDW Standard Deviation 45.2 fL 45.4 fL RDW Coefficient of Variation 15.4 % 15.5 % Immature Granulocyte % (Auto) 0.3 % 0.3 % Immature Granulocyte # (Auto) 0.06 K/uL 0.05 K/uL Prothrombin Time 12.2 SECONDS Prothromb Time International Ratio 1.2 Activated Partial Thromboplast Time 28.3 SECONDS Partial Thromboplastin Ratio 1.1 Sodium Level 135 mmol/L Potassium Level 3.2 mmol/L Chloride Level 103 mmol/L Carbon Dioxide Level 27 mmol/L Anion Gap 5.0 mmol/L Blood Urea Nitrogen 7 mg/dl Creatinine 0.73 mg/dl Est Creatinine Clear Calc Drug Dose 94.9 ml/min Estimated GFR () 125.4 Estimated GFR (Non- 108.2 BUN/Creatinine Ratio 9.3 Random Glucose 84 mg/dl Calcium Level 8.4 mg/dl Total Bilirubin 0.9 mg/dl Aspartate Amino Transf (AST/SGOT) 35 U/L Alanine Aminotransferase (ALT/SGPT) 90 U/L Alkaline Phosphatase 65 U/L Total Protein 8.5 gm/dl Albumin 3.6 gm/dl Globulin 4.9 gm/dl Albumin/Globulin Ratio 0.7 Lactic Acid Level 2.0 mmol/L Assessment and Plan HD#2 for Pelvic abscess with vaginal cuff dehiscence. Greatly improved WBC this morning and not febrile. Pain stable to slightly improved. Vaginal drainage of abscess contents continues and is providing a natural evacuation of the pus. Continue IV antibiotics today. Case discussed with Dr. Patel who assumes care of the patient at this time. Continued [facility] stay due to: other
[2017-04-17 15:43] VITALS: BP 108/74; PULSE 100; TEMP 37.3; O2SAT 96
[2017-04-17] MEDS: ONDANSETRON INJ 2 MG/ML 2 ML VIAL IV PRN (15:53)
[2017-04-17 23:52] VITALS: BP 110/71; PULSE 94; TEMP 37.9; O2SAT 95
[2017-04-17 23:55] VITALS: TEMP 37.6
[2017-04-18] MEDS: AMPICILLIN IV 1 GM in SODIUM CHLOR 0.9% AD-VAN 50ML 50 ML IV SCH ×5 (00:18→23:30)
[2017-04-18] MEDS: MoRPHine SULFATE 2 MG/ML CARP IV PRN ×10 (00:18→23:30)
[2017-04-18] MEDS: DEXTROSE 5% IV SCH (02:18)
[2017-04-18] MEDS: GENTAMICIN IV SCH (02:18)
[2017-04-18] MEDS: CLINDAMYCIN IV 600 MG in DEXTROSE 5% 50ML 50 ML IV SCH ×4 (04:20→22:22)
[2017-04-18 06:57] VITALS: BP 106/68; PULSE 87; TEMP 36.7; O2SAT 95
[2017-04-18 07:58] LABS: BASO % 0.1 %; BASO ABS # 0.01 K/uL (0-0.2); EOS % 0.4 %; EOS ABS # 0.05 K/uL (0-0.5); HEMATOCRIT 36.9 % (37-47); HEMOGLOBIN 12.1 g/dL (12.0-16.0); IG# 0.04 K/uL (0.00-0.02); LYMPH % 7.8 %; LYMPH ABS # 1.07 K/uL (1.2-3.4); MEAN CELL VOLUME 79.4 fL (80-100); MEAN CORPUSCULAR HGB CONC 32.8 g/dl (32-36); MEAN PLATELET VOLUME 11.1 fL (7.4-10.4); MONO % 8.7 %; MONO ABS # 1.19 K/uL (0.11-0.59); NEUT % 82.7 %; NEUT ABS # 11.31 K/uL (1.4-6.5); PLATELET COUNT 189 K/uL (130-400); RED CELL DISTRIBUTION WIDTH CV 15.5 % (11.5-14.5); RED CELL DISTRIBUTION WIDTH SD 45.3 fL (36.4-46.3); WHITE BLOOD COUNT 13.67 K/uL (4.8-10.8)
--- NOTE | 2017-04-18 08:15 | OB/GYN Progress Note ---
[employer] Progress Note Date of Service Apr 18, 2017. Subjective conversation w/ patient, physical exam, chart review, lab review Ambulation: ambulating normally Diet Tolerance: Regular Diet (minimal po intake) Objective Vital Signs Date Time Temp Pulse Resp B/P (MAP) Pulse Ox O2 Delivery O2 Flow Rate FiO2 04/18/17 06:57 36.7 87 17 106/68 (81) 95 Room Air 04/18/17 00:27 Room Air 04/17/17 23:55 37.6 04/17/17 23:52 37.9 94 16 110/71 (84) 95 Room Air 04/17/17 15:43 37.3 100 18 108/74 (85) 96 Room Air 04/17/17 15:30 Room Air 04/17/17 09:01 Room Air Physical Exam General Appearance: mild distress, thin Respiratory/Chest: lungs clear Cardiovascular: regular rate, rhythm Abdomen: + guarding, + rebound, + tenderness Extremities: no calf tenderness Laboratory Results Last 24 Hours Test 04/17/17 10:54 04/18/17 07:32 04/18/17 07:33 Random Gentamicin Level 0.90 mcg/ml White Blood Count 13.67 K/uL Red Blood Count 4.65 M/uL Hemoglobin 12.1 g/dL Hematocrit 36.9 % Mean Corpuscular Volume 79.4 fL Mean Corpuscular Hemoglobin 26.0 pg Mean Corpuscular Hemoglobin Concent 32.8 g/dl Platelet Count 189 K/uL Mean Platelet Volume 11.1 fL Neutrophils (%) (Auto) 82.7 % Lymphocytes (%) (Auto) 7.8 % Monocytes (%) (Auto) 8.7 % Eosinophils (%) (Auto) 0.4 % Basophils (%) (Auto) 0.1 % Neutrophils # (Auto) 11.31 K/uL Lymphocytes # (Auto) 1.07 K/uL Monocytes # (Auto) 1.19 K/uL Eosinophils # (Auto) 0.05 K/uL Basophils # (Auto) 0.01 K/uL RDW Standard Deviation 45.3 fL RDW Coefficient of Variation 15.5 % Immature Granulocyte % (Auto) 0.3 % Immature Granulocyte # (Auto) 0.04 K/uL Assessment and Plan Day Number: 2 (1) Pelvic abscess Assessment & Plan: - pt states she hurts as much as on admission - using MSO4 q2 hours - taking po, but limited, passing flatus - rebound and guarding on exam - no formal Temp, but "spiked" to 37.8 24 hours apart - WBC down to 13.7 - will continue with triple antibiotics - discussed case with Hospital Nurse Onc in [place] - recommend ultimately closing cuff once infection is quiescent - would not do before abscess gone from pelvis - consider rescanning at some point in the future - continue present plan for now
[2017-04-18 08:28] LABS: CREATININE 0.54 mg/dl (0.60-1.20)
[2017-04-18] MEDS: NICOTINE 14 MG/24 HR TDSY TD SCH (08:36)
--- NOTE | 2017-04-18 09:50 | Pharmacy Progress Note ---
Pharmacy Abx Dose Short Note Date of Service Apr 18, 2017. Assessment & Plan Assessment 31 year old female receiving gentamicin IV for treatment of pelvic abscess. Also on clindamycin/ampicillin. Day # 2/10 of antimicrobial therapy. WBC trending down. Afebrile. Plan Gentamicin * Random level of 0.9 mcg/mL at 9 hr after 1st dose was hung is appropriate for q24h extended interval dosing. * Continue dose of 350 mg IV every 24 hours * Random level will be reordered in 3-5 days if stable. Pharmacy will continue to follow and will adjust dose/frequency as necessary. Thank you.
[2017-04-18 15:17] VITALS: BP 142/82; PULSE 111; TEMP 36.7; O2SAT 96
[2017-04-18] MEDS: ONDANSETRON INJ 2 MG/ML 2 ML VIAL IV PRN ×2 (16:33→21:00)
[2017-04-18] MEDS: IBUPROFEN 600 MG TAB PO PRN (18:49)
[2017-04-18] MEDS: OXYCODONE HCL IR 5 MG TAB (IMMEDIATE RELEASE) PO PRN (18:49)
[2017-04-18 23:31] VITALS: BP 109/74; PULSE 83; TEMP 36.7; O2SAT 97
[2017-04-19] MEDS: GENTAMICIN IV SCH (02:12)
[2017-04-19] MEDS: DEXTROSE 5% IV SCH (02:12)
[2017-04-19] MEDS: MoRPHine SULFATE 2 MG/ML CARP IV PRN ×7 (03:47→23:53)
[2017-04-19] MEDS: CLINDAMYCIN IV 600 MG in DEXTROSE 5% 50ML 50 ML IV SCH ×2 (04:04→10:38)
[2017-04-19] MEDS: AMPICILLIN IV 1 GM in SODIUM CHLOR 0.9% AD-VAN 50ML 50 ML IV SCH ×4 (05:36→23:54)
[2017-04-19 07:09] VITALS: BP 93/61; PULSE 80; TEMP 36.9; O2SAT 98
[2017-04-19] MEDS: NICOTINE 14 MG/24 HR TDSY TD SCH (08:02)
[2017-04-19 08:20] LABS: BASO % 0.1 %; BASO ABS # 0.01 K/uL (0-0.2); EOS % 1.7 %; EOS ABS # 0.14 K/uL (0-0.5); HEMATOCRIT 33.5 % (37-47); HEMOGLOBIN 11.5 g/dL (12.0-16.0); IG# 0.02 K/uL (0.00-0.02); LYMPH ABS # 1.52 K/uL (1.2-3.4); MEAN CELL VOLUME 78.6 fL (80-100); MEAN CORPUSCULAR HGB CONC 34.3 g/dl (32-36); MONO ABS # 0.88 K/uL (0.11-0.59); NEUT ABS # 5.44 K/uL (1.4-6.5); PLATELET COUNT 184 K/uL (130-400); RED CELL DISTRIBUTION WIDTH CV 14.8 % (11.5-14.5); RED CELL DISTRIBUTION WIDTH SD 42.7 fL (36.4-46.3); WHITE BLOOD COUNT 8.01 K/uL (4.8-10.8)
[2017-04-19 08:49] LABS: CREATININE 0.47 mg/dl (0.60-1.20)
--- NOTE | 2017-04-19 09:03 | Progress Note ---
Progress Note Date of Service Apr 19, 2017. Progress Note s/ pt feels better today, has appetite, +flatus, no further diarrhea since ordering the c.diff specimen, no n/v. had some chest pain with deep inspiration yesterday, not as bad today. walked alot yesterday, outside even with her sister and mom. she is voiding well. using morphine for pain, had headache yesterday and used roxicet and motrin for that and felt better. says she is still draining fluid from vagina o/ af x 33hrs, vss gen--sitting upright in bed and moving easily, smiling, and preparing her food to eat, cor rrr, lungs ctab, abd soft nabs, incisions c/d/i, ext nt calves a/ hd#4 pelvic abscess, cuff dehiscence, on triple antibiotics now af x 33 hrs. p/ pt seems to be responding to antibiotics. wbc count now normal.. will reimage pelvis and see if collection seems changed. may then need to consider cuff closure. discussed with pt, i am concerned about her noncompliance with care. she suggests to me that she thought her intercourse restrictions were like for a c/s and when i brought up personally reviewing verbally and having on her paperwork an 8 week restriction, she admitted that she didn't hear or chose not to listen. I explained that if we resuture or even if we don't she must not have intercourse at least for another 8 weeks or she will reverse her course yet again. she verbalized understanding. she says her kids are ok at home with their dad. we will get CT scan and then speak to her about the results and further plan.
[2017-04-19] MEDS ORDERED: OPTIRAY 320 IV PRN (12:15)
--- NOTE | 2017-04-19 12:45 | DIAGNOSTIC IMAGING REPORT ---
ABDOMEN AND PELVIS CT WITH IV AND ORAL CONTRAST CT DOSE: 368.78 mGy.cm HISTORY: pelvic abscess, cuff dehiscence TECHNIQUE: Multiaxial CT images of the abdomen and pelvis were performed following the use of intravenous and oral contrast. A dose lowering technique was utilized adhering to the principles of ALARA. COMPARISON STUDY: Abdomen and pelvis CT 04/16/2017. FINDINGS: Increase in size in the pelvic cul-de-sac abscess within the deep pelvis. This measures 6.4 x 2.8 cm. This previous measured 5.0 x 1.7 cm. The left adnexal/ovarian cystic lesion measures 3.8 x 3.0 cm. This has also increased in size and could represent an ovarian cyst or tubo-ovarian abscess. Small linear focus of gas and fluid collection extending superiorly from the vaginal cuff is similar in size and measures 2.9 x 0.9 cm. This is also consistent with a small abscess. There is thickening of the bladder dome and extensive inflammatory change seen throughout the pelvis. There is also thickening of the small and large bowel loops within the deep pelvis which are likely reactive to the adjacent inflammatory process. This is also progressed. No evidence for bowel obstruction. Normal appendix. The uterus is surgically absent. There is small focus of perihepatic fluid anteriorly. This measures up to 6 mm in thickness. No hepatic or splenic masses. The spleen remains mildly enlarged. The adrenal glands and pancreas are unremarkable. The kidneys enhance normally. Mild fullness within the right renal collecting system without hydronephrosis. This is not significantly changed. Mild thickening of the urothelial lining of the mid to distal ureter which may also be reactive. Borderline enlarged retroperitoneal lymph nodes. There is a new 1.3 x 0.7 cm soft tissue nodule within the anterior omentum best seen on image 178. There is an additional 3 mm soft tissue nodule within the right anterior omentum on image 256. IMPRESSION: 1. Increase in size in the 6.4 x 2.8 cm abscess within the pelvic cul-de-sac. 2. Status post hysterectomy. Small abscess extending from the vaginal cuff remains unchanged. 3. Increase in size in the 3.8 x 3.0 cm cystic lesion which appears to be within or adjacent to the left ovary. This could represent an ovarian cyst or a tubo-ovarian abscess. 4. Progressive inflammatory change within the deep pelvis which likely results in the thickening of the adjacent small bowel and large bowel loops within the deep pelvis as well as the bladder dome. No evidence for fistula at this time. 5. Small focus of perihepatic fluid seen anteriorly. This does not clearly represent an abscess at this time. 6. There are 2 small soft tissue nodules seen within the anterior omentum which are new from the prior study. This could be due to reactive lymph nodes. However, recommend follow-up to ensure resolution to exclude the possibility of a peritoneal deposit. Electronically signed by: Salazar Osborne M.D. 04/19/2017 12:43 PM Dictated Date/Time: 04/19/2017 12:29 PM
[2017-04-19 15:16] VITALS: BP 112/73; PULSE 88; TEMP 36.9; O2SAT 99
[2017-04-19 16:30] VITALS: O2SAT 99
[2017-04-19] MEDS: LACTATED RINGER'S 1000ML 1,000 ML IV SCH ×2 (17:17→21:30)
--- NOTE | 2017-04-19 17:18 | Progress Note ---
Progress Note Date of Service Apr 19, 2017. Progress Note cdiff +, will d/c clinda and add flagyl
[2017-04-19] MEDS: PROMETHAZINE HCL INJ 25 MG in SODIUM CHLORIDE 0.9% 50ML 50 ML IV PRN (18:47)
[2017-04-19] MEDS: METRONIDAZOLE / NSS 500 MG in PREMIXED NSS 100 ML IV SCH (18:48)
[2017-04-19 20:28] LABS: CALCIUM 8.4 mg/dl (8.5-10.1); CREATININE 0.63 mg/dl (0.60-1.20); POTASSIUM 3.5 mmol/L (3.5-5.1)
--- NOTE | 2017-04-19 23:23 | Progress Note ---
Progress Note Date of Service Apr 19, 2017. Progress Note spoke to radiologist and collaborated with colleagues as well as [place] [facility] [place] now without fever and nl wbc however collections larger,ie not adequately drained, recommend drainage. Although culdesac fluid could be accessed by radiology they are unsure if left ovary has just a routine cyst or abscess. sigmoid colon around it so they do not feel they could access. Given that area would need more direct visualized assessment, thought is to do EUA and clear out cul de sac abscess and manage cuff. Although an option, without any bowel prolapse, could be to allow cuff to granulate, thought can also be to reapproximate with interrupted sutures given patient lack of compliance and concern for such moving forward. As far a left ovarian cyst area, if not able to evaluated well vaginally, may opt to place laparoscope to evaluate area and manage as needed. Spoke to patient about all. She is having more pain now and localizes to right side and right lower quadrant. she did eat this am but now no appetite again. she does not feel morphine is helping and discussed adding phenergan to see if synergistic response allows her to rest. she is agreeable to this. discussed starting ivf now and allowing sips until midnight for comfort but otherwise let her bowel rest. she will be npo after midnight and plan OR in am. OR already aware. Will start SCDs now. She is aware of all of her risks, alt and complications to include but not limited to bleeding, infection, anesthesia, injury to bowel, bladder vessel, nerves, ureters, delayed complication, dvt, pulmonary embolism, , need for rehospitalization or further surgeries. Offered transfer to another facility. Pt declines. She signed consent form and desires to proceed.
[2017-04-19 23:29] VITALS: BP 115/71; PULSE 83; TEMP 37.1; O2SAT 97
[2017-04-20] VITALS (9 sets, daily range): BP systolic 108–210; BP diastolic 69–82; PULSE 55–75; TEMP 36.6–37.3; O2SAT 97–100
[2017-04-20] MEDS: PROMETHAZINE HCL INJ 25 MG in SODIUM CHLORIDE 0.9% 50ML 50 ML IV PRN (00:50)
[2017-04-20] MEDS: MoRPHine SULFATE 2 MG/ML CARP IV PRN ×6 (03:15→23:22)
[2017-04-20] MEDS: METRONIDAZOLE / NSS 500 MG in PREMIXED NSS 100 ML IV SCH ×2 (03:16→10:00)
[2017-04-20] MEDS: GENTAMICIN IV SCH (03:16)
[2017-04-20] MEDS: DEXTROSE 5% IV SCH (03:16)
[2017-04-20 04:53] LABS: BASO % 0.1 %; BASO ABS # 0.01 K/uL (0-0.2); EOS % 1.1 %; EOS ABS # 0.11 K/uL (0-0.5); HEMATOCRIT 33.5 % (37-47); HEMOGLOBIN 11.3 g/dL (12.0-16.0); IG# 0.03 K/uL (0.00-0.02); LYMPH ABS # 1.91 K/uL (1.2-3.4); MEAN CELL VOLUME 78.6 fL (80-100); MEAN CORPUSCULAR HEMOGLOBIN 26.5 pg (25-34); MEAN CORPUSCULAR HGB CONC 33.7 g/dl (32-36); MEAN PLATELET VOLUME 10.6 fL (7.4-10.4); MONO % 10.3 %; MONO ABS # 1.04 K/uL (0.11-0.59); NEUT % 69.2 %; NEUT ABS # 6.95 K/uL (1.4-6.5); PLATELET COUNT 223 K/uL (130-400); RED CELL DISTRIBUTION WIDTH CV 14.8 % (11.5-14.5); RED CELL DISTRIBUTION WIDTH SD 42.2 fL (36.4-46.3); WHITE BLOOD COUNT 10.05 K/uL (4.8-10.8)
[2017-04-20 05:15] LABS: PTT PATIENT 29.6 SECONDS (21.0-31.0)
[2017-04-20] MEDS: AMPICILLIN IV 1 GM in SODIUM CHLOR 0.9% AD-VAN 50ML 50 ML IV SCH ×4 (05:51→23:23)
[2017-04-20] MEDS: LACTATED RINGER'S 1000ML 1,000 ML IV SCH ×3 (05:51→23:20)
[2017-04-20] MEDS ORDERED: SUCCINYLCHOLINE CHLORIDE 20 MG/ML 10 ML VIAL IV ONE (07:16)
[2017-04-20] MEDS ORDERED: LIDOCAINE HCL 2% 2 ML VIAL (20MG/ML) ONE (07:16)
[2017-04-20] MEDS ORDERED: CISATRACURIUM BESYLATE IV SOLN 2 MG/ML 10 ML VIAL ONE (07:16)
[2017-04-20] MEDS ORDERED: PROPOFOL IV EMULSION 10 MG/ML 20 ML VIAL IV ONE (07:16)
[2017-04-20] MEDS ORDERED: FENTANYL CITRATE INJ 50 MCG/1 ML 2 ML VIAL ONE ×2 (07:17→09:09)
[2017-04-20] MEDS ORDERED: MIDAZOLAM HCL 1 MG/ML 2ML VIAL ONE (07:17)
[2017-04-20] MEDS ORDERED: ONDANSETRON INJ 2 MG/ML 2 ML VIAL ONE (07:23)
[2017-04-20] MEDS ORDERED: DEXAMETHASONE SOD INJ 4 MG/ML VIAL ONE (07:23)
--- NOTE | 2017-04-20 07:24 | OB/GYN Progress Note ---
DIRECTOR OF NEUROLOGY Progress Note Date of Service Apr 20, 2017. Subjective conversation w/ patient Ambulation: ambulating normally Voiding: no voiding problems Passing Gas: Yes Diet Tolerance: NPO Pain: Patient reports abdominal/pelvic pain continues - describes as "the same " Review of Systems Constitutional: No problem reported Respiratory: No problem reported Cardiac: No problem reported Breast: No problem reported Abdomen: + pain Female : + vaginal discharge (small amount of pus-like discharge) Objective Vital Signs Date Time Temp Pulse Resp B/P (MAP) Pulse Ox O2 Delivery O2 Flow Rate FiO2 04/19/17 23:46 Room Air 04/19/17 23:29 37.1 83 14 115/71 (86) 97 Room Air 04/19/17 16:30 99 Room Air 04/19/17 15:16 36.9 88 18 112/73 (86) 99 Room Air 04/19/17 07:55 Room Air Physical Exam General Appearance: uncomfortable Respiratory/Chest: no respiratory distress Cardiovascular: regular rate, rhythm Additional exam of abdomen/pelvis to be performed in OR. Laboratory Results Last 24 Hours Test 04/19/17 08:04 04/19/17 19:54 04/20/17 04:28 White Blood Count 8.01 K/uL 10.05 K/uL Red Blood Count 4.26 M/uL 4.26 M/uL Hemoglobin 11.5 g/dL 11.3 g/dL Hematocrit 33.5 % 33.5 % Mean Corpuscular Volume 78.6 fL 78.6 fL Mean Corpuscular Hemoglobin 27.0 pg 26.5 pg Mean Corpuscular Hemoglobin Concent 34.3 g/dl 33.7 g/dl Platelet Count 184 K/uL 223 K/uL Mean Platelet Volume 11.0 fL 10.6 fL Neutrophils (%) (Auto) 68.0 % 69.2 % Lymphocytes (%) (Auto) 19.0 % 19.0 % Monocytes (%) (Auto) 11.0 % 10.3 % Eosinophils (%) (Auto) 1.7 % 1.1 % Basophils (%) (Auto) 0.1 % 0.1 % Neutrophils # (Auto) 5.44 K/uL 6.95 K/uL Lymphocytes # (Auto) 1.52 K/uL 1.91 K/uL Monocytes # (Auto) 0.88 K/uL 1.04 K/uL Eosinophils # (Auto) 0.14 K/uL 0.11 K/uL Basophils # (Auto) 0.01 K/uL 0.01 K/uL RDW Standard Deviation 42.7 fL 42.2 fL RDW Coefficient of Variation 14.8 % 14.8 % Immature Granulocyte % (Auto) 0.2 % 0.3 % Immature Granulocyte # (Auto) 0.02 K/uL 0.03 K/uL Creatinine 0.47 mg/dl 0.63 mg/dl Est Creatinine Clear Calc Drug Dose 147.5 ml/min 110.0 ml/min Estimated GFR () > 150.0 136.6 Estimated GFR (Non- 129.8 117.9 Sodium Level 135 mmol/L Potassium Level 3.5 mmol/L Chloride Level 102 mmol/L Carbon Dioxide Level 27 mmol/L Anion Gap 6.0 mmol/L Blood Urea Nitrogen 4 mg/dl BUN/Creatinine Ratio 6.7 Random Glucose 92 mg/dl Calcium Level 8.4 mg/dl Prothrombin Time 10.7 SECONDS Prothromb Time International Ratio 1.0 Activated Partial Thromboplast Time 29.6 SECONDS Partial Thromboplastin Ratio 1.1 Assessment and Plan Day Number: 4 Continue Routine Care: To OR today with Dr Oscar. (1) Pelvic abscess Status: Acute
--- NOTE | 2017-04-20 07:31 | History & Physical Bridge Note ---
H&P Re-Evaluation Bridge Note: I have examined the patient, reviewed the History & Physical and in the interval since the performance of the History & Physical I have noted the following changes of clinical significance: No changes noted. Patient has c.diff and antibiotics regimen has been adjusted. she is having cramping and burning pain as well. she is aware of plan today and urged need for compliance with postoperative instructions again to include NO INTERCOURSE. this was stressed again. pt acknowledges need to comply. labs reviewed this am.
[2017-04-20] MEDS: NICOTINE 14 MG/24 HR TDSY TD SCH (07:51)
[2017-04-20] MEDS ORDERED: HYDROmorphone INJ 2 MG/ML SYR/VIAL ONE (08:13)
[2017-04-20] MEDS ORDERED: BUPIVACAINE 0.5 % 5 MG/1 ML MPF 30ML VIAL ONE (08:35)
[2017-04-20] MEDS ORDERED: NEOSTIGMINE METHYLSULFATE 5 MG/5 ML SYR ONE (09:04)
[2017-04-20] MEDS ORDERED: GLYCOPYRROLATE INJ 0.2 MG/ML VIAL ONE (09:04)
[2017-04-20] MEDS ORDERED: HYDROmorphone INJ 1 MG/ML SYR IV PRN (09:15)
[2017-04-20] MEDS ORDERED: EpHEDrine SULFATE INJ 50 MG/ML AMP IV PRN (09:15)
[2017-04-20] MEDS ORDERED: ATROPINE SULFATE 0.1 MG/ML 5ML SYR IV PRN (09:15)
[2017-04-20] MEDS ORDERED: FLUMAZENIL 0.1 MG/1 ML 10 ML VIAL IV PRN (09:15)
[2017-04-20] MEDS ORDERED: NALOXONE HCL 0.4 MG/1 ML VIAL/CARP IV PRN (09:15)
[2017-04-20] MEDS ORDERED: ONDANSETRON INJ 2 MG/ML 2 ML VIAL IV PRN (09:15)
[2017-04-20] MEDS ORDERED: LABETALOL HCL IV 5 MG/ML 20ML IV PRN (09:15)
[2017-04-20] MEDS ORDERED: PROMETHAZINE HCL INJ 12.5 MG in SODIUM CHLORIDE 0.9% 50ML 50 ML IV PRN (09:15)
--- NOTE | 2017-04-20 09:17 | [facility] Post Operative Brief Note ---
Immediate Operative Summary Operative Date Apr 20, 2017. Pre-Operative Diagnosis Pelvic Abcess, Post operative State Status Post Hysterectomy. Vaginal Cuff Dehisence Post-Operative Diagnosis Pelvic Abcess, Post operative State Status Post Hysterectomy. Vaginal Cuff Dehisence Procedure(s) Performed EUA, vaginal evacuation of abscess, vaginal cuff reapproximation, operative laparoscopy, left ovarian cystectomy, pelvic washout/irrigation Surgeon Dr Oscar Evp Operations Surgeon(s) Dr Santoro Estimated Blood Loss 1 Findings See Below (bulge in posterior cul de sac c/w abscess collection, cuff open about 4cm. left ovary initially in pelvis but easily elevated laparoscopically with cyst noted and easily removed, adhesions of colon in pelvis undisturbed. nl liver egde. all tissue pink, no evidence of mid or upper abdomen infection) see below Specimens Perminent: A: Vaginal Cuff Tissue B: Left Ovarian Cyst Culture: 1: Vaginal Cuff Tissue Drains None Anesthesia Type General Complication(s) none Disposition Accompanied Pt To Recover: no Disposition: Recovery Room / PACU
[2017-04-20] MEDS ORDERED: KETOROLAC TROMETHAMINE 30 MG/ML VIAL ONE (09:24)
--- NOTE | 2017-04-20 09:49 | Anesthesiology Progress Note ---
Anesthesia Post Op Note Date & Time Apr 20, 2017 at 09:49 Vital Signs Pain Intensity: 0 Vital Signs Past 12 Hours Date Time Temp Pulse Resp B/P (MAP) Pulse Ox O2 Delivery O2 Flow Rate FiO2 04/20/17 09:35 77 18 137/80 100 Oxymask 10 04/20/17 09:27 36.2 76 16 127/86 99 Oxymask 10 04/20/17 08:00 Room Air 04/20/17 06:58 36.9 75 16 115/71 (86) 97 Room Air 04/19/17 23:46 Room Air 04/19/17 23:29 37.1 83 14 115/71 (86) 97 Room Air Notes Mental Status: alert / awake / arousable, participated in evaluation Pt Amnestic to Procedure: Yes Nausea / Vomiting: adequately controlled Pain: adequately controlled Airway Patency, RR, SpO2: stable & adequate BP & HR: stable & adequate Hydration State: stable & adequate Anesthetic Complications: no major complications apparent
--- NOTE | 2017-04-20 10:09 | OPERATIVE REPORT ---
DATE OF OPERATION: 04/20/2017 PREOPERATIVE DIAGNOSES: 1. Pelvic abscess. 2. Postoperative state, status post hysterectomy. 3. Vaginal cuff dehiscence. POSTOPERATIVE DIAGNOSES: Same. PROCEDURES: 1. Exam under anesthesia. 2. Evacuation of abscess vaginally. 3. Reapproximation of vaginal cuff. 4. Operative laparoscopy. 5. Left ovarian cystectomy. 6. Pelvic washout/irrigation. SURGEON: Cristal Oscar MD. INTERACTIVE VIDEO TECHNICIAN: Debbie Santoro DO. ANESTHESIA: General. IV FLUIDS: 1200 mL. ESTIMATED BLOOD LOSS: 1 mL FINDINGS: Exam under anesthesia revealed a bulge in the vagina from the posterior cul-de-sac consistent with abscess collection seen on CT. Vaginal cuff open approximately 4 cm. Angles easily seen. Manual breakdown of the posterior cul-de-sac abscess collection resulted in spill of collected material into the vagina and reduction of the cul-de-sac bulge. The vaginal cuff edges pink and appeared to be healthy viable tissue. Inspection to evaluate the left ovary not accomplished vaginally well. Laparoscopic findings include left ovary mildly adhesed in the left cul-de-sac; however, easily lifted and ovarian cyst extruding that appeared hemorrhagic. Otherwise, tissue very pink within the pelvis. Adhesions of the colon to the pelvis. Normal liver edge. INDICATIONS: A 31-year-old who is approximately 5 weeks status post a total laparoscopic hysterectomy with right salpingo-oophorectomy who presented to the Emergency Room approximately 5 days ago after having intercourse and noticing fevers, chills and vaginal drainage. She was admitted for vaginal cuff dehiscence as well as evidence of pelvic abscesses. She was given IV antibiotics and although her white count responded and her temperature curve remained normal, on a repeat CT scan evaluation the abscess seemed larger. The patient also clinically was not well and developed C. diff infection as well. For this reason, she was counseled about exam under anesthesia and evacuation of the abscesses. Please see her hospital notes for more details. Also, on CT scan, there is a concern raised about a left ovarian cyst versus abscess collection and that could not be well delineated and she was also counseled about a possible need to do a laparoscopy if that could not be evaluated vaginally in order to better ascertain if there were additional abscesses higher in the abdomen. DESCRIPTION OF THE PROCEDURE: The patient was taken to the operating room and identified. After adequate general anesthesia was obtained, she was placed in the dorsolithotomy position and prepped and draped in the usual sterile fashion. A fontanez catheter was placed. Attention was turned to the patient's vagina where a weighted speculum and a right angle retractor were used to visualize the tissues. This was after a vaginal exam revealed a bulge within the cul-de-sac. Once the cuff was identified and notably open, the lower edge was grasped with an Allis clamp. Gently using fingers in the vagina, the abscess collection broke and quickly drained. The angles of the vaginal cuff were superficially tagged with 0 Vicryl sutures to allow for anatomical landmarks. The cuff area was irrigated. Using a moistened sponge stick attempt was made to visualize the left ovary area that had a concern raised about possible tubo-ovarian abscess or ovarian cyst. Of note, the patient had a prior left salpingectomy. This area was not able to be well visualized. The large cul-de-sac bulge was resolved through the manual evacuation and the tissue appeared quite viable. There were some areas of exudative tissue that were sampled and sent for culture and pathology. The vaginal tissue did not seem to be need trimming. It was quite pink, vascular and appeared to have good granulation. The vaginal cuff as previously discussed with the patient was reapproximated with single interrupted sutures x3 of 0 Vicryl. All suture material was then cut. A sponge was placed gently in the vagina in case pneumoperitoneum would not be adequate with the reapproximation of the vaginal cuff. Again, these sutures were just gently tied down and were not meant to be watertight. The attention was then turned to the patient's abdomen. It is significant to mention that a Fontanez catheter was placed at the start of the surgery. A supraumbilical skin incision was made with a scalpel. The Veress needle was placed intraperitoneally with an opening pressure of 3 mmHg. A CO2 pneumoperitoneum was created. The 11 mm optical trocar was placed under direct visualization into the pelvis. The patient was placed in steep Trendelenburg. A 5 mm trocar site was placed left to the midline by first creating a skin incision and then placing under direct visualization. Using the suction chemical analyst, blunt probe, the pelvis was inspected. The left ovary initially seemingly adhesed in the pelvis was actually easily elevated and emanating from its one side was an extruding ovarian cyst that appeared hemorrhagic. This tissue was teased out and sent as specimen. The colon was adhesed in the pelvis but the pelvis was completely irrigated. There was no other further evidence of loculations or collections. The mid and upper abdomen apart from the cul-de-sac area was completely clear. There was no evidence of exudative tissue. The irrigation fluid was clear and therefore, irrigation was ultimately stopped. The CO2 gas was allowed to escape from the patient's abdomen and the trocars were removed. The supraumbilical skin incision was reapproximated at the fascial level with an interrupted suture of 0 Vicryl followed by a skin closure of the 2 incisions with 4-0 Vicryl in a subcuticular fashion. The incisions were injected with Marcaine and dressed with dermabond. Attention was returned to the vagina after the sponge was removed to make sure there was no further disruptions or concerns vaginally and everything was normal. The Fontanez catheter was removed. The patient was returned to supine position and awoke from anesthesia. She was transferred to the recovery room in stable condition. All sponge, lap and needle counts were correct x2. I attest to the content of the Intraoperative Record and any orders documented therein. Any exceptions are noted below. MTDD
--- NOTE | 2017-04-20 11:59 | Progress Note ---
Progress Note Date of Service Apr 20, 2017. Progress Note went to see pt now postop from eua, evac of abscess, oper lpsc. she was in br, having diarrhea with cdiff. on amp, gent and flagyl. she walked out from br and sat on bed upright and smiling. she has cramping and burning pain and as of now unsure if her pelvic pain is better. explained surgery and hopeful benefits of evacuating abscess. made her aware i evaluated the left ovary and only typical cyst, may have been hemorrhagic she is aware of plan to cont iv abx, reeval with labs, follow temp curves and her clinical progress. discussed how pain can be managed but may not be eliminated through her recovery. she must not have intercourse at all. I am planning to rec no intercourse for 12 weeks. at that time asked her if she is safe in home, was she forced to be SA early and she denied. asked about her ER visits for falling and how as a young person seems weird that she would fall so much. Is she sedated? out of it? or being pushed or hurt and she denied. she says she is safe in her home. she says she fell on ice last time and time before she was wearing slippery socks and her government housing has "cheap indoor/outdoor" carpet that is easily slippery. she asked for soup and i am ok with her taking po when she wants. she is aware that her course is dependent on how she feels, what her labs and temp curve looks like. need to treat her cdiff. may need her to f/u PCP, Karine Santizo in [place] regarding management of that as outpt or ultimately depending on how she does request inpt consult. we will see.
--- NOTE | 2017-04-20 15:41 | Progress Note ---
Progress Note Date of Service Apr 20, 2017. Progress Note phone call from pharmacist june. she feels given pt c.diff better to treat with po flagyl. would achieve appropriate levels po for abscess trt as well. will switch to po. we discussed vancomycin but i am concerned about coverage and pt ability to get a outpt with insurance
[2017-04-20] MEDS: METRONIDAZOLE 500 MG TAB PO SCH ×2 (15:45→21:29)
[2017-04-20] MEDS: IBUPROFEN 600 MG TAB PO PRN (20:38)
[2017-04-20] MEDS: OXYCODONE HCL IR 5 MG TAB (IMMEDIATE RELEASE) PO PRN (21:34)
[2017-04-21] MEDS: GENTAMICIN IV SCH (01:34)
[2017-04-21] MEDS: DEXTROSE 5% IV SCH (01:34)
[2017-04-21 03:35] VITALS: BP 108/67; PULSE 73; TEMP 36.7; O2SAT 97
[2017-04-21] MEDS: AMPICILLIN IV 1 GM in SODIUM CHLOR 0.9% AD-VAN 50ML 50 ML IV SCH (06:18)
[2017-04-21 06:53] LABS: BASO % 0.2 %; BASO ABS # 0.02 K/uL (0-0.2); EOS % 0.9 %; EOS ABS # 0.09 K/uL (0-0.5); HEMATOCRIT 32.4 % (37-47); HEMOGLOBIN 10.7 g/dL (12.0-16.0); IG# 0.04 K/uL (0.00-0.02); LYMPH % 24.1 %; LYMPH ABS # 2.48 K/uL (1.2-3.4); MEAN CELL VOLUME 78.5 fL (80-100); MEAN CORPUSCULAR HEMOGLOBIN 25.9 pg (25-34); MEAN PLATELET VOLUME 10.6 fL (7.4-10.4); MONO % 9.7 %; NEUT % 64.7 %; NEUT ABS # 6.68 K/uL (1.4-6.5); PLATELET COUNT 241 K/uL (130-400); RED CELL DISTRIBUTION WIDTH CV 14.6 % (11.5-14.5); WHITE BLOOD COUNT 10.31 K/uL (4.8-10.8)
[2017-04-21] MEDS: IBUPROFEN 600 MG TAB PO PRN ×2 (07:29→21:08)
[2017-04-21 07:30] VITALS: BP 108/67; PULSE 54; TEMP 36.6; O2SAT 96
[2017-04-21] MEDS: LACTATED RINGER'S 1000ML 1,000 ML IV SCH (07:30)
[2017-04-21 08:05] VITALS: O2SAT 96
[2017-04-21] MEDS: OXYCODONE HCL IR 5 MG TAB (IMMEDIATE RELEASE) PO PRN ×2 (08:33→16:40)
[2017-04-21] MEDS: METRONIDAZOLE 500 MG TAB PO SCH ×3 (08:34→21:02)
[2017-04-21] MEDS: NICOTINE 14 MG/24 HR TDSY TD SCH (08:35)
[2017-04-21] MEDS: MoRPHine SULFATE 2 MG/ML CARP IV PRN (10:03)
--- NOTE | 2017-04-21 10:36 | OB/GYN Progress Note ---
SOLE STAINER Progress Note Date of Service Apr 21, 2017. Subjective conversation w/ patient, physical exam Ambulation: ambulating normally Voiding: no voiding problems Passing Gas: Yes Diet Tolerance: Regular Diet Pain: pain control ok on and off, taking po pain meds. cramps with bowels Notes: pt with c.diff, bm's are decreased but when she eats has more crampy pain. pelvic pain is sometimes better and sometimes not. has sore throat and some congestion. that is new. she notes some bloody fluid discharge from vagina. Objective Vital Signs Date Time Temp Pulse Resp B/P (MAP) Pulse Ox O2 Delivery O2 Flow Rate FiO2 04/21/17 08:05 96 Room Air 04/21/17 07:30 36.6 54 16 108/67 (81) 96 Room Air 04/21/17 03:35 36.7 73 16 108/67 (81) 97 Room Air 04/20/17 23:35 36.6 60 16 122/76 (91) 98 Room Air 04/20/17 20:15 Room Air 04/20/17 15:45 Room Air 04/20/17 15:10 37.3 68 18 110/73 (85) 99 Room Air 04/20/17 13:10 65 112/72 (85) 100 04/20/17 12:10 65 16 108/69 (82) 98 04/20/17 11:31 65 112/71 (85) 100 Room Air 04/20/17 10:40 65 16 118/77 (91) 100 Room Air Physical Exam General Appearance: WELL-APPEARING, WD/WN, NO APPARENT DISTRESS (lying in bed, smiling and more perky) Respiratory/Chest: lungs clear Cardiovascular: regular rate, rhythm Abdomen: normal bowel sounds, non tender, soft Incision Description: Clean, Dry & Intact (with dermabond) Extremities: non-tender Laboratory Results Last 24 Hours Test 04/21/17 06:08 White Blood Count 10.31 K/uL Red Blood Count 4.13 M/uL Hemoglobin 10.7 g/dL Hematocrit 32.4 % Mean Corpuscular Volume 78.5 fL Mean Corpuscular Hemoglobin 25.9 pg Mean Corpuscular Hemoglobin Concent 33.0 g/dl Platelet Count 241 K/uL Mean Platelet Volume 10.6 fL Neutrophils (%) (Auto) 64.7 % Lymphocytes (%) (Auto) 24.1 % Monocytes (%) (Auto) 9.7 % Eosinophils (%) (Auto) 0.9 % Basophils (%) (Auto) 0.2 % Neutrophils # (Auto) 6.68 K/uL Lymphocytes # (Auto) 2.48 K/uL Monocytes # (Auto) 1.00 K/uL Eosinophils # (Auto) 0.09 K/uL Basophils # (Auto) 0.02 K/uL RDW Standard Deviation 42.0 fL RDW Coefficient of Variation 14.6 % Immature Granulocyte % (Auto) 0.4 % Immature Granulocyte # (Auto) 0.04 K/uL Assessment and Plan Day Number: 4 (1) Pelvic abscess Status: Acute Assessment & Plan: continues to remain afebrile and with normal wbc. will switch to oral antibiotics and watch temp curve overnight. need to continue flagyl for c.diff. myra consult medicine and that is first line for c.diff. will end up sending home with script for that and rec f/u with her pcp within the week. she asked ?s about c.diff and exposing her family. she is actually having less bm now. as far as her pelvic pain, rec only po pain meds. morphine dc/d. again urged compliance with postop instructions for no intercourse for 12wks and she needs to be compliant with postop visits. i am very concerned about pt compliance and told her so so i want to watch temp curve on orals and if remains af will continue discharge tomorrow.
[2017-04-21] MEDS ORDERED: COUGH DROP (SUGAR FREE) LOZ 24 LOZ/1 BOX LOZ PRN (10:45)
[2017-04-21] MEDS: AMOXICILLIN/CLAVULANATE TAB 875 MG TAB PO SCH ×2 (11:18→18:03)
[2017-04-21] MEDS: PSEUDOEPHEDRINE HCL 30 MG TAB PO PRN ×2 (11:18→23:45)
[2017-04-21] MEDS: ONDANSETRON INJ 2 MG/ML 2 ML VIAL IV PRN (13:26)
[2017-04-21 15:50] VITALS: BP 109/70; PULSE 59; TEMP 37; O2SAT 97
[2017-04-21] MEDS ORDERED: ONDANSETRON 4MG OD TAB PO PRN (16:00)
--- NOTE | 2017-04-21 21:07 | Discharge Instructions ---
Discharge Instructions Date of Service Apr 21, 2017. Admission Reason for Admission: Dehiscence Of Vaginal Cuff, Pelvic Abscess Discharge Discharge Diagnosis / Problem: after iv antibiotics, and surgery Discharge Goals Goal(s): Routine recovery after surgery Activity Recommendations Activity Limitations: as noted below . Instructions / Follow-Up Instructions / Follow-Up POST OPERATIVE: BOWEL FUNCTION/MEDICATIONS: 1. Constipation pain and discomfort are the most common complaints 5-7 days after surgery. Points 2-6 address the things that can help. 2. Chewing gum can help stimulate the gut and help improve digestion and motility. 3. Milk of Magnesia 1-2 times per day until return of bowel function. 4. Colace is a stool softener that helps. Taking this 2-3 times per day until bowel function returns to normal is highly recommended. 5. Dulcolax is a laxative that may be used if several days have passed without a bowel movement. Alternatively Miralax may be used daily instead. 6. Drink plenty of fluids as this will also reduce constipation. 7. Narcotic pain medications will be prescribed by your physician. They are safe to use and we encourage you to use them. If you are not allergic, ibuprofen will also be prescribed. Many patients will be able to transition off of the narcotic medications to ibuprofen by postoperative day 3. ACTIVITY RECOMMENDATIONS: 1. Get plenty of rest and listen to your body. If you are tired, take a nap. 2. You may shower, but do not take a tub bath until you see your doctor at the 2 week post operative visit. 3. Absolutely NO intercourse FOR 12 WEEKS OR 3 MONTHS and nothing in the vagina until you are examined by your doctor in the office at your 12 week visit. 4. The main physical activity in the first week should be walking. By the second week you can slowly increase activity. There are no limits on walking up and down stairs. 5. Do not lift more than 5-10 lbs for 4 weeks. Remember the "one-handed rule", i.e. if you can lift something with only one hand it's likely okay. 6. Minimize cut press operator like vacuuming and exercising for 4 weeks. "Overdoing it" can lead to incisions not healing, pain and vaginal bleeding , so again, listen to your body. 7. Driving can be resumed when you feel able. Do not drive within 24 hours of taking a narcotic medication. EXPECTATIONS: 1. Vaginal spotting, bleeding and discharge are common after surgery. There may even be an odor to the discharge which is often related to sutures used in the vagina. If you experience heavy vaginal bleeding, call the office number day or night [phone]. 2. Bladder discomfort is common after surgery from the catheter. This usually resolves in 1-2 weeks. 3. By the end of the 3rd or 4th week you should be feeling much better. It may take up to 6 weeks for your energy levels to return to normal. 4. Narcotic medications have side effects such as: dizziness, headache, nausea and/or vomiting. If you suspect your pain medication is causing problems, call our office and we may be able to prescribe an alternate medication. 5. The skin incisions are often covered with a liquid bandage. This will gradually peel off over time. CALL THE OFFICE IF YOU HAVE ANY OF THE FOLLOWIN. Temperature of 101 degrees or higher. 2. Severe abdominal or pelvic pain not relieved by pain medication. 3. Persistent nausea or vomiting. 4. Increased pain with urination or difficulty urinating. 5. Bright red bleeding that soaks more than 1 pad per hour. CONTACT PHONE NUMBERS: Main Office: [phone] Surgical Nurse: [phone] extension [phone] FOLLOW-UP: Post-Operative Appointments: * Individual instructions will have been given about the timing of your first examination, but this is usually at the end of the second week home. * You will need to call the office at soon after discharge to make the appointment for your post-op check-up if it has not already been scheduled. YOU NEED A POSTOPERATIVE APPT IN 2 WEEKS. CALL OFFICE TO MAKE APPOINTMENT ROSSI NO INTERCOURSE FOR 12 WEEKS OR 3 MONTHS--so not any time sooner than JULY 202017. YOU WILL BE SEEN BEFORE YOU ARE CLEARED FOR INTERCOURSE. WE WISH YOU A SPEEDY RECOVERY! Current Hospital Diet Patient's current hospital diet: Regular Diet Discharge Diet Recommended Diet: Regular Diet Procedures Procedures Performed: EUA, vaginal evacuation of abscess, vaginal cuff reapproximation, operative laparoscopy, left ovarian cystectomy, pelvic washout/irrigation Pending Studies Studies pending at discharge: yes List of pending studies: pathology Medical Emergencies . Who to Call and When: Medical Emergencies: If at any time you feel your situation is an emergency, please call 911 immediately. . Non-Emergent Contact Non-Emergency issues call your: Licensed Psychologist Director . . "Provider Documentation" section prepared by Cristal Oscar. . VTE Core Measure Inpt VTE Proph given/why not?: [facility] [place] Drug Monitoring Program Search Results: patient reviewed within database, see additional documentation (pt has chronic narcotic use. we have discussed. has postoperative indication for narcotic)
[2017-04-21 23:00] VITALS: BP 109/68; PULSE 70; TEMP 36.6; O2SAT 93
[2017-04-22] MEDS: OXYCODONE HCL IR 5 MG TAB (IMMEDIATE RELEASE) PO PRN (00:50)
[2017-04-22 07:11] VITALS: BP 112/70; PULSE 71; TEMP 36.6; O2SAT 94
--- NOTE | 2017-04-22 08:17 | OB/GYN Progress Note ---
DOCK ATTENDANT Progress Note Date of Service Apr 22, 2017. Subjective conversation w/ patient, physical exam Ambulation: ambulating normally Voiding: no voiding problems Passing Gas: Yes Diet Tolerance: Regular Diet Pain: improved from when she came in but different now Notes: not as much pressure in vagina. some cramping pain but diarrhea decreasing, wants to go home. Objective Vital Signs Date Time Temp Pulse Resp B/P (MAP) Pulse Ox O2 Delivery O2 Flow Rate FiO2 04/22/17 07:11 36.6 71 16 112/70 (84) 94 Room Air 04/21/17 23:30 Room Air 04/21/17 23:00 36.6 70 16 109/68 (82) 93 Room Air 04/21/17 15:50 37.0 59 16 109/70 (83) 97 Room Air 04/21/17 15:50 Room Air Physical Exam General Appearance: WELL-APPEARING, WD/WN, NO APPARENT DISTRESS Respiratory/Chest: lungs clear Cardiovascular: regular rate, rhythm Abdomen: normal bowel sounds, non tender, soft Incision Description: Clean, Dry & Intact (with dermabond) Assessment and Plan Post-Op Day Number: 2 (1) Pelvic abscess Status: Acute Assessment & Plan: pt is hospital day #7 from admission for pelvic abscess and cuff dehiscence, related to non compliance with instructions after TLH on Feb. She had intercourse. She was given IV antibiotics and white count improved and normalized. Continues to be normal today. Normal fever curve. CT imaging on Saturday with larger cul de sac collection. OR on saturday and had procedure to break up/drain abscess and evaluated the left ovary as well. She was changed to oral antibiotics and has remained afebrile as well. She did develop c.diff and currently on flagyl and seems to be improving. Ready for discharge. We will plan out pt augmentin and she will also need flagyl. Needs to see pcp re: her c.diff dx and any followup or plans with that. Today I reviewed in the presence of nursing patient restrictions. She may not have intercourse for 12wks and repeated that back to me. We discussed worsening complications with non compliance and possible fistulas that could still come. We discussed her lack of followup after her original TLH despite our multiple calls and certified letter and she vows to followup. I will plan to see her in 2wks in office. She should see pcp this wk as well. She verbalized understanding of the importance of followup and compliance with restrictions. I also discussed pain management and my recommendation to use limited narcotic if possible now and in her life. I discussed addiction with her and need for appropriate pain control but also some expectation of pain management. Again she verbalized understanding.
[2017-04-22] MEDS ORDERED: RXC5 PO (08:25)
[2017-04-22] MEDS ORDERED: MTR500 PO (08:25)
[2017-04-22] MEDS: AMOXICILLIN/CLAVULANATE TAB 875 MG TAB PO SCH (08:30)
[2017-04-22 08:34] VITALS: BP 112/70; PULSE 71; TEMP 36.6; O2SAT 94
[2017-04-22] MEDS: METRONIDAZOLE 500 MG TAB PO SCH (08:39)
[2017-04-22] MEDS: NICOTINE 14 MG/24 HR TDSY TD SCH (08:39)
== END 2017-04-22 08:56 | disposition home or self-care (01) | DRG 742 ==
LOC: C.EDB 13:24 → C.MSW 20:01 → ENRESERV 20:30
PROVIDERS: ADMIT Obstetrics & Gynecology; ATTEND Obstetrics & Gynecology
PROC: 0UB14ZX Excision of Left Ovary, Percutaneous Endoscopic Approach, Diagnostic (ICD-10-PCS; principal; 2017-04-20 07:30)
PROC: 0UQG7ZZ Repair Vagina, Via Natural or Artificial Opening (ICD-10-PCS; principal; 2017-04-20 07:30)
DX: N73.5 Female pelvic peritonitis, unspecified (principal); A04.72 Enterocolitis due to Clostridium difficile, not specified as recurrent; T81.32XA Disruption of internal operation (surgical) wound, not elsewhere classified, initial encounter; N76.0 Acute vaginitis; N83.202 Unspecified ovarian cyst, left side; F17.200 Nicotine dependence, unspecified, uncomplicated; Z88.6 Allergy status to analgesic agent; Z90.710 Acquired absence of both cervix and uterus; Y83.6 Removal of other organ (partial) (total) as the cause of abnormal reaction of the patient, or of later complication, without mention of misadventure at the time of the procedure; Z91.19 Patient's noncompliance with other medical treatment and regimen

== ENCOUNTER 2017-06-05 22:10 | Emergency (ER) | payer OTHER ==
[~2017-06-05] VITALS: Ht 157.5 cm; Wt 61.4 kg
[~2017-06-05 22:10] MED LIST changes: -GABA-113 PO; +MTR500 PO; -RXC/5 PO; +RXC5 PO
[2017-06-05 22:17] VITALS: TEMP 36.9; Ht 157.5 cm; Wt 61.4 kg
[2017-06-05] MEDS ORDERED: ONDANSETRON INJ 2 MG/ML 2 ML VIAL IV STA (22:46)
[2017-06-05] MEDS ORDERED: SODIUM CHLORIDE 0.9% 1000ML 1,000 ML IV STA (22:46)
[2017-06-05] MEDS ORDERED: MoRPHine SULFATE 4 MG/ML 1 ML CARP\\VIAL IV STA (22:46)
[2017-06-05] MEDS ORDERED: OPTIRAY 320 IV PRN (23:00)
[2017-06-05 23:24] LABS: BASO % 0.7 %; BASO ABS # 0.06 K/uL (0-0.2); EOS % 1.5 %; EOS ABS # 0.13 K/uL (0-0.5); HEMATOCRIT 39.9 % (37-47); HEMOGLOBIN 13.3 g/dL (12.0-16.0); IG# 0.02 K/uL (0.00-0.02); LYMPH ABS # 3.12 K/uL (1.2-3.4); MEAN CORPUSCULAR HEMOGLOBIN 26.7 pg (25-34); MEAN CORPUSCULAR HGB CONC 33.3 g/dl (32-36); MEAN PLATELET VOLUME 11.1 fL (7.4-10.4); MONO % 6.6 %; MONO ABS # 0.56 K/uL (0.11-0.59); NEUT ABS # 4.54 K/uL (1.4-6.5); PLATELET COUNT 236 K/uL (130-400); RED CELL DISTRIBUTION WIDTH SD 44.1 fL (36.4-46.3); WHITE BLOOD COUNT 8.43 K/uL (4.8-10.8)
[2017-06-05 23:39] VITALS: O2SAT 98
[2017-06-05 23:41] LABS: ALBUMIN 3.5 gm/dl (3.4-5.0); CALCIUM 8.4 mg/dl (8.5-10.1); CREATININE 0.63 mg/dl (0.60-1.20); POTASSIUM 3.3 mmol/L (3.5-5.1)
[2017-06-06] MEDS ORDERED: POTASSIUM CHLORIDE 10 MEQ TABCR PO STA (01:26)
[2017-06-06 01:36] VITALS: BP 98/55; PULSE 78; O2SAT 98
--- NOTE | 2017-06-06 04:13 | EMERGENCY ROOM VISIT NOTE ---
History First contact with patient: 22:40 Chief Complaint: ABDOMINAL PAIN Stated Complaint: LOW ABD PAIN NAUSEA Nursing Triage Summary: Pt states she fell on ice around 5pm and has had lower abdominal pain since then. Pt states she had mesh placed in the beginning of april. History of Present Illness The patient is a 32 year old female who presents to the Emergency Room with complaints of suprapubic pain for the past few hours after she slipped and fell on the ice today landing on her buttocks. Patient's had a robotic hysterectomy earlier this year with complication of an abscess. She then had a mesh placed back in April by Dr. Oscar. She has not had intercourse since her surgery. Patient states she has had some white discharge and a little bit of pink when she wiped. She describes the pain as aching, ranging in severity 7 out of 10 worse with movement and better with rest. It does not radiate. Patient denies chest pain, dyspnea, fever, chills, vomiting, diarrhea, flank pain, back pain, urinary symptoms. Patient denies risk for STI's. Review of Systems An 10 system review of systems was completed with positives and pertinent negatives listed in the HPI. Past Medical/Surgical History Medical Problems: (1) Acute liver failure (2) BREECH PRESENTAT-DELIVER (3) Chronic bladder pain (4) Complex cyst of right ovary (5) Dehiscence of vaginal cuff (6) Deliver-Single Liveborn (7) DENTAL DISORDER NOS (8) Dysmenorrhea (9) FEM PELV INFLAM DIS NOS (10) Hepatitis C (11) Menometrorrhagia (12) Prev Delivry W/ Or W/O Ment Antepart Cond Surgical Problems: (1) History of hysterectomy (2) Hx of cholecystectomy Family History FH: HTN (hypertension) FH: cancer FH: diabetes mellitus FH: lung disease FH: seizures Heart disease Social History Smoking Status: Current Every Day Smoker Alcohol Use: none Drug Use: none Marital Status: single Housing Status: lives with family Occupation Status: employed Current/Historical Medications No Active Prescriptions or Reported Meds Physical Exam Vital Signs Date Time Temp Pulse Resp B/P (MAP) Pulse Ox O2 Delivery O2 Flow Rate FiO2 06/06/17 01:36 78 18 98/55 98 06/05/17 23:40 78 18 101/59 98 Room Air 06/05/17 23:39 98 Room Air 06/05/17 22:17 36.9 89 20 132/87 98 Room Air Physical Exam VITALS: Vitals are noted on the nurse's note and reviewed by myself. Vital signs stable. GENERAL: Pleasant female, in no acute distress, nondiaphoretic, well-developed well-nourished. SKIN: The skin was without rashes, erythema, edema, or bruising. There is no tenting of the skin. Capillary reflex less than 2 seconds. HEAD: Normocephalic atraumatic. EARS: External auditory canals clear, tympanic membranes pearly bryant without erythema or effusion bilaterally. EYES: Pupils equal round and reactive to light and accommodation. Conjunctivae without injection, sclerae without icterus. Extraocular movements intact. NOSE: Patent, turbinates without inflammation or discharge. MOUTH: Mucous membranes moist. Pharynx without erythema or exudate. Uvula midline. Airway patent. Tongue does not deviate. NECK: Supple without nuchal rigidity. No lymphadenopathy. No thyromegaly. Cervical spine is nontender. No JVD. HEART: Regular rate and rhythm without murmurs gallops or rubs. LUNGS: Clear to auscultation bilaterally without wheezes, rales or rhonchi. No retractions or accessory muscle use. ABDOMEN: Positive bowel sounds x 4. Normal tympanic percussion. Soft, tender to palpation suprapubic region without masses or organomegaly. Martin sign negative. No guarding or rebound tenderness. No CVA tenderness Pelvic exam: Normal external female genitalia, minimal white discharge in the vault, cervical cuff without laceration and sutures intact, no vaginal wall laceration, cultures taken and sent, sexual abuse counsellor present MUSCULOSKELETAL: No muscle atrophy, erythema, or edema noted. NEURO: Patient was alert and oriented to person place and time. Normal sensation to light and sharp touch. No focal neurological deficits. Medical Decision & Procedures Laboratory Results 06/05/17 23:12 Red Blood Count 4.99, Mean Corpuscular Volume 80.0, Mean Corpuscular Hemoglobin 26.7, Mean Corpuscular Hemoglobin Concent 33.3, Mean Platelet Volume 11.1, Neutrophils (%) (Auto) 54.0, Lymphocytes (%) (Auto) 37.0, Monocytes (%) (Auto) 6.6, Eosinophils (%) (Auto) 1.5, Basophils (%) (Auto) 0.7, Neutrophils # (Auto) 4.54, Lymphocytes # (Auto) 3.12, Monocytes # (Auto) 0.56, Eosinophils # (Auto) 0.13, Basophils # (Auto) 0.06 06/05/17 23:12 Test 06/05/17 23:12 White Blood Count 8.43 K/uL (4.8-10.8) Red Blood Count 4.99 M/uL (4.2-5.4) Hemoglobin 13.3 g/dL (12.0-16.0) Hematocrit 39.9 % (37-47) Mean Corpuscular Volume 80.0 fL (80-100) Mean Corpuscular Hemoglobin 26.7 pg (25-34) Mean Corpuscular Hemoglobin Concent 33.3 g/dl (32-36) Platelet Count 236 K/uL (130-400) Mean Platelet Volume 11.1 fL (7.4-10.4) Neutrophils (%) (Auto) 54.0 % Lymphocytes (%) (Auto) 37.0 % Monocytes (%) (Auto) 6.6 % Eosinophils (%) (Auto) 1.5 % Basophils (%) (Auto) 0.7 % Neutrophils # (Auto) 4.54 K/uL (1.4-6.5) Lymphocytes # (Auto) 3.12 K/uL (1.2-3.4) Monocytes # (Auto) 0.56 K/uL (0.11-0.59) Eosinophils # (Auto) 0.13 K/uL (0-0.5) Basophils # (Auto) 0.06 K/uL (0-0.2) RDW Standard Deviation 44.1 fL (36.4-46.3) RDW Coefficient of Variation 15.0 % (11.5-14.5) Immature Granulocyte % (Auto) 0.2 % Immature Granulocyte # (Auto) 0.02 K/uL (0.00-0.02) Anion Gap 6.0 mmol/L (3-11) Est Creatinine Clear Calc Drug Dose 108.5 ml/min Estimated GFR () 135.6 Estimated GFR (Non- 117.0 BUN/Creatinine Ratio 13.4 (10-20) Calcium Level 8.4 mg/dl (8.5-10.1) Total Bilirubin 0.2 mg/dl (0.2-1) Aspartate Amino Transf (AST/SGOT) 21 U/L (15-37) Alanine Aminotransferase (ALT/SGPT) 35 U/L (12-78) Alkaline Phosphatase 63 U/L (45-117) Total Protein 8.0 gm/dl (6.4-8.2) Albumin 3.5 gm/dl (3.4-5.0) Globulin 4.5 gm/dl (2.5-4.0) Albumin/Globulin Ratio 0.8 (0.9-2) Medications Administered Medications (Trade) Dose Ordered Sig/Aury Route Start Time Stop Time Status Last Admin Dose Admin Sodium Chloride 1,000 ml @ 999 mls/hr Q1H1M STAT IV 06/05/17 22:46 06/05/17 23:46 DC 06/05/17 23:35 999 MLS/HR Morphine Sulfate (MoRPHine SULFATE INJ) 4 mg NOW STAT IV 06/05/17 22:46 06/05/17 22:49 DC 06/05/17 23:35 4 MG Ondansetron HCl (Zofran Inj) 4 mg NOW STAT IV 06/05/17 22:46 06/05/17 22:49 DC 06/05/17 23:34 4 MG Potassium Chloride (Klor-Con M10) 20 meq NOW STAT PO 06/06/17 01:26 06/06/17 01:27 DC 06/06/17 01:34 20 MEQ ED Course Prior records/ancillary studies reviewed. Triage Nursing notes reviewed. Additional history obtained from family The patient's history was concerning for abdominal pain. Differential diagnosis: Etiologies such as postsurgical complication, appendicitis, diverticulitis, PUD , biliary pathology, UTI, pancreatitis, obstruction, mesenteric ischemia, aortic pathology, infections, inflammatory bowel disease, renal colic, as well as others were entertained. Physical examination findings: As above. ER treatment provided: Morphine, Zofran, IV fluids On reassessment the patient felt better. Diagnostics interpreted by me: The labs revealed no leukocytosis, stable H&H Imaging studies: CT ABDOMEN & PELVIS With Contrast: Compared to 04/19/17. Interval resolution of previously seen pelvic abscesses with minimal residual pelvic stranding. Prominent left ovary with small follicles or cyst. Ultrasound may be considered if clinically indicated. Mild fluid in small bowel loops, nonspecific, enteritis not excluded in the appropriate clinical setting. No evidence of bowel obstruction. Unremarkable appendix. No evidence of fracture. Prior cholecystectomy and additional incidental findings. Radiologist: Regi Ibarra M.D. Consultation: A consultation was placed with the OB, Dr. Suarez. The case was discussed and diagnostics were reviewed. He recommends discharge and outpatient follow-up. Exam and history seem consistent with pelvic pain most likely from the fall. Patient had no new findings. She had no vaginal laceration. Cervical cuff was intact. Patient did not have an acute abdomen on exam. She is well-appearing. She had no leukocytosis. She was tolerating fluids. Patient was advised to follow-up in the next 2 days with her DIRECTOR OF IT OPERATIONS or here in the ER sooner for abdominal pain, fevers, vomiting, heavy vaginal bleeding, worsening signs or symptoms or as needed. By the evaluation outlined above emergent etiologies such as appendicitis, diverticulitis, PUD, biliary pathology, UTI, pancreatitis, obstruction, mesenteric ischemia, aortic pathology, infections, inflammatory bowel disease, renal colic, as well as others were deemed relatively unlikely. The pt informed about the findings as listed above. All questions were answered and pleased with the treatment. Return instructions were outlined and the patient was discharged in stable condition. Case reviewed with my attending Referral: The patient was referred back to their DIRECTOR OF IT OPERATIONS for follow-up in 2 to 3 days for a recheck of the current Condition. The chart was completed utilizing [employer] Speech voice recognition software. Grammatical errors, random word insertions, pronoun errors, and incomplete sentences are an occassional consequence of this system due to software limitations, ambient noise, and hardware issues. Any formal questions or concerns about the content, text, or information contained within the body of this dictation should be directly addressed to the physician mechanic assistant for clarification. Medical Decision As above Medication Reconcilliation Current Medication List: was personally reviewed by me Blood Pressure Screening Patient's blood pressure: Normal blood pressure Impression Primary Impression: Pelvic pain Departure Information Dispostion Home / Self-Care Condition GOOD Prescriptions No Active Prescriptions or Reported Meds Forms Call Back Authorization, HOME CARE DOCUMENTATION FORM, IMPORTANT VISIT INFORMATION Patient Instructions My [facility] Additional Instructions DO NOT drive, drink alcohol, operate machinery, or perform dangerous activities today. You were given medications in the ER that can affect your ability to safely function or operate a vehicle. Ibuprofen(Motrin, Advil) may be used for fever or pain. Use 600mg every six hours as needed. Take with food. Avoid using more than 2400mg in a 24 hour period. Do not use 2400mg per day for more than three consecutive days without physician direction. Prolonged inappropriate use can lead to stomach upset or ulcers. Rest and drink plenty of fluids as tolerated. Slow sips of water or sports drinks are recommended instead of large amounts all at once. Continue current medications. Return to the ER immediately for worsening or persistent pelvic pain, abdominal pain, vomiting, fevers, chest pains, difficulty breathing, black or bloody stools, worsening of your condition, or as needed. Follow up with your DIRECTOR OF IT OPERATIONS in 1-2 days for a recheck of your current condition.
--- NOTE | 2017-06-06 07:45 | DIAGNOSTIC IMAGING REPORT ---
ABDOMEN AND PELVIS CT WITH IV CONTRAST CT DOSE: 266.31 mGy.cm HISTORY: fall, pelvic pain, recent robotic hyster with abscess comp. TECHNIQUE: Multiaxial CT images of the abdomen and pelvis were performed following the use of intravenous contrast. A dose lowering technique was utilized adhering to the principles of ALARA. COMPARISON STUDY: Abdomen and pelvis CT 04/19/2017. FINDINGS: The lung bases are clear. No pneumoperitoneum. No pneumatosis. No fractures within the visualized osseous structures. Cholecystectomy. No hepatic or splenic masses. Minimal central intrahepatic bile duct dilatation, unchanged. The adrenal glands, pancreas, and kidneys are unremarkable. No retroperitoneal lymphadenopathy. The bladder is unremarkable. The uterus is surgically absent. No pelvic abscess identified. No bowel wall thickening or obstruction. Normal appendix. Minimal residual stranding at the pelvis. The left ovary has decreased in size and contains a few small cysts. IMPRESSION: 1. Interval resolution of the pelvic abscess within only minimal residual fat stranding remaining. 2. No bowel wall thickening or obstruction. 3. Normal appendix. 4. The left ovary has decreased in size. 5. Cholecystectomy. Electronically signed by: Salazar Osborne M.D. 06/06/2017 7:43 AM Dictated Date/Time: 06/06/2017 7:35 AM
== END 2017-06-06 01:37 | disposition home or self-care (01) ==
LOC: C.EDB 22:11 → C.EDC 06-06 01:37
DX: R10.2 Pelvic and perineal pain (principal); Z82.49 Family history of ischemic heart disease and other diseases of the circulatory system; Z83.3 Family history of diabetes mellitus; Z82.0 Family history of epilepsy and other diseases of the nervous system; F17.200 Nicotine dependence, unspecified, uncomplicated